=== PATIENT | male | born 1955 | race American Indian/Alaskan Native ===

== ENCOUNTER 2019-08-19 11:23 | Emergency (ER) | payer MEDICARE ==
--- NOTE | 2019-08-19 11:39 | Event Note ---
ED Screening Note ED Screening Note: Mr. Bass is a 64 yo male with hx of COPD, HTN with dizziness and frequent falls. Has chronic hip pain. FOllowed at pain clinic, takes oxycodone. This initial assessment/diagnostic orders/clinical plan/treatment(s) is/are subject to change based on patients health status, clinical progression and re-assessment by fellow clinical providers in the ED. Further treatment and workup at subsequent clinical providers discretion. Patient/guardian urged not to elope from the ED as their condition may be serious if not clinically assessed and managed. Initial orders include: labs
--- NOTE | 2019-08-19 12:19 | Cat Scan Report ---
CT head/brain wo con INDICATION: dizziness. TECHNIQUE: Routine CT head without contrast. All CT scans at this location are performed using CT dos e reduction for ALARA by means of automated exposure control. COMPARISON: None. FINDINGS: BRAIN / INTRACRANIAL CONTENTS: No acute hemorrhage, mass effect, midline shift, or hydrocephalus. No appreciable acute large territorial or lacunar infarct. There is extensive confluent cerebral white m atter hypoattenuation suggesting chronic small vessel ischemic change and multifocal chronic lacunar infarcts in the bilateral basal ganglia. ORBITS: There is enlargement of the bilateral lacrimal glands and orbits. SINUSES / MASTOIDS: No significant abnormality of visualized sinuses and mastoid air cells. ADDITIONAL FINDINGS: None. IMPRESSION: 1. No acute intracranial abnormality. 2. Chronic small vessel ischemic change in the cerebral white matter and multifocal lacunar infarcts in the bilateral basal ganglia. 3. Enlargement of the lacrimal glands within both orbits. While not specific, bilateral lacrimal glan d enlargement can be seen in the setting of underlying lymphoma. Signer Name: Martin Lau MD Signed: 08/19/2019 12:15 PM Workstation Name: [id number]
[2019-08-19] MEDS ORDERED: ACETAMINOPHEN 325 MG TAB PO ONE (21:14)
--- NOTE | 2019-08-19 21:16 | Emergency Department Report ---
ED General Adult HPI - General Chief complaint: Dizziness Stated complaint: DIZZY/LIGHT HEADED Time Seen by Provider: 08/19/19 20:52 Source: patient, RN notes reviewed Mode of arrival: Ambulatory Limitations: No Limitations - History of Present Illness Initial comments: The patient is a pleasant 64-year-old gentleman. He is not known to myself previously. He recently moved here from [place]. He reports a history of chronic hip pain, COPD and possible hypertension. He presents to the ER with 2 complaints. His first complaint is acute on chronic bilateral hip pain. The pain is aching and throbbing. It increases with palpation, range of motion and decreases with rest. It also decreases with oxycodone, which is reportedly prescribed for him by a previous physician in the [facility]. His next complaint is cough. It has occasional sputum. He has no headache, neck pain, chest pain, abdominal pain, irritative and/or obstructive urinary symptoms. He also has chronic right sided red eye, and inferior right eyelid eversion, with some discharge. He was seen by an outpatient reception for this in the [facility]. It is not new, worsened or different. He makes no complaint of dizziness, loss of consciousness, ataxia. -: Gradual Severity scale (0 -10): 10 Quality: other Consistency: other Improves with: other Worsens with: other Associated Symptoms: other - Related Data Previous Rx's Medication Instructions Recorded Last Taken Type Acetaminophen [Non-Aspirin Extra 500 mg PO Q6HR PRN #30 tablet 08/19/19 Unknown Rx Strength] Albuterol Sulfate [Proair 90 mcg IH Q4HR PRN #2 aer.pow.ba 08/19/19 Unknown Rx Respiclick] Gentamicin 0.3% Ophth Soln 1 drops OD Q4H #1 bottle 08/19/19 Unknown Rx Ibuprofen [Motrin] 600 mg PO Q8H PRN #30 tablet 08/19/19 Unknown Rx Polyvinyl Alcohol [Artificial 15 ml OP Q2HR #1 bottle 08/19/19 Unknown Rx Tears] cloNIDine [Catapres] 0.2 mg PO BID #60 tablet 08/19/19 Unknown Rx Allergies Allergy/AdvReac Type Severity Reaction Status Date / Time No Known Allergies Allergy Unverified 08/19/19 11:32 ED Review of Systems ROS: Stated complaint: DIZZY/LIGHT HEADED Other details as noted in HPI Constitutional: denies: fever Eyes: eye discharge. denies: eye pain, vision change ENT: denies: congestion Respiratory: cough. denies: wheezing Cardiovascular: denies: syncope Gastrointestinal: denies: abdominal pain Genitourinary: denies: dysuria Musculoskeletal: arthralgia, myalgia Skin: denies: lesions Neurological: denies: headache, numbness, paresthesias ED Past Medical Hx - Social History Smoking Status: Never Smoker Substance Use Type: None - Medications Home Medications: Home Medications Medication Instructions Recorded Confirmed Last Taken Type Acetaminophen [Non-Aspirin Extra 500 mg PO Q6HR PRN #30 tablet 08/19/19 Unknown Rx Strength] Albuterol Sulfate [Proair 90 mcg IH Q4HR PRN #2 aer.pow.ba 08/19/19 Unknown Rx Respiclick] Gentamicin 0.3% Ophth Soln 1 drops OD Q4H #1 bottle 08/19/19 Unknown Rx Ibuprofen [Motrin] 600 mg PO Q8H PRN #30 tablet 08/19/19 Unknown Rx Polyvinyl Alcohol [Artificial 15 ml OP Q2HR #1 bottle 08/19/19 Unknown Rx Tears] cloNIDine [Catapres] 0.2 mg PO BID #60 tablet 08/19/19 Unknown Rx ED Physical Exam - General Limitations: No Limitations General appearance: alert, in no apparent distress - Head Head exam: Present: atraumatic, normocephalic - Eye Eye exam: Present: PERRL, EOMI, conjunctival injection (There is right-sided inferior conjunctival injection. The right inferior eyelid appears to be minimally swollen, and is extruded. It is easily reduced. The extraocular movements are intact bilaterally. There is minimal discharge noted from the right medial canthus. Pupils are equally reactive to light bilaterally. Visual acuity is intact to finger counting and color perception at a close distance). Absent: nystagmus, periorbital swelling, periorbital tenderness - ENT ENT exam: Present: normal exam, normal orophraynx, mucous membranes moist, normal external ear exam - Neck Neck exam: Present: normal inspection, full ROM. Absent: tenderness, meningismus - Respiratory Respiratory exam: Present: decreased breath sounds. Absent: respiratory distress, wheezes, rales, rhonchi, stridor - Cardiovascular Cardiovascular Exam: Present: regular rate, normal rhythm, normal heart sounds. Absent: bradycardia, tachycardia, irregular rhythm, systolic murmur, diastolic murmur, rubs, gallop - GI/Abdominal GI/Abdominal exam: Present: soft, hernia (There is a reducible right-sided inguinal hernia.). Absent: distended, tenderness, guarding, rebound, rigid, pulsatile mass - Rectal Rectal exam: Present: deferred - Extremities Exam Extremities exam: Present: normal inspection, full ROM, other (2+ pulses noted in the bilateral upper and lower extremities. There is no palpable cord. negative Homans sign. Muscular compartments are soft. The pelvis is stable.) - Back Exam Back exam: Present: normal inspection, full ROM. Absent: tenderness, CVA tenderness (R), CVA tenderness (L), paraspinal tenderness, vertebral tenderness - Neurological Exam Neurological exam: Present: alert, oriented X3, other (There is no facial droop. The tongue is midline. Extraocular movements are intact bilaterally. There is 5 out of 5 strength in bilateral upper and lower extremities. Sensation is intact to light touch bilateral upper and lower extremities. There is no past- pointing. There is no pronator drift. There is normal [id number]-ly-cevd. ). Absent: motor sensory deficit - Psychiatric Psychiatric exam: Present: flat affect - Skin Skin exam: Present: warm, dry, intact, normal color. Absent: rash ED Course Vital Signs 08/19/19 08/19/19 08/19/19 11:34 19:35 20:16 Temperature 98.4 F 97.7 F Pulse Rate 73 63 Respiratory 16 18 Rate Blood Pressure 185/94 173/102 O2 Sat by Pulse 95 96 95 Oximetry 08/19/19 08/19/19 08/19/19 20:30 20:46 21:00 Temperature Pulse Rate 58 L 60 63 Respiratory 17 18 14 Rate Blood Pressure 183/104 183/104 183/104 O2 Sat by Pulse 94 95 97 Oximetry 08/19/19 08/19/19 08/19/19 21:16 21:21 21:30 Temperature 98.6 F Pulse Rate 70 59 L Respiratory 14 16 Rate Blood Pressure 150/121 150/121 O2 Sat by Pulse 94 95 Oximetry 08/19/19 08/19/19 21:45 22:00 Temperature Pulse Rate 61 Respiratory 12 Rate Blood Pressure 150/121 150/121 O2 Sat by Pulse 95 97 Oximetry - Reevaluation(s) Reevaluation #1: 08/19/19 22:25 requests refill of clonidine 0.2 BID ED Medical Decision Making - Lab Data Vital Signs 08/19/19 08/19/19 08/19/19 11:34 19:35 20:16 Temperature 98.4 F 97.7 F Pulse Rate 73 63 Respiratory 16 18 Rate Blood Pressure 185/94 173/102 O2 Sat by Pulse 95 96 95 Oximetry 08/19/19 08/19/19 08/19/19 20:30 20:46 21:00 Temperature Pulse Rate 58 L 60 63 Respiratory 17 18 14 Rate Blood Pressure 183/104 183/104 183/104 O2 Sat by Pulse 94 95 97 Oximetry 08/19/19 08/19/19 08/19/19 21:16 21:21 21:30 Temperature 98.6 F Pulse Rate 70 59 L Respiratory 14 16 Rate Blood Pressure 150/121 150/121 O2 Sat by Pulse 94 95 Oximetry - Radiology Data Radiology results: report reviewed, image reviewed Noncontrast CT scan of the brain is negative for acute findings. Chronic findings noted. X-ray of the chest, interpreted by myself, hyperinflated lungs, suggestive of COPD, otherwise, no acute findings. - Medical Decision Making Differential diagnosis, including not limited to: Chronic arthritis, chronic COPD, chronic elevated blood pressure Assessment and plan: 64-year-old gentleman presenting with chronic hip pain, and chronic cough. He is afebrile with reassuring vital signs. He makes no complaint of dizziness, loss of consciousness, ataxia or unsteady gait to myself. His physical examination is fairly unremarkable. Elevated blood pressure is reviewed and appreciated, please reference the [employer] clinical policy on hypertension which is not acutely symptomatic. A CT scan of the brain was ordered prior to my personal evaluation. It is negative for significant findings. The patient does not appear to have an emergent medical condition at this time. He will be discharged at this time. He can follow-up with a local outpatient primary care doctor. Return precautions are reviewed. he can also follow up with an reception for his chronic ocular issues Critical care attestation.: If time is entered above; I have spent that time in minutes in the direct care of this critically ill patient, excluding procedure time. ED Disposition Clinical Impression: COPD (chronic obstructive pulmonary disease), Chronic hip pain, Elevated blood pressure reading Disposition: - TO HOME OR SELFCARE Is pt being admited?: No Does the pt Need Aspirin: No Condition: Stable Additional Instructions: Take the medications as needed and directed. Recommend patient follow-up with an outpatient primary care doctor within the next 2 to 3 weeks. Recommend patient follow-up with an outpatient reception within the next 7 to 10 days. Participate in physical activities as tolerated, rest and avoid heavy lifting. Return to the emergency room right away with new, worsened or different symptoms, or symptoms not present on the initial emergency room evaluation. Prescriptions: Polyvinyl Alcohol [Artificial Tears] 15 ml OP Q2HR #1 bottle cloNIDine [Catapres] 0.2 mg PO BID #60 tablet Gentamicin 0.3% Ophth Soln 1 drops OD Q4H #1 bottle Ibuprofen [Motrin] 600 mg PO Q8H PRN #30 tablet PRN Reason: Pain Acetaminophen [Non-Aspirin Extra Strength] 500 mg PO Q6HR PRN #30 tablet PRN Reason: Pain , Severe (7-10) Albuterol Sulfate [Proair Respiclick] 90 mcg IH Q4HR PRN #2 aer.pow.ba PRN Reason: Wheezing Referrals: CARMELITA COREAS MD [Staff Physician] - 3-5 Days ISIDRA MEJÍA MD [Staff Physician] - 3-5 Days
[2019-08-19 21:38] VITALS: BP 150/121
--- NOTE | 2019-08-19 22:00 | XRay Report ---
CHEST 2 VIEWS INDICATION / CLINICAL INFORMATION: cough. Dizziness and hypertension. COMPARISON: None available. FINDINGS: SUPPORT DEVICES: None. HEART / MEDIASTINUM: No significant abnormality. LUNGS / PLEURA: Lungs are slightly hyperinflated. No acute airspace or interstitial disease. No pneum othorax. ADDITIONAL FINDINGS: No significant additional findings. IMPRESSION: 1. Hyperinflated lungs but no acute pulmonary or pleural findings. Signer Name: Minh Monahan MD Signed: 08/19/2019 9:56 PM Workstation Name: [id number]
== END 2019-08-19 22:15 | disposition home or self-care (01) ==
LOC: ED 11:23
DX: J44.9 Chronic obstructive pulmonary disease, unspecified (principal); M25.552 Pain in left hip; M25.551 Pain in right hip; R03.0 Elevated blood-pressure reading, without diagnosis of hypertension; R51 Headache; Z79.1 Long term (current) use of non-steroidal anti-inflammatories (NSAID); Z79.899 Other long term (current) drug therapy
CPT/HCPCS: 70450; 71046

== ENCOUNTER 2019-10-13 13:41 | Inpatient (IN) | payer MEDICARE ==
--- NOTE | 2019-10-13 14:31 | Emergency Department Report ---
HPI - General Chief Complaint: Neuro Symptoms/Deficit Time Seen by Provider: 10/13/19 14:16 - HPI HPI: Room 24 The patient is a 64-year-old male present with a chief complaint of weakness. Per EMS the patient was found on his floor by his granddaughter. The patient reports he felt weak and fell to the ground 2 days ago. The patient reportedly has been on the floor for 2 days. Family noted the patient's speech has been slower and less clear than in the past. 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 The patient speech is very difficult to understand during the interview ED Past Medical Hx - Past Medical History Previous Medical History?: Yes Hx Hypertension: Yes Hx CVA: Yes (Right-sided weakness) Hx COPD: Yes Additional medical history: hips injured during previous fall - Surgical History Additional Surgical History: pollops removed from buttocks. - Family History Family history: no significant - Social History Smoking Status: Never Smoker Substance Use Type: None - Medications Home Medications: Home Medications Medication Instructions Recorded Confirmed Last Taken Type Acetaminophen [Non-Aspirin Extra 500 mg PO Q6HR PRN #30 tablet 08/19/19 Unknown Rx Strength] Albuterol Sulfate [Proair 90 mcg IH Q4HR PRN #2 aer.pow.ba 08/19/19 Unknown Rx Respiclick] Gentamicin 0.3% Ophth Soln 1 drops OD Q4H #1 bottle 08/19/19 Unknown Rx Ibuprofen [Motrin] 600 mg PO Q8H PRN #30 tablet 08/19/19 Unknown Rx Polyvinyl Alcohol [Artificial 15 ml OP Q2HR #1 bottle 08/19/19 Unknown Rx Tears] cloNIDine [Catapres] 0.2 mg PO BID #60 tablet 08/19/19 Unknown Rx ED Review of Systems ROS: Stated complaint: POSS STROKE Other details as noted in HPI Constitutional: weakness Physical Exam - Physical Exam Vital Signs: Vital Signs 10/13/19 14:06 Pulse Rate 84 Respiratory 16 Rate Blood Pressure 170/100 O2 Sat by Pulse 98 Oximetry Physical Exam: GENERAL: The patient is well-developed well-nourished male sitting on stretcher not appearing to be in acute distress. [] HEENT: Normocephalic. Atraumatic. Extraocular motions are intact. Patient has moist mucous membranes. Right conjunctiva injected and swollen NECK: Supple. Trachea midline CHEST/LUNGS: Clear to auscultation. There is no respiratory distress noted. HEART/CARDIOVASCULAR: Regular. There is no tachycardia. There is no gallop rub or murmur. ABDOMEN: Abdomen is soft, nontender. Patient has normal bowel sounds. There is no abdominal distention. SKIN: There is no rash. There is no edema. There is no diaphoresis. NEURO: The patient is awake and alert. The patient is cooperative. Cranial nerves II through XII grossly intact. The patient speaks mostly unintelligibly. Patient unable to lift right lower extremity off of bed. Patient exhibits difficulty raising right upper extremity above his head when compared to the left MUSCULOSKELETAL: There is no evidence of acute injury. ED Course Vital Signs 10/13/19 14:06 Pulse Rate 84 Respiratory 16 Rate Blood Pressure 170/100 O2 Sat by Pulse 98 Oximetry - Consultations Consultation #1: 10/13/19 15:35 Case discussed with telemetry neurologist- recommends CTA brain and neck ED Medical Decision Making - Lab Data Result diagrams: 10/13/19 14:46 10/13/19 14:46 Laboratory Tests 10/13/19 10/13/19 10/13/19 14:46 14:46 14:46 WBC 6.6 RBC 7.16 H Hgb 17.3 H Hct 53.9 H MCV 75 L MCH 24 L MCHC 32 RDW 15.4 H Plt Count 157 Lymph % (Auto) Delinquent [employer]or Story % (Auto) Delinquent Tax [employer]or Eos % (Auto) Delinquent Tax [employer]or Baso % (Auto) Delinquent Tax [employer]or Lymph # Delinquent [employer]or Story # Delinquent [employer]or Eos # Delinquent [employer]or Baso # Delinquent [employer]or Seg Neutrophils % Delinquent [employer]or Seg Neutrophils # Delinquent [employer]or PT 12.7 INR 0.94 APTT 45.8 H Thrombin Time Sodium 139 Potassium 5.3 H Chloride 97.3 L Carbon Dioxide 20 L Anion Gap 27 BUN 27 H Creatinine 1.1 Estimated GFR > 60 BUN/Creatinine Ratio 25 Glucose 99 Calcium 10.3 H Ammonia Total Creatine Kinase CK-MB (CK-2) CK-MB (CK-2) Rel Index Troponin T < 0.010 10/13/19 10/13/19 10/13/19 14:46 14:46 14:46 WBC RBC Hgb Hct MCV MCH MCHC RDW Plt Count Lymph % (Auto) Story % (Auto) Eos % (Auto) Baso % (Auto) Lymph # Story # Eos # Baso # Seg Neutrophils % Seg Neutrophils # PT INR APTT Thrombin Time 15.8 Sodium Potassium Chloride Carbon Dioxide Anion Gap BUN Creatinine Estimated GFR BUN/Creatinine Ratio Glucose Calcium Ammonia > 10.0 L Total Creatine Kinase 520 H CK-MB (CK-2) 4.0 CK-MB (CK-2) Rel Index 0.7 Troponin T - EKG Data -: EKG Interpreted by Me EKG shows normal: sinus rhythm Rate: normal - EKG Data When compared to previous EKG there are: previous EKG unavailable Interpretation: nonspecific ST-T wave joseline (T wave inversion in lead aVL) - Radiology Data Radiology results: report reviewed (Pelvis x-ray), image reviewed (Pelvis x-ray) interpreted by me: Pelvis x-ray-no acute fracture [facility] [address] [place] [address] XRay Report Signed Patient: KAMI AGUILAR MR#: [id number] : 1955 Acct:[id number] Age/Sex: 64 / M ADM Date: 10/13/19 Loc: ED Attending Dr: Ramez bennett Physician: KALLIE RACHEL MD Date of Service: 10/13/19 Procedure(s): XR pelvis 1-2V Accession Number(s): [id number] cc: KALLIE RACHEL MD Fluoro Time In Minutes: AP PELVIS INDICATION: Found on ground/ pelvic pain. COMPARISON: No relevant prior imaging study available. FINDINGS: No acute, displaced fracture is seen on this single portable view. Mild degenerative changes are noted at the hips and pelvis. IMPRESSION: 1. No acute findings. If clinical suspicion for radiographically occult fracture is high, additional views or CT should be considered. Signer Name: Sterling Becerra MD Signed: 10/13/2019 2:58 PM Workstation Name: [id number] Transcribed By: Dictated By: Sterling Becerra MD Electronically Authenticated By: Sterling Becerra MD Signed Date/Time: 10/13/191457 DD/ 55 TD/TT: - Differential Diagnosis CVA, rhabdomyolysis, hepatic encephalopathy, pelvic fracture Critical care attestation.: If time is entered above; I have spent that time in minutes in the direct care of this critically ill patient, excluding procedure time. ED Disposition Clinical Impression: CVA (cerebral vascular accident) Disposition: DC-09 OP ADMIT IP TO THIS HOSP Is pt being admited?: Yes Does the pt Need Aspirin: Yes Condition: Fair
--- NOTE | 2019-10-13 15:02 | XRay Report ---
AP PELVIS INDICATION: Found on ground/ pelvic pain. COMPARISON: No relevant prior imaging study available. FINDINGS: No acute, displaced fracture is seen on this single portable view. Mild degenerative changes are note d at the hips and pelvis. IMPRESSION: 1. No acute findings. If clinical suspicion for radiographically occult fracture is high, additional views or CT should be considered. Signer Name: Sterling Becerra MD Signed: 10/13/2019 2:58 PM Workstation Name: [id number]
[2019-10-13 15:29] LABS: Hematocrit 53.9 % (35.5-45.6); Hemoglobin 17.3 gm/dl (11.8-15.2); INR 0.94 (0.87-1.13); Mean Corpuscular HGB Conc 32 % (32-34); Mean Corpuscular Volume 75 fl (84-94); Platelet Count 157 K/mm3 (140-440); Red Blood Count 7.16 M/mm3 (3.65-5.03); Red Cell Distribution Width 15.4 % (13.2-15.2)
[2019-10-13 15:30] LABS: Partial Thromboplastin Time 45.8 Sec. (24.2-36.6)
[2019-10-13 15:52] LABS: Blood Urea Nitrogen 27 mg/dL (9-20)
[2019-10-13 15:53] LABS: BUN/Creatinine Ratio 25; Calcium 10.3 mg/dL (8.4-10.2); Hemolysis Index 64
--- NOTE | 2019-10-13 16:19 | Cat Scan Report ---
CT head/brain wo con INDICATION / CLINICAL INFORMATION: 64 years Male; neuro deficits <6hrs or sx present upon awakening. TECHNIQUE: Routine CT head without contrast. All CT scans at this location are performed using CT dos e reduction for ALARA by means of automated exposure control. COMPARISON: The study is compared to the previous CT of 08/19/2019. FINDINGS: BRAIN / INTRACRANIAL CONTENTS: There is extensive cerebral and pontine white matter disease most cons istent with microvascular angiopathy. There are old lacunar infarcts involving basal ganglia and thal ami as well as the deep cerebral white matter. The above findings appear to correlate with the previo us CT. There is no clear CT evidence of acute intracranial hemorrhage or significant mass effect. There is mild cerebral atrophy. The ventricular system remains unchanged in size and configuration. ORBITS: There is continued notable enlargement of the lacrimal glands bilaterally which correlates wi th the prior exam. There is also now a 2.2 similar rounded lesion along the visualized anterior, supe rior margin of the left parotid gland. A smaller 1 cm nodule seen on the right. The combination of fi ndings are nonspecific though may again represent lymphoproliferative disorder. SINUSES / MASTOIDS: The visualized mastoid air cells are pneumatized. There is mild scattered opacifi cation within the left mastoid air cells. CRANIOCERVICAL JUNCTION: No significant abnormality. ADDITIONAL FINDINGS: The included reconstructed images are of nondiagnostic quality. IMPRESSION: 1. There is continued extensive microvascular angiopathy as detailed above without CT evidence of acu te intracranial hemorrhage. 2. There is continued at notable enlargement of the lacrimal glands bilaterally. Additionally, a 2.2 similar rounded lesion is now seen along the anterior, superior margin of the left parotid gland, als o described above. Signer Name: Hank Dickey MD Signed: 10/13/2019 4:15 PM Workstation Name: [id number]
[2019-10-13] MEDS ORDERED: ASPIRIN 325 MG TAB PO ONE (19:31)
--- NOTE | 2019-10-13 20:12 | Cat Scan Report ---
CTA NECK WITH CONTRAST HISTORY: Ataxia COMPARISON: None. TECHNIQUE: Routine CTA of the neck was performed. 3-D/MIP reformats were postprocessed. Percentage s tenosis is determined by direct quantitative measurements of diseased internal carotid artery diamete r compared with normal distal internal carotid artery reference segments or by criteria similar to NA SCET where applicable.All CT scans at this location are performed using CT dose reduction for ALARA b y means of automated exposure control CONTRAST: 100 ml of Omnipaque 350 FINDINGS: Aortic arch: Origins of the major arteries from the aorta and aortic arch not included. Proximal inno minate, left common and left subclavian arteries are normal. Cervical vertebral arteries: No significant abnormality. Common carotid arteries: No significant abnormality. Carotid bifurcations: Normal Cervical internal carotid arteries: Cervical segment of right internal carotid artery is normal; nons tenotic calcified plaque in the proximal left internal carotid artery 2 cm from the origin Additional findings: 3 cm sized left parotid lesion; 2 smaller lesions in the left parotid measuring approximately a centimeter. 1 cm sized nodular lesion in the right parotid gland; statistically, clyde gn mixed tumors and the commonest parotid lesions. They could be multiple also. IMPRESSION: 1. No significant abnormality. Multiple parotid lesions Signer Name: Michelle Moreno MD Signed: 10/13/2019 8:07 PM Workstation Name: [id number]
--- NOTE | 2019-10-13 20:24 | Cat Scan Report ---
CTA HEAD WITH CONTRAST HISTORY: Aphasia COMPARISON: None. TECHNIQUE: Routine non-contrast CT Head, CTA of the head and post-contrast CT Head are performed. 3-D /MIP reformats postprocessed. All CT scans at this location are performed using CT dose reduction for ALARA by means of automated exposure control CONTRAST: 100 ml of Omnipaque 350 FINDINGS: CTA Head: Intracranial vertebral arteries: No significant abnormality. Basilar artery: No significant abnormality. Posterior cerebral arteries: No significant abnormality. Intracranial internal carotid arteries: No significant abnormality. Nonstenotic vascular calcificatio n Anterior cerebral arteries: No significant abnormality. Middle cerebral arteries: No significant abnormality. Dural venous sinuses:Not optimally opacified. No significant abnormality. Additional findings: 1. Enlarged lacrimal glands bilaterally symmetrically; approximately 15 mm sized lesion in the left p osterior lacrimal gland with decreased enhancement 2. Bilateral parotid lesions 3 cm sized lesion on the left side; Parotid and lacrimal gland lesions could be benign mixed tumors. However, in a focal nonenhancing are a is worrisome for lymphoma. 3. 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 Right superior ophthalmic vein is markedly dilated. IMPRESSION: [place] and middle cerebral arteries are normal. Signer Name: Michelle Moreno MD Signed: 10/13/2019 8:19 PM Workstation Name: [id number]
--- NOTE | 2019-10-14 00:33 | History and Physical Report ---
History of Present Illness Date of examination: 10/13/19 History of present illness: 64-year-old man with a history of hypertension, CVA with right hemiparesis, COPD was sent to the emergency room for evaluation. Apparently he was found on the floor and was noted to have slurred speech. The patient is unable to give a history, review of system is unobtainable. The patient will be admitted for acute CVA PAST MEDICAL HISTORY: hypertension, CVA with right hemiparesis, COPD PAST SURGICAL HISTORY: SOCIAL HISTORY: Denies alcohol, tobacco, drugs FAMILY HISTORY: Hypertension PUI?: No Medications and Allergies Allergies Allergy/AdvReac Type Severity Reaction Status Date / Time No Known Allergies Allergy Verified 10/13/19 23:12 Home Medications Medication Instructions Recorded Confirmed Last Taken Type Acetaminophen [Non-Aspirin Extra 500 mg PO Q6HR PRN #30 tablet 08/19/19 Unknown Rx Strength] Albuterol Sulfate [Proair 90 mcg IH Q4HR PRN #2 aer.pow.ba 08/19/19 Unknown Rx Respiclick] Gentamicin 0.3% Ophth Soln 1 drops OD Q4H #1 bottle 08/19/19 Unknown Rx Ibuprofen [Motrin] 600 mg PO Q8H PRN #30 tablet 08/19/19 Unknown Rx Polyvinyl Alcohol [Artificial 15 ml OP Q2HR #1 bottle 08/19/19 Unknown Rx Tears] cloNIDine [Catapres] 0.2 mg PO BID #60 tablet 08/19/19 Unknown Rx Active Meds: Active Medications Enoxaparin Sodium (Enoxaparin) 40 mg SUB-Q QDAY [place] Exam - Physical Exam Narrative exam: Gen. appearance: Patient lying in bed, no apparent distress HEENT: Normocephalic, atraumatic, pupils equally round and reactive to light, extraocular movement intact, and no sclericterus,. No JVD or thyromegaly or nodule,neck supple, no carotid bruit ,mucous membranes moist, no exudate or erythema Heart: S1, S2, regular rate and rhythm Lungs: Clear bilaterally, breathing comfortable Abdomen: Positive bowel sounds, nontender, nondistended, no organomegaly Extremity: no edema, cyanosis, clubbing Skin: No rash, nodules, warm, dry Neuro: Dysarthria, difficult to assess cranial nerves, right hemiparesis - Constitutional Vitals: Temp Pulse Resp BP Pulse Ox 97.2 F L 66 16 151/98 97 10/13/19 16:45 10/13/19 17:55 10/13/19 17:55 10/13/19 17:55 10/13/19 17:55 Results - Labs CBC & Chem 7: 10/13/19 14:46 10/13/19 14:46 Labs: Abnormal lab results 10/13/19 10/13/19 10/13/19 Range/Units 14:46 14:46 14:46 RBC 7.16 H (3.65-5.03) M/mm3 Hgb 17.3 H (11.8-15.2) gm/dl Hct 53.9 H (35.5-45.6) % MCV 75 L (84-94) fl MCH 24 L (28-32) pg RDW 15.4 H (13.2-15.2) % APTT 45.8 H (24.2-36.6) Sec. Potassium 5.3 H (3.6-5.0) mmol/L Chloride 97.3 L (98-107) mmol/L Carbon Dioxide 20 L (22-30) mmol/L BUN 27 H (9-20) mg/dL Calcium 10.3 H (8.4-10.2) mg/dL Ammonia (25-60) umol/L Total Creatine Kinase (55-170) units/L 10/13/19 10/13/19 Range/Units 14:46 14:46 RBC (3.65-5.03) M/mm3 Hgb (11.8-15.2) gm/dl Hct (35.5-45.6) % MCV (84-94) fl MCH (28-32) pg RDW (13.2-15.2) % APTT (24.2-36.6) Sec. Potassium (3.6-5.0) mmol/L Chloride (98-107) mmol/L Carbon Dioxide (22-30) mmol/L BUN (9-20) mg/dL Calcium (8.4-10.2) mg/dL Ammonia > 10.0 L (25-60) umol/L Total Creatine Kinase 520 H (55-170) units/L - Imaging and Cardiology CT Scan - head: report reviewed Assessment and Plan CTA head and neck reviewed Assessment Acute CVA Obtain MRI of the head, echo Do neuro checks, swallow screen Start aspirin, statin Consult neurology, physical and Occupational Therapy Parotid lesions Suspicious for lymphoma, consult oncology Hyperkalemia, give Kayexalate Monitor potassium Hypertension Start IV hydralazine as needed for blood pressure control COPD, stable Rhabdomyolysis Start IV fluids, monitor CK DVT prophylaxis
[2019-10-14] MEDS ORDERED: METOCLOPRAMIDE 10 MG TAB PO PRN (00:34)
[2019-10-14] MEDS ORDERED: ACETAMINOPHEN 325 MG TAB PO PRN (00:34)
[2019-10-14] MEDS ORDERED: ONDANSETRON 4 MG/2 ML INJ IV PRN (00:34)
[2019-10-14] MEDS ORDERED: MAGNESIUM HYDROXIDE (MOM) ORAL LIQD UDC PO PRN (00:34)
[2019-10-14] MEDS ORDERED: ACETAMINOPHEN 650 MG RECT SUPP PR PRN (00:34)
[2019-10-14] MEDS ORDERED: hydrALAZINE 20 MG/1 ML INJ IV PRN (00:37)
[2019-10-14] MEDS ORDERED: SODIUM POLYSTYRENE 15 GM/60 ML ORAL LIQD PO ONE (01:56)
[2019-10-14] MEDS ORDERED: FUROSEMIDE 40 MG/4 ML INJ ONE (02:10)
[2019-10-14 02:46] LABS: Creatine Kinase MB 3.2 ng/mL (0.0-4.0)
--- NOTE | 2019-10-14 08:34 | Progress Note ---
Assessment and Plan Assessment and plan: Patient is a 64 yo man with a history of hypertension, OA with chronic hip pains, COPD, chronic right eye redness with inferior right eyelid eversion under care of outpatient [facility] in [place] and prior CVA with right hemiparesis but walks with a cane who presented to [facility] ED with slurred speech and being found on the floor for 2 days. * CTA neck IMPRESSION: 1. No significant abnormality. Multiple parotid lesions * CTA head IMPRESSION: [place] and middle cerebral arteries are norm al. Additional findings: 1. Enlarged lacrimal glands bilaterally symmetrically; approximately 15 mm sized lesion in the left posterior lacrimal gland with decreased enhancement 2. Bilateral parotid lesions 3 cm sized lesion on the left side; Parotid and lacrimal gland lesions could be benign mixed tumors. However, in a focal nonenhancing area is worrisome for lymphoma. 3. 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 Right superior ophthalmic vein is markedly dilated * XRAY pelvis IMPRESSION: 1. No acute findings. If clinical suspicion for radiographically occult fracture is high, additional views or CT should be considered * 2v CXR IMPRESSION: 1. Hyperinflated lungs but no acute pulmonary or pleural findings. * CT head Impression: IMPRESSION: 1. There is continued extensive microvascular angiopathy as detailed above without CT evidence of acute intracranial hemorrhage 2. There is continued at notable enlargement of the lacrimal glands bilaterally. Additionally, a 2.2 similar rounded lesion is now seen along the anterior, superior margin of the left parotid gland, also described above. Acute CVA: Obtain MRI of the head, echo, Do neuro checks, swallow screen, Start aspirin, statin, Consult neurology, physical and Occupational Therapy, ECHO pending Parotid lesions: Suspicious for lymphoma, consult Oncology Hyperkalemia, give Kayexalate: Monitor potassium Hypertension: Start IV hydralazine as needed for blood pressure control COPD, stable Rhabdomyolysis: Start IV fluids, monitor CK Right superior ophthalmic vein is markedly dilated, ?cerebral malformation: Neurology consulted DVT prophylaxis: sq lovenox Polycythemia with Hgb 17.3, HCT 53.9: treat with IVF History Interval history: Patient was seen and examined. Follow-up on current diagnosis of CVA. Overnight uneventful as no events directly reported to me. Patient is dysarthric. Imaging, nursing note, chart, labs and old chart reviewed. PUI?: No Hospitalist Physical - Physical exam Narrative exam: Gen: thin frial NAD, Awake, Alert, dysarthric HEENT: NCAT, EOMI, right lower eye lid everted with red eyes, OP Clear Neck: supple, no adenopathy, no thyromegaly, no JVD CVS/Heart: RRR, normal S1S2, pulses present bilaterally Chest/Lungs: CTA B, Symmetrical chest expansion, good air entry bilaterally GI/Abdomen: soft, NTND, good bowel sounds, no guarding or rebound /Bladder: no suprapubic tenderness, no CVA or paraspinal tenderness Extermity/Skin: no c/c/e, no obvious rash MSK: FROM x 3, RHP Neuro: CN 2-12 grossly intact except speech, old RHP, no new focal deficits, expressive aphrasia Psych: calm - Constitutional Vitals: Temp Pulse Resp BP Pulse Ox 98.8 F 63 18 146/89 100 10/14/19 01:00 10/14/19 01:00 10/14/19 01:00 10/14/19 01:00 10/14/19 01:00 Results - Labs CBC & Chem 7: 10/13/19 14:46 10/13/19 14:46 Labs: Laboratory Last Values WBC 6.6 K/mm3 (4.5-11.0) 10/13/19 14:46 RBC 7.16 M/mm3 (3.65-5.03) H 10/13/19 14:46 Hgb 17.3 gm/dl (11.8-15.2) H 10/13/19 14:46 Hct 53.9 % (35.5-45.6) H 10/13/19 14:46 MCV 75 fl (84-94) L 10/13/19 14:46 MCH 24 pg (28-32) L 10/13/19 14:46 MCHC 32 % (32-34) 10/13/19 14:46 RDW 15.4 % (13.2-15.2) H 10/13/19 14:46 Plt Count 157 K/mm3 (140-440) 10/13/19 14:46 Lymph % (Auto) Family Services Specialist 10/13/19 14:46 [place] % (Auto) Family Services Specialist 10/13/19 14:46 Eos % (Auto) Family Services Specialist 10/13/19 14:46 Baso % (Auto) Family Services Specialist 10/13/19 14:46 Lymph # Family Services Specialist 10/13/19 14:46 Davis # Family Services Specialist 10/13/19 14:46 Eos # Family Services Specialist 10/13/19 14:46 Baso # Family Services Specialist 10/13/19 14:46 Seg Neutrophils % Family Services Specialist 10/13/19 14:46 Seg Neutrophils # Family Services Specialist 10/13/19 14:46 PT 12.7 Sec. (12.2-14.9) 10/13/19 14:46 INR 0.94 (0.87-1.13) 10/13/19 14:46 APTT 45.8 Sec. (24.2-36.6) H 10/13/19 14:46 Thrombin Time 15.8 Sec. (15.1-19.6) 10/13/19 14:46 Sodium 139 mmol/L (137-145) 10/13/19 14:46 Potassium 5.3 mmol/L (3.6-5.0) H 10/13/19 14:46 Chloride 97.3 mmol/L (98-107) L 10/13/19 14:46 Carbon Dioxide 20 mmol/L (22-30) L 10/13/19 14:46 Anion Gap 27 mmol/L 10/13/19 14:46 BUN 27 mg/dL (9-20) H 10/13/19 14:46 Creatinine 1.1 mg/dL (0.8-1.5) 10/13/19 14:46 Estimated GFR > 60 ml/min 10/13/19 14:46 BUN/Creatinine Ratio 25 % 10/13/19 14:46 Glucose 99 mg/dL (75-100) 10/13/19 14:46 Calcium 10.3 mg/dL (8.4-10.2) H 10/13/19 14:46 Ammonia > 10.0 umol/L (25-60) L 10/13/19 14:46 Total Creatine Kinase 291 units/L (55-170) H 10/14/19 07:07 CK-MB (CK-2) 3.0 ng/mL (0.0-4.0) 10/14/19 07:07 CK-MB (CK-2) Rel Index 1.0 (0-4) 10/14/19 07:07 Troponin T < 0.010 ng/mL (0.00-0.029) 10/14/19 07:07 Adams/IV: Voiding Method Urinal IV Catheter Type [Right Peripheral IV Antecubital] Active Medications - Current Medications Current Medications: Generic Name Dose Route Start Last Admin Trade Name Freq PRN Reason Stop Dose Admin Acetaminophen 650 mg 10/14/19 00:34 Tylenol PO Q4H PRN Pain, Mild (1-3) Acetaminophen 650 mg 10/14/19 00:34 Tylenol [place] Q4H PRN Pain, Mild (1-3) Aspirin 325 mg 10/14/19 10:00 Aspirin PO QDAY [place] Atorvastatin Calcium 40 mg 10/14/19 22:00 Lipitor PO QHS FEDERICA Bisacodyl 10 mg 10/14/19 00:34 Dulcolax IL QDAY PRN Constipation Enoxaparin Sodium 40 mg 10/14/19 10:00 Enoxaparin SUB-Q QDAY [facility] Hydralazine HCl 5 mg 10/14/19 00:37 Apresoline IV Q6H PRN Hypertension Sodium Chloride 1,000 mls @ 100 mls/hr 10/14/19 00:45 Nacl 0.9% 1000 Ml IV DIRECT [place] Magnesium Hydroxide 30 ml 10/14/19 00:34 Milk Of Magnesia PO Q4H PRN Constipation Metoclopramide HCl 10 mg 10/14/19 00:34 Reglan PO Q6H PRN Nausea And Vomiting Ondansetron HCl 4 mg 10/14/19 00:34 Zofran IV Q8H PRN Nausea And Vomiting Sodium Chloride 10 ml 10/14/19 00:34 Sodium Chloride Flush Syringe 10 Ml IV PRN PRN LINE FLUSH
--- NOTE | 2019-10-14 08:39 | Hem/Onc Consultation ---
History of Present Illness - Reason for Consult Consult date: 10/14/19 parotid lesion Requesting physician: ADRIENNE DALLAS?: No - History of Present Illness 64-year-old man with a history of hypertension, CVA with right hemiparesis, COPD was sent to the emergency room for evaluation. Apparently he was found on the floor and was noted to have slurred speech. The patient is unable to give a history, review of system is unobtainable. The patient was admitted for acute CVA CT showed parotid lesions - consulted for same also has high RBC count low MCV and high HB PAST MEDICAL HISTORY: hypertension, CVA with right hemiparesis, COPD SOCIAL HISTORY: Denies alcohol, tobacco, drugs FAMILY HISTORY: Hypertension Medications and Allergies Allergies Allergy/AdvReac Type Severity Reaction Status Date / Time No Known Allergies Allergy Verified 10/13/19 23:12 Home Medications Medication Instructions Recorded Confirmed Last Taken Type Acetaminophen [Non-Aspirin Extra 500 mg PO Q6HR PRN #30 tablet 08/19/19 Unknown Rx Strength] Albuterol Sulfate [Proair 90 mcg IH Q4HR PRN #2 aer.pow.ba 08/19/19 Unknown Rx Respiclick] Gentamicin 0.3% Ophth Soln 1 drops OD Q4H #1 bottle 08/19/19 Unknown Rx Ibuprofen [Motrin] 600 mg PO Q8H PRN #30 tablet 08/19/19 Unknown Rx Polyvinyl Alcohol [Artificial 15 ml OP Q2HR #1 bottle 08/19/19 Unknown Rx Tears] cloNIDine [Catapres] 0.2 mg PO BID #60 tablet 08/19/19 Unknown Rx Active Meds: Active Medications Acetaminophen (Tylenol) 650 mg PO Q4H PRN PRN Reason: Pain, Mild (1-3) Acetaminophen (Tylenol) 650 mg CO Q4H PRN PRN Reason: Pain, Mild (1-3) Aspirin (Aspirin) 325 mg PO QDAY [place] Atorvastatin Calcium (Lipitor) 40 mg PO QHS [place] Bisacodyl (Dulcolax) 10 mg CO QDAY PRN PRN Reason: Constipation Enoxaparin Sodium (Enoxaparin) 40 mg SUB-Q QDAY [place] Hydralazine HCl (Apresoline) 5 mg IV Q6H PRN PRN Reason: Hypertension Sodium Chloride (Nacl 0.9% 1000 Ml) 1,000 mls @ 100 mls/hr IV DIRECT [place] Magnesium Hydroxide (Milk Of Magnesia) 30 ml PO Q4H PRN PRN Reason: Constipation Metoclopramide HCl (Reglan) 10 mg PO Q6H PRN PRN Reason: Nausea And Vomiting Ondansetron HCl (Zofran) 4 mg IV Q8H PRN PRN Reason: Nausea And Vomiting Sodium Chloride (Sodium Chloride Flush Syringe 10 Ml) 10 ml IV PRN PRN PRN Reason: LINE FLUSH Exam - Constitutional Vitals: Last Vital Signs Temp 98.8 F 10/14/19 01:00 Pulse 63 10/14/19 01:00 Resp 18 10/14/19 01:00 BP 146/89 10/14/19 01:00 Pulse Ox 100 10/14/19 01:00 Results - Labs lab Results: Laboratory Results - last 24 hr 10/13/19 10/13/19 10/13/19 14:46 14:46 14:46 WBC 6.6 RBC 7.16 H Hgb 17.3 H Hct 53.9 H MCV 75 L MCH 24 L MCHC 32 RDW 15.4 H Plt Count 157 Lymph % (Auto) Clinical Nurse [place] % (Auto) Clinical Nurse Eos % (Auto) Clinical Nurse Baso % (Auto) Clinical Nurse Lymph # Clinical Nurse [place] # Clinical Nurse Eos # Clinical Nurse Baso # Clinical Nurse Seg Neutrophils % Clinical Nurse Seg Neutrophils # Clinical Nurse PT 12.7 INR 0.94 APTT 45.8 H Thrombin Time Sodium 139 Potassium 5.3 H Chloride 97.3 L Carbon Dioxide 20 L Anion Gap 27 BUN 27 H Creatinine 1.1 Estimated GFR > 60 BUN/Creatinine Ratio 25 Glucose 99 Calcium 10.3 H Ammonia Total Creatine Kinase CK-MB (CK-2) CK-MB (CK-2) Rel Index Troponin T < 0.010 10/13/19 10/13/19 10/13/19 14:46 14:46 14:46 WBC RBC Hgb Hct MCV MCH MCHC RDW Plt Count Lymph % (Auto) [place] % (Auto) Eos % (Auto) Baso % (Auto) Lymph # [place] # Eos # Baso # Seg Neutrophils % Seg Neutrophils # PT INR APTT Thrombin Time 15.8 Sodium Potassium Chloride Carbon Dioxide Anion Gap BUN Creatinine Estimated GFR BUN/Creatinine Ratio Glucose Calcium Ammonia > 10.0 L Total Creatine Kinase 520 H CK-MB (CK-2) 4.0 CK-MB (CK-2) Rel Index 0.7 Troponin T 10/14/19 10/14/19 01:38 07:07 WBC RBC Hgb Hct MCV MCH MCHC RDW Plt Count Lymph % (Auto) [place] % (Auto) Eos % (Auto) Baso % (Auto) Lymph # [place] # Eos # Baso # Seg Neutrophils % Seg Neutrophils # PT INR APTT Thrombin Time Sodium Potassium Chloride Carbon Dioxide Anion Gap BUN Creatinine Estimated GFR BUN/Creatinine Ratio Glucose Calcium Ammonia Total Creatine Kinase 351 H 291 H CK-MB (CK-2) 3.2 3.0 CK-MB (CK-2) Rel Index 0.9 1.0 Troponin T < 0.010 < 0.010 Assessment and Plan # parotid lesions - CT mentions - b/l - ? mixed parotid tumor one CT report mention lymphoma pt would need ENT eval for path - lacrimal and parotid lesions will also be seen in rheumatology issues. option of OP follow up # Lacrimal gland enlargement # high hb - RBC count - low MCV ? justin - thalassemia vs polycythemia pt on ASA will do iron and def IX as MCV is low would need OP follow up for high HB/HCT follow up at this time HCT is high enough to warrant # Acute CVA seen by neurology # h/o Hyperkalemia, Monitor potassium # h/o Hypertension- monitor # h/o COPD, stable # being treated for Rhabdomyolysis - Patient Problems (1) Lesion of parotid gland Current Visit: Yes Status: Acute
--- NOTE | 2019-10-14 11:39 | Magnetic Resonance Report ---
NONENHANCED MR SCAN OF THE BRAIN: INDICATION / CLINICAL INFORMATION: MAIN: stroke slurred speech--right sided weakness. TECHNIQUE: Multiplanar, multisequence MR images of the brain obtained. COMPARISON: CT scan of the head from 10/13/2019 FINDINGS: BRAIN / INTRACRANIAL CONTENTS: Abnormal MRI scan Focal area of subacute infarction is seen along the ventral maryjo on the left side of midline extendin g slightly towards the right side. This infarction is more than 12 hours old (increased T2 signal int ensity) but less than 3 days old (low ADC values). In addition, chronic ischemic changes are also seen in the maryjo due to small vessel disease. In the gradient echo images, multiple punctate areas of susceptibility changes are seen in both cereb ral hemispheres, right cerebral hemisphere and in the maryjo. More than likely, these are due to chroni c microbleeds. Subtle chronic ischemic changes are seen in the cerebral hemispheres In the cerebral hemispheres, confluent patchy white matter hyperintensities seen in both cerebral hem ispheres almost symmetric ([place] 3). High convexity cortical sulci are relatively well preserved. T hese findings suggest subcortical arteriosclerosis. Chronic lacunae are seen in the basal ganglia more on the right side. CRANIOCERVICAL JUNCTION: No significant abnormality. VASCULAR FLOW-VOIDS: No significant abnormality. ORBITS: As seen in the CT images, both lacrimal glands are markedly dilated. In addition, right super ior rectus muscle is also markedly enlarged. SINUSES / MASTOIDS: Mucosal thickening is seen in the mastoid air cells bilaterally. ADDITIONAL FINDINGS: Bilateral parotid gland lesions are seen. IMPRESSION: Subacute infarction in the ventral maryjo on the left side of midline Signer Name: Michelle Moreno MD Signed: 10/14/2019 11:35 AM Workstation Name: [id number]
[2019-10-14] MEDS: ASPIRIN 325 MG TAB PO SCH (11:45)
[2019-10-14] MEDS: ENOXAPARIN 40 MG/0.4 ML INJ SUB-Q SCH (11:49)
[2019-10-14] MEDS: SODIUM CHLORIDE 0.9% 1000 ML 1,000 ML IV SCH (11:56)
--- NOTE | 2019-10-14 12:35 | Progress Note ---
Subjective Date of service: 10/14/19 Interval history: suspect micro infarct of the left hemisphere could bwe related to polycythymia- HMCt suspect there is temporal lobe atrophy- susct due to Deg disease full note dictated PUI?: No Objective - Vital Sign Vital Signs - 12hr 10/14/19 10/14/19 10/14/19 00:40 01:00 04:00 Temperature 98.8 F Pulse Rate 63 74 Respiratory 17 18 Rate Blood Pressure Blood Pressure 146/89 [Right] O2 Sat by Pulse 100 Oximetry 10/14/19 10/14/19 10/14/19 04:19 07:58 08:48 Temperature 98.4 F 97.4 F L Pulse Rate 74 72 Respiratory 16 18 Rate Blood Pressure 156/102 127/88 Blood Pressure [Right] O2 Sat by Pulse 94 96 100 Oximetry - Laboratory Findings CBC and BMP: 10/13/19 14:46 10/13/19 14:46 Abnormal Lab Findings: Abnormal Labs 10/13/19 10/13/19 10/13/19 14:46 14:46 14:46 RBC 7.16 H Hgb 17.3 H Hct 53.9 H MCV 75 L MCH 24 L RDW 15.4 H APTT 45.8 H Potassium 5.3 H Chloride 97.3 L Carbon Dioxide 20 L BUN 27 H Calcium 10.3 H Ammonia Total Creatine Kinase 10/13/19 10/13/19 10/14/19 14:46 14:46 01:38 RBC Hgb Hct MCV MCH RDW APTT Potassium Chloride Carbon Dioxide BUN Calcium Ammonia > 10.0 L Total Creatine Kinase 520 H 351 H 10/14/19 07:07 RBC Hgb Hct MCV MCH RDW APTT Potassium Chloride Carbon Dioxide BUN Calcium Ammonia Total Creatine Kinase 291 H
--- NOTE | 2019-10-14 13:47 | Consultation ---
HISTORY OF PRESENT ILLNESS: This is a 64-year-old black male that presents to [facility] with an alteration in area of strength. His granddaughter found him on the floor, he was weak, confused, had difficulty with speech for 2-3 days. He presented with a history of CVA with right-sided weakness. He was initially assessed in the Emergency Room, blood pressure was 170/100. His glucose is 157. His potassium was 5.3. He was noted to have a very high hematocrit of 53.9 and rbc's were elevated at 7.16, which is also elevated. The patient was previously assessed initially subsequently and was felt to have had a stroke. I had reviewed his MRI scan of the brain and he has rather marked atrophy noted bilaterally and enlargement of the ventricular system as well as temporal atrophy noted bilaterally. There is a single punctate stroke in the left hemisphere, which is very ovoid in appearance noted on the superior images in the left parietal lobe. This was compared to the CT scan, and in reviewing the CT scan, I do not see any image on the CT, which represents the same finding to check whether this may in fact be some artifact. I did note again the bitemporal atrophy, which is slightly more than one would expect for his stated age and I would consider this to be abnormal for his stated age. I would comment on that issue. CTA shows no significant abnormalities. No area of any occlusive disease is present. PHYSICAL EXAMINATION: GENERAL: Elderly black male. VITAL SIGNS: Blood pressure 143/80, pulse rate 86. NEUROLOGIC: Cranial nerves II through XII are intact. Motor and sensory examination is unremarkable. The patient is very poorly responsive, has difficulty with slurred speech, does not react to the nurse very well. She is in the room and actually speaking to him as I did my examination. Has limited movement throughout. He is fully alert, follows only simple commands, disoriented to person, place, and time. IMPRESSION: There is a small punctate stroke in the left hemisphere. I am in agreement with the radiologist's interpretation of the MRI. I noticed the same finding. He does not have any abnormality on the CTA that has congruence with this however. Of interest is the fact he does have an elevated hematocrit. He may have polycythemia. He has been seen by the utility division project manager at present time. Obviously, this may represent infarct seen with polycythemia. This should be considered as a risk factor. I would also suspect he has underlying dementia given the degree of bitemporal atrophy. This certainly given his age is an abnormality, which I would comment on in describing the nature of his cortical logan matter in the temporal lobe. JOB# [id number] LINDY/CHARLENE
[2019-10-15] MEDS: SODIUM CHLORIDE 0.9% 1000 ML 1,000 ML IV SCH ×3 (01:17→20:15)
[2019-10-15 05:52] LABS: Hematocrit 46.6 % (35.5-45.6); Hemoglobin 14.9 gm/dl (11.8-15.2); Mean Corpuscular HGB Conc 32 % (32-34); Mean Corpuscular Volume 75 fl (84-94); Platelet Count 148 K/mm3 (140-440); Red Blood Count 6.18 M/mm3 (3.65-5.03); Red Cell Distribution Width 15.4 % (13.2-15.2)
[2019-10-15 06:13] LABS: BUN/Creatinine Ratio 36; Blood Urea Nitrogen 36 mg/dL (9-20); Calcium 9.1 mg/dL (8.4-10.2); Hemolysis Index 5; Iron 104 ug/dL (49-181); LDL Cholesterol,Direct 142 mg/dL (50-130); Total Iron Binding Capacity 214 mcg/dL (250-450)
[2019-10-15 06:26] LABS: Chol/HDL Ratio 4.56 %; HDL Cholesterol 46 mg/dL (40-59)
[2019-10-15] MEDS: ASPIRIN 325 MG TAB PO SCH (10:09)
[2019-10-15] MEDS: ENOXAPARIN 40 MG/0.4 ML INJ SUB-Q SCH (10:09)
--- NOTE | 2019-10-15 11:39 | Progress Note ---
Assessment and Plan Assessment and plan: Patient is a 64 yo man with a history of hypertension, OA with chronic hip pains, COPD, chronic right eye redness with inferior right eyelid eversion under care of outpatient Operations Chief in [place] and prior CVA with right hemiparesis but walks with a cane who presented to [facility] ED with slurred speech and being found on the floor for 2 days. * CTA neck IMPRESSION: 1. No significant abnormality. Multiple parotid lesions * CTA head IMPRESSION: [place] and middle cerebral arteries are norm al. Additional findings: 1. Enlarged lacrimal glands bilaterally symmetrically; approximately 15 mm sized lesion in the left posterior lacrimal gland with decreased enhancement 2. Bilateral parotid lesions 3 cm sized lesion on the left side; Parotid and lacrimal gland lesions could be benign mixed tumors. However, in a focal nonenhancing area is worrisome for lymphoma. 3. 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 Right superior ophthalmic vein is markedly dilated * XRAY pelvis IMPRESSION: 1. No acute findings. If clinical suspicion for radiographically occult fracture is high, additional views or CT should be considered * 2v CXR IMPRESSION: 1. Hyperinflated lungs but no acute pulmonary or pleural findings. * CT head Impression: IMPRESSION: 1. There is continued extensive microvascular angiopathy as detailed above without CT evidence of acute intracranial hemorrhage 2. There is continued at notable enlargement of the lacrimal glands bilaterally. Additionally, a 2.2 similar rounded lesion is now seen along the anterior, superior margin of the left parotid gland, also described above. * TTE estimated EF 55%, grade 1 Diastolic dysfunction, negative bubble study Acute CVA confirmed by MRI Left maryjo: treat with ASA/statin Parotid lesions: Suspicious for lymphoma, consulted Oncology, input noted, need ENT (none take consult here) outpatient Hyperkalemia, give Kayexalate: Monitor potassium Hypertension: Start IV hydralazine as needed for blood pressure control COPD, stable Rhabdomyolysis: Start IV fluids, monitor CK Right superior ophthalmic vein is markedly dilated, ?cerebral malformation: Neurology consulted DVT prophylaxis: sq lovenox Polycythemia with Hgb 17.3, HCT 53.9: treat with IVF 10/15/19: d/w daughter yesterday, she is hopeful for rehab, PT recommends acute rehab. History Interval history: Patient was seen and examined. Follow-up on current diagnosis of CVA. Overnight uneventful as no events directly reported to me. Patient is dysarthric. Imaging, nursing note, chart, labs and old chart reviewed. PUI?: No Hospitalist Physical - Physical exam Narrative exam: Gen: thin frial NAD, Awake, Alert, dysarthric HEENT: NCAT, EOMI, right lower eye lid everted with red eyes, OP Clear Neck: supple, no adenopathy, no thyromegaly, no JVD CVS/Heart: RRR, normal S1S2, pulses present bilaterally Chest/Lungs: CTA B, Symmetrical chest expansion, good air entry bilaterally GI/Abdomen: soft, NTND, good bowel sounds, no guarding or rebound /Bladder: no suprapubic tenderness, no CVA or paraspinal tenderness Extermity/Skin: no c/c/e, no obvious rash MSK: FROM x 3, RHP Neuro: CN 2-12 grossly intact except speech, old RHP, no new focal deficits, expressive aphrasia Psych: calm - Constitutional Vitals: Temp Pulse Resp BP Pulse Ox 97.2 F L 61 18 129/86 96 10/15/19 07:33 10/15/19 07:33 10/15/19 07:33 10/15/19 07:33 10/15/19 07:33 Results - Labs CBC & Chem 7: 10/15/19 05:20 10/15/19 05:20 Labs: Laboratory Last Values WBC 4.6 K/mm3 (4.5-11.0) 10/15/19 05:20 RBC 6.18 M/mm3 (3.65-5.03) H 10/15/19 05:20 Hgb 14.9 gm/dl (11.8-15.2) 10/15/19 05:20 Hct 46.6 % (35.5-45.6) H D 10/15/19 05:20 MCV 75 fl (84-94) L 10/15/19 05:20 MCH 24 pg (28-32) L 10/15/19 05:20 MCHC 32 % (32-34) 10/15/19 05:20 RDW 15.4 % (13.2-15.2) H 10/15/19 05:20 Plt Count 148 K/mm3 (140-440) 10/15/19 05:20 Lymph % (Auto) Machine Umbrella Tipper 10/13/19 14:46 [place] % (Auto) Machine Umbrella Tipper 10/13/19 14:46 Eos % (Auto) Machine Umbrella Tipper 10/13/19 14:46 Baso % (Auto) Machine Umbrella Tipper 10/13/19 14:46 Lymph # Machine Umbrella Tipper 10/13/19 14:46 [place] # Machine Umbrella Tipper 10/13/19 14:46 Eos # Machine Umbrella Tipper 10/13/19 14:46 Baso # Machine Umbrella Tipper 10/13/19 14:46 Seg Neutrophils % Machine Umbrella Tipper 10/13/19 14:46 Seg Neutrophils # Machine Umbrella Tipper 10/13/19 14:46 PT 12.7 Sec. (12.2-14.9) 10/13/19 14:46 INR 0.94 (0.87-1.13) 10/13/19 14:46 APTT 45.8 Sec. (24.2-36.6) H 10/13/19 14:46 Thrombin Time 15.8 Sec. (15.1-19.6) 10/13/19 14:46 Sodium 142 mmol/L (137-145) 10/15/19 05:20 Potassium 4.2 mmol/L (3.6-5.0) D 10/15/19 05:20 Chloride 104.3 mmol/L (98-107) 10/15/19 05:20 Carbon Dioxide 20 mmol/L (22-30) L 10/15/19 05:20 Anion Gap 22 mmol/L 10/15/19 05:20 BUN 36 mg/dL (9-20) H 10/15/19 05:20 Creatinine 1.0 mg/dL (0.8-1.5) 10/15/19 05:20 Estimated GFR > 60 ml/min 10/15/19 05:20 BUN/Creatinine Ratio 36 % 10/15/19 05:20 Glucose 78 mg/dL (75-100) 10/15/19 05:20 Calcium 9.1 mg/dL (8.4-10.2) 10/15/19 05:20 Iron 104 ug/dL (49-181) 10/15/19 05:20 TIBC 214 mcg/dL (250-450) L 10/15/19 05:20 Ferritin 347.6 ng/mL (13.0-400.0) 10/15/19 05:20 Ammonia > 10.0 umol/L (25-60) L 10/13/19 14:46 Total Creatine Kinase 291 units/L (55-170) H 10/14/19 07:07 CK-MB (CK-2) 3.0 ng/mL (0.0-4.0) 10/14/19 07:07 CK-MB (CK-2) Rel Index 1.0 (0-4) 10/14/19 07:07 Troponin T < 0.010 ng/mL (0.00-0.029) 10/14/19 07:07 Triglycerides 159 mg/dL (2-149) H 10/15/19 05:20 Cholesterol 210 mg/dL (50-199) H 10/15/19 05:20 LDL Cholesterol Direct 142 mg/dL (50-130) H 10/15/19 05:20 HDL Cholesterol 46 mg/dL (40-59) 10/15/19 05:20 Cholesterol/HDL Ratio 4.56 % 10/15/19 05:20 Vitamin B12 895.8 pg/mL (211-911) 10/15/19 05:20 Folate 15.22 ng/mL (7.3-26.0) 10/15/19 05:20 Adams/IV: Voiding Method Urinal IV Catheter Type [Right Peripheral IV Antecubital] Active Medications - Current Medications Current Medications: Generic Name Dose Route Start Last Admin Trade Name Freq PRN Reason Stop Dose Admin Acetaminophen 650 mg 10/14/19 00:34 Tylenol PO Q4H PRN Pain, Mild (1-3) Acetaminophen 650 mg 10/14/19 00:34 Tylenol IA Q4H PRN Pain, Mild (1-3) Aspirin 325 mg 10/14/19 10:00 10/15/19 10:09 Aspirin PO 325 mg QDAY FEDERICA Administration Atorvastatin Calcium 40 mg 10/14/19 22:00 10/14/19 21:05 Lipitor PO Not Given QHS FEDERICA Bisacodyl 10 mg 10/14/19 00:34 Dulcolax IA QDAY PRN Constipation Enoxaparin Sodium 40 mg 10/14/19 10:00 10/15/19 10:09 Enoxaparin SUB-Q 40 mg QDAY FEDERICA Administration Hydralazine HCl 5 mg 10/14/19 00:37 Apresoline IV Q6H PRN Hypertension Sodium Chloride 1,000 mls @ 100 mls/hr 10/14/19 00:45 10/15/19 10:10 Nacl 0.9% 1000 Ml IV 100 mls/hr DIRECT FEDERICA Administration Magnesium Hydroxide 30 ml 10/14/19 00:34 Milk Of Magnesia PO Q4H PRN Constipation Metoclopramide HCl 10 mg 10/14/19 00:34 Reglan PO Q6H PRN Nausea And Vomiting Ondansetron HCl 4 mg 10/14/19 00:34 Zofran IV Q8H PRN Nausea And Vomiting Sodium Chloride 10 ml 10/14/19 00:34 Sodium Chloride Flush Syringe 10 Ml IV PRN PRN LINE FLUSH Nutrition/Malnutrition Assess - Dietary Evaluation Nutrition/Malnutrition Findings: Nutrition Notes Start: 10/14/19 08:49 Freq: Status: Active Protocol: Document 10/14/19 08:49 LP (Rec: 10/14/19 08:54 LP [email or web address]) Nutrition Notes 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 Pt NPO and INDUSTRIAL ORGANIZATION MANAGER consulted. Burn Absent Trauma Absent Difficulty In Swallowing,Chewing Current % PO Negligible Minimum of two criteria No physical signs of malnutrition #1 Nutrition Diagnosis Inadequate oral intake Etiology CVA As Evidenced by Signs and Symptoms Pt NPO and waint for INDUSTRIAL ORGANIZATION MANAGER Is patient on ventilator? No Is Patient Ambulatory and/or Out of Bed Yes REE-([facility]-ambulatory/OOB) [ 1844.609 NUTR.MSJOOB] Calculation Used for Recommendations [facility] Additional Notes Protein needs are 68-82g (1-1. 2g/kg) Fluid needs are 1ml/kcal Nutrition Intervention Change Diet Order: Advance diet to cardiac as feasible or per INDUSTRIAL ORGANIZATION MANAGER Goal #1 Advance diet as feasible Anticipated Discharge Needs: Unable to determine at this time Follow-Up By: 10/17/19 Additional Comments Follow for intakes
[2019-10-16 05:29] LABS: Hematocrit 43.4 % (35.5-45.6); Hemoglobin 13.7 gm/dl (11.8-15.2); Mean Corpuscular HGB Conc 32 % (32-34); Mean Corpuscular Volume 76 fl (84-94); Platelet Count 139 K/mm3 (140-440); Red Blood Count 5.75 M/mm3 (3.65-5.03); Red Cell Distribution Width 15.7 % (13.2-15.2)
[2019-10-16 06:23] LABS: BUN/Creatinine Ratio 27; Blood Urea Nitrogen 24 mg/dL (9-20); Calcium 8.6 mg/dL (8.4-10.2); Hemolysis Index 6
[2019-10-16] MEDS: SODIUM CHLORIDE 0.9% 1000 ML 1,000 ML IV SCH (06:43)
[2019-10-16] MEDS: ASPIRIN 325 MG TAB PO SCH (09:37)
[2019-10-16] MEDS: ENOXAPARIN 40 MG/0.4 ML INJ SUB-Q SCH (09:38)
--- NOTE | 2019-10-16 10:01 | Progress Note ---
Assessment and Plan Assessment and plan: Patient is a 64 yo man with a history of hypertension, OA with chronic hip pains, COPD, chronic right eye redness with inferior right eyelid eversion under care of outpatient Preflight Inspector in [place] and prior CVA with right hemiparesis but walks with a cane who presented to [facility] ED with slurred speech and being found on the floor for 2 days. * CTA neck IMPRESSION: 1. No significant abnormality. Multiple parotid lesions * CTA head IMPRESSION: [place] and middle cerebral arteries are norm al. Additional findings: 1. Enlarged lacrimal glands bilaterally symmetrically; approximately 15 mm sized lesion in the left posterior lacrimal gland with decreased enhancement 2. Bilateral parotid lesions 3 cm sized lesion on the left side; Parotid and lacrimal gland lesions could be benign mixed tumors. However, in a focal nonenhancing area is worrisome for lymphoma. 3. 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 Right superior ophthalmic vein is markedly dilated * XRAY pelvis IMPRESSION: 1. No acute findings. If clinical suspicion for radiographically occult fracture is high, additional views or CT should be considered * 2v CXR IMPRESSION: 1. Hyperinflated lungs but no acute pulmonary or pleural findings. * CT head Impression: IMPRESSION: 1. There is continued extensive microvascular angiopathy as detailed above without CT evidence of acute intracranial hemorrhage 2. There is continued at notable enlargement of the lacrimal glands bilaterally. Additionally, a 2.2 similar rounded lesion is now seen along the anterior, superior margin of the left parotid gland, also described above. * TTE estimated EF 55%, grade 1 Diastolic dysfunction, negative bubble study Acute CVA confirmed by MRI Left maryjo: treat with ASA/statin Parotid lesions: Suspicious for lymphoma, consulted Oncology, input noted, need ENT (none take consult here) outpatient Hyperkalemia, give Kayexalate: Monitor potassium Hypertension: Start IV hydralazine as needed for blood pressure control COPD, stable Rhabdomyolysis: Start IV fluids, monitor CK Right superior ophthalmic vein is markedly dilated, ?cerebral malformation: Neurology consulted DVT prophylaxis: stopped sq lovenox due to drop in plt Polycythemia with Hgb 17.3, HCT 53.9: treat with IVF 10/15/19: d/w daughter yesterday, she is hopeful for rehab, PT recommends acute rehab. 10/16/19: stopped lovenox due to drop in plt, repeat cbc in AM, trouble with thin liquids, await speech evaluation, await placement History Interval history: Patient was seen and examined. Follow-up on current diagnosis of CVA. Overnight uneventful as no events directly reported to me. Patient is dysarthric. Imaging, nursing note, chart, labs and old chart reviewed. PUI?: No Hospitalist Physical - Physical exam Narrative exam: Gen: thin frial NAD, Awake, Alert, dysarthric HEENT: NCAT, EOMI, right lower eye lid everted with red eyes, OP Clear Neck: supple, no adenopathy, no thyromegaly, no JVD CVS/Heart: RRR, normal S1S2, pulses present bilaterally Chest/Lungs: CTA B, Symmetrical chest expansion, good air entry bilaterally GI/Abdomen: soft, NTND, good bowel sounds, no guarding or rebound /Bladder: no suprapubic tenderness, no CVA or paraspinal tenderness Extermity/Skin: no c/c/e, no obvious rash MSK: FROM x 3, RHP Neuro: CN 2-12 grossly intact except speech, old RHP, no new focal deficits, expressive aphrasia Psych: calm - Constitutional Vitals: Temp Pulse Resp BP Pulse Ox 98.2 F 62 16 156/87 95 10/16/19 05:00 10/16/19 05:00 10/16/19 05:00 10/16/19 05:00 10/16/19 05:00 Results - Labs CBC & Chem 7: 10/16/19 03:32 10/16/19 03:32 Labs: Laboratory Last Values WBC 4.6 K/mm3 (4.5-11.0) 10/16/19 03:32 RBC 5.75 M/mm3 (3.65-5.03) H 10/16/19 03:32 Hgb 13.7 gm/dl (11.8-15.2) 10/16/19 03:32 Hct 43.4 % (35.5-45.6) 10/16/19 03:32 MCV 76 fl (84-94) L 10/16/19 03:32 MCH 24 pg (28-32) L 10/16/19 03:32 MCHC 32 % (32-34) 10/16/19 03:32 RDW 15.7 % (13.2-15.2) H 10/16/19 03:32 Plt Count 139 K/mm3 (140-440) L 10/16/19 03:32 Lymph % (Auto) Grain Spouter 10/13/19 14:46 Carbon % (Auto) Grain Spouter 10/13/19 14:46 Eos % (Auto) Grain Spouter 10/13/19 14:46 Baso % (Auto) Grain Spouter 10/13/19 14:46 Lymph # Grain Spouter 10/13/19 14:46 Carbon # Grain Spouter 10/13/19 14:46 Eos # Grain Spouter 10/13/19 14:46 Baso # Grain Spouter 10/13/19 14:46 Seg Neutrophils % Grain Spouter 10/13/19 14:46 Seg Neutrophils # Grain Spouter 10/13/19 14:46 PT 12.7 Sec. (12.2-14.9) 10/13/19 14:46 INR 0.94 (0.87-1.13) 10/13/19 14:46 APTT 45.8 Sec. (24.2-36.6) H 10/13/19 14:46 Thrombin Time 15.8 Sec. (15.1-19.6) 10/13/19 14:46 Sodium 142 mmol/L (137-145) 10/16/19 03:32 Potassium 4.0 mmol/L (3.6-5.0) 10/16/19 03:32 Chloride 108.3 mmol/L (98-107) H 10/16/19 03:32 Carbon Dioxide 25 mmol/L (22-30) 10/16/19 03:32 Anion Gap 13 mmol/L 10/16/19 03:32 BUN 24 mg/dL (9-20) H 10/16/19 03:32 Creatinine 0.9 mg/dL (0.8-1.5) 10/16/19 03:32 Estimated GFR > 60 ml/min 10/16/19 03:32 BUN/Creatinine Ratio 27 % 10/16/19 03:32 Glucose 91 mg/dL (75-100) 10/16/19 03:32 Calcium 8.6 mg/dL (8.4-10.2) 10/16/19 03:32 Iron 104 ug/dL (49-181) 10/15/19 05:20 TIBC 214 mcg/dL (250-450) L 10/15/19 05:20 Ferritin 347.6 ng/mL (13.0-400.0) 10/15/19 05:20 Ammonia > 10.0 umol/L (25-60) L 10/13/19 14:46 Total Creatine Kinase 291 units/L (55-170) H 10/14/19 07:07 CK-MB (CK-2) 3.0 ng/mL (0.0-4.0) 10/14/19 07:07 CK-MB (CK-2) Rel Index 1.0 (0-4) 10/14/19 07:07 Troponin T < 0.010 ng/mL (0.00-0.029) 10/14/19 07:07 Triglycerides 159 mg/dL (2-149) H 10/15/19 05:20 Cholesterol 210 mg/dL (50-199) H 10/15/19 05:20 LDL Cholesterol Direct 142 mg/dL (50-130) H 10/15/19 05:20 HDL Cholesterol 46 mg/dL (40-59) 10/15/19 05:20 Cholesterol/HDL Ratio 4.56 % 10/15/19 05:20 Vitamin B12 895.8 pg/mL (211-911) 10/15/19 05:20 Folate 15.22 ng/mL (7.3-26.0) 10/15/19 05:20 Adams/IV: Voiding Method Condom Catheter IV Catheter Type [Right Peripheral IV Antecubital] Active Medications - Current Medications Current Medications: Generic Name Dose Route Start Last Admin Trade Name Freq PRN Reason Stop Dose Admin Acetaminophen 650 mg 10/14/19 00:34 Tylenol PO Q4H PRN Pain, Mild (1-3) Acetaminophen 650 mg 10/14/19 00:34 Tylenol WI Q4H PRN Pain, Mild (1-3) Aspirin 325 mg 10/14/19 10:00 10/16/19 09:37 Aspirin PO 325 mg QDAY FEDERICA Administration Atorvastatin Calcium 40 mg 10/14/19 22:00 10/15/19 22:11 Lipitor PO 40 mg QHS FEDERICA Administration Bisacodyl 10 mg 10/14/19 00:34 Dulcolax WI QDAY PRN Constipation Hydralazine HCl 5 mg 10/14/19 00:37 Apresoline IV Q6H PRN Hypertension Sodium Chloride 1,000 mls @ 100 mls/hr 10/14/19 00:45 10/16/19 06:43 Nacl 0.9% 1000 Ml IV 100 mls/hr DIRECT FEDERICA Administration Magnesium Hydroxide 30 ml 10/14/19 00:34 Milk Of Magnesia PO Q4H PRN Constipation Metoclopramide HCl 10 mg 10/14/19 00:34 Reglan PO Q6H PRN Nausea And Vomiting Ondansetron HCl 4 mg 10/14/19 00:34 Zofran IV Q8H PRN Nausea And Vomiting Sodium Chloride 10 ml 10/14/19 00:34 Sodium Chloride Flush Syringe 10 Ml IV PRN PRN LINE FLUSH Nutrition/Malnutrition Assess - Dietary Evaluation Nutrition/Malnutrition Findings: Nutrition Notes Start: 10/14/19 08:49 Freq: Status: Active Protocol: Document 10/14/19 08:49 LP (Rec: 10/14/19 08:54 LP [id number]) Nutrition Notes 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 Pt NPO and ENTERPRISE DATA ARCHITECT consulted. Burn Absent Trauma Absent Difficulty In Swallowing,Chewing Current % PO Negligible Minimum of two criteria No physical signs of malnutrition #1 Nutrition Diagnosis Inadequate oral intake Etiology CVA As Evidenced by Signs and Symptoms Pt NPO and waint for ENTERPRISE DATA ARCHITECT Is patient on ventilator? No Is Patient Ambulatory and/or Out of Bed Yes REE-([facility]-ambulatory/OOB) [ 1844.609 NUTR.MSJOOB] Calculation Used for Recommendations [facility] Additional Notes Protein needs are 68-82g (1-1. 2g/kg) Fluid needs are 1ml/kcal Nutrition Intervention Change Diet Order: Advance diet to cardiac as feasible or per ENTERPRISE DATA ARCHITECT Goal #1 Advance diet as feasible Anticipated Discharge Needs: Unable to determine at this time Follow-Up By: 10/17/19 Additional Comments Follow for intakes
--- NOTE | 2019-10-16 12:01 | Discharge Summary ---
Providers - Providers Date of Admission: 10/13/19 23:10 Date of discharge: 10/16/19 Attending physician: ADRIENNE ROBLES 10/13/19 17:33 Speech Therapy Evaluation and Treat [CONS] Stat Reason For Exam: Failed swallow study 10/14/19 Consult to Physician [CONS] Routine Comment: Consulting Provider: DEVAN LEE Physician Instructions: Reason For Exam: cva 10/14/19 00:34 Occupational Therapy Evaluate and Treat [CONS] Routine Comment: Reason For Exam: Neuro deficits Physical Therapy Evaluation and Treat [CONS] Routine Comment: Reason For Exam: Neuro deficits 10/14/19 01:54 Consult to Physician [CONS] Routine Comment: Consulting Provider: SHANDRA SMITH Physician Instructions: Reason For Exam: parotid lesions 10/14/19 13:13 Consult to Case Management [CONS] Routine Services Needed at Discharge: Internal Salesperson Notified:: NUCLEAR WASTE MANAGEMENT ENGINEER Additional Physician Instructions: SNF Placement as per family request: Please send out Darek. [facility] Condition: Stable Hospital course: Patient is a 64 yo man with a history of hypertension, OA with chronic hip pains, COPD, chronic right eye redness with inferior right eyelid eversion under care of outpatient Skein Spooler in [place] and prior CVA with right hemiparesis but walks with a cane who presented to [facility] ED with slurred speech and being found on the floor for 2 days. * CTA neck IMPRESSION: 1. No significant abnormality. Multiple parotid lesions * CTA head IMPRESSION: [place] and middle cerebral arteries are normal. Additional findings: 1. Enlarged lacrimal glands bilaterally symmetrically; approximately 15 mm sized lesion in the left posterior lacrimal gland with decreased enhancement 2. Bilateral parotid lesions 3 cm sized lesion on the left side; Parotid and lacrimal gland lesions could be benign mixed tumors. However, in a focal nonenhancing area is worrisome for lymphoma. 3. 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 Right superior ophthalmic vein is markedly dilated * XRAY pelvis IMPRESSION: 1. No acute findings. If clinical suspicion for radiographically occult fracture is high, additional views or CT should be considered * 2v CXR IMPRESSION: 1. Hyperinflated lungs but no acute pulmonary or pleural findings. * CT head Impression: IMPRESSION: 1. There is continued extensive microvascular angiopathy as detailed above without CT evidence of acute intracranial hemorrhage 2. There is continued at notable enlargement of the lacrimal glands bilaterally. Additionally, a 2.2 similar rounded lesion is now seen along the anterior, superior margin of the left parotid gland, also described above. * TTE estimated EF 55%, grade 1 Diastolic dysfunction, negative bubble study Acute CVA confirmed by MRI Left maryjo: treat with ASA/statin Parotid lesions: Suspicious for lymphoma, consulted Oncology, input noted, need ENT (none take consult here) outpatient Hyperkalemia, give Kayexalate: Monitor potassium Hypertension: Start IV hydralazine as needed for blood pressure control COPD, stable Rhabdomyolysis: Start IV fluids, monitor CK Right superior ophthalmic vein is markedly dilated, ?cerebral malformation: Neurology consulted DVT prophylaxis: stopped sq lovenox due to drop in plt Polycythemia with Hgb 17.3, HCT 53.9: treat with IVF 10/15/19: d/w daughter yesterday, she is hopeful for rehab, PT recommends acute rehab. 10/16/19: stopped lovenox due to drop in plt, repeat cbc in AM, trouble with thin liquids, await speech evaluation, await placement Disposition: [id number] IN REHAB FACILITY Time spent for discharge: 32 min Core Measure Documentation - Palliative Care Palliative Care/ Comfort Measures: Not Applicable - Core Measures Any of the following diagnoses?: stroke - VTE Discharge Requirements Deep Vein Thrombosis/Pulmonary Embolism Present on Admission: No Has pt received <5 days of overlap therapy or INR<2.0: No Anticoagulant overlap therapy prescribed at discharge: No Contraindication No Overlap Therapy order at DC: Not Indicated - Stroke Discharge Requirements Statin for LDL = or >70 mg/dl on DC: Yes Anticoag for atrial fib/atrial flutter: No Reason for no anticoag for AF/F on DC: Not Indicated Antithrombotic for ischemic stroke: Yes Exam - Physical Exam Narrative exam: Gen: thin frial NAD, Awake, Alert, dysarthric HEENT: NCAT, EOMI, right lower eye lid everted with red eyes, OP Clear Neck: supple, no adenopathy, no thyromegaly, no JVD CVS/Heart: RRR, normal S1S2, pulses present bilaterally Chest/Lungs: CTA B, Symmetrical chest expansion, good air entry bilaterally GI/Abdomen: soft, NTND, good bowel sounds, no guarding or rebound /Bladder: no suprapubic tenderness, no CVA or paraspinal tenderness Extermity/Skin: no c/c/e, no obvious rash MSK: FROM x 3, RHP Neuro: CN 2-12 grossly intact except speech, old RHP, no new focal deficits, expressive aphrasia Psych: calm - Constitutional Vitals: Temp Pulse Resp BP Pulse Ox 98.4 F 60 18 145/88 95 10/16/19 08:18 10/16/19 08:18 10/16/19 08:18 10/16/19 08:18 10/16/19 08:18 Plan Activity: up only with assistance, fall precautions Diet: low salt Follow up with: FREDDY LOCKHART MD [Primary Care Provider] - 3-5 Days Prescriptions: AtorvaSTATin [Lipitor] 40 mg PO QHS #30 tablet Aspirin 325 mg PO QDAY #30 tablet
[2019-10-17] MEDS: SODIUM CHLORIDE 0.9% 1000 ML 1,000 ML IV SCH (03:33)
[2019-10-17 08:36] VITALS: BP 162/88
[2019-10-17] MEDS: ASPIRIN 325 MG TAB PO SCH (10:05)
--- NOTE | 2019-10-17 12:53 | Event Note ---
Date: 10/17/19 Patient was discharged to acute rehab yesterday Plan of care will be managed by Dr. Witt
--- NOTE | 2019-10-17 17:48 | Discharge Summary ---
Providers - Providers Date of Admission: 10/13/19 23:10 Date of discharge: 10/16/19 Attending physician: CLARITZA CORREIA 10/13/19 17:33 Speech Therapy Evaluation and Treat [CONS] Stat Reason For Exam: Failed swallow study 10/14/19 Consult to Physician [CONS] Routine Comment: Consulting Provider: DEVAN LEE Physician Instructions: Reason For Exam: cva 10/14/19 00:34 Occupational Therapy Evaluate and Treat [CONS] Routine Comment: Reason For Exam: Neuro deficits Physical Therapy Evaluation and Treat [CONS] Routine Comment: Reason For Exam: Neuro deficits 10/14/19 01:54 Consult to Physician [CONS] Routine Comment: Consulting Provider: SHANDRA SMITH Physician Instructions: Reason For Exam: parotid lesions 10/14/19 13:13 Consult to Case Management [CONS] Routine Services Needed at Discharge: Vat House Laborer Notified:: HYDROLOGY TEACHER Additional Physician Instructions: SNF Placement as per family request: Please send out Darek. [facility] Condition: Stable Hospital course: Patient is a 64 yo man with a history of hypertension, OA with chronic hip pains, COPD, chronic right eye redness with inferior right eyelid eversion under care of outpatient Online Affiliate Marketing Manager in [place] and prior CVA with right hemiparesis but walks with a cane who presented to [facility] ED with slurred speech and being found on the floor for 2 days. * CTA neck IMPRESSION: 1. No significant abnormality. Multiple parotid lesions * CTA head IMPRESSION: [place] of Gaming and middle cerebral arteries are normal. Additional findings: 1. Enlarged lacrimal glands bilaterally symmetrically; approximately 15 mm sized lesion in the left posterior lacrimal gland with decreased enhancement 2. Bilateral parotid lesions 3 cm sized lesion on the left side; Parotid and lacrimal gland lesions could be benign mixed tumors. However, in a focal nonenhancing area is worrisome for lymphoma. 3. 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 Right superior ophthalmic vein is markedly dilated * XRAY pelvis IMPRESSION: 1. No acute findings. If clinical suspicion for radiographically occult fracture is high, additional views or CT should be considered * 2v CXR IMPRESSION: 1. Hyperinflated lungs but no acute pulmonary or pleural findings. * CT head Impression: IMPRESSION: 1. There is continued extensive microvascular angiopathy as detailed above without CT evidence of acute intracranial hemorrhage 2. There is continued at notable enlargement of the lacrimal glands bilaterally. Additionally, a 2.2 similar rounded lesion is now seen along the anterior, superior margin of the left parotid gland, also described above. * TTE estimated EF 55%, grade 1 Diastolic dysfunction, negative bubble study Acute CVA confirmed by MRI Left maryjo: treat with ASA/statin Parotid lesions: Suspicious for lymphoma, consulted Oncology, input noted, need ENT (none take consult here) outpatient Hyperkalemia, give Kayexalate: Monitor potassium Hypertension: Start IV hydralazine as needed for blood pressure control COPD, stable Rhabdomyolysis: Start IV fluids, monitor CK Right superior ophthalmic vein is markedly dilated, ?cerebral malformation: Neurology consulted DVT prophylaxis: stopped sq lovenox due to drop in plt Polycythemia with Hgb 17.3, HCT 53.9: treat with IVF Disposition: [id number] IN REHAB FACILITY Time spent for discharge: 31 min Core Measure Documentation - Palliative Care Palliative Care/ Comfort Measures: Not Applicable - Core Measures Any of the following diagnoses?: stroke - VTE Discharge Requirements Deep Vein Thrombosis/Pulmonary Embolism Present on Admission: No Has pt received <5 days of overlap therapy or INR<2.0: No Anticoagulant overlap therapy prescribed at discharge: No Contraindication No Overlap Therapy order at DC: Not Indicated - Stroke Discharge Requirements Statin for LDL = or >70 mg/dl on DC: Yes Anticoag for atrial fib/atrial flutter: Not Applicable Reason for no anticoag for AF/F on DC: Not Indicated Antithrombotic for ischemic stroke: Yes Exam - Physical Exam Narrative exam: see same day of discharge progress note - Constitutional Vitals: Temp Pulse Resp BP Pulse Ox 98.2 F 60 18 162/88 98 10/17/19 08:04 10/17/19 08:04 10/17/19 08:04 10/17/19 08:04 10/17/19 08:04 Plan Follow up with: FREDDY LOCKHART MD [Primary Care Provider] - 3-5 Days Prescriptions: AtorvaSTATin [Lipitor] 40 mg PO QHS #30 tablet Aspirin 325 mg PO QDAY #30 tablet
== END 2019-10-17 12:00 | DRG 65 ==
LOC: ED 13:41 → 4A 23:10
PROVIDERS: ADMIT Internal Medicine; ATTEND Internal Medicine
DX: I63.9 Cerebral infarction, unspecified (principal); M62.82 Rhabdomyolysis; I69.351 Hemiplegia and hemiparesis following cerebral infarction affecting right dominant side; E87.5 Hyperkalemia; J44.9 Chronic obstructive pulmonary disease, unspecified; D75.1 Secondary polycythemia; I10 Essential (primary) hypertension; M19.90 Unspecified osteoarthritis, unspecified site; G89.29 Other chronic pain; E21.0 Primary hyperparathyroidism; M25.552 Pain in left hip; M25.551 Pain in right hip; Z82.49 Family history of ischemic heart disease and other diseases of the circulatory system; Z91.81 History of falling
CPT/HCPCS: 36415; 70450; 70496; 70498; 70551; 72170; 80048; 80061; 82140; 82550; 82553; 82607; 82728; 82747; 83550; 84484; 85025; 85027; 85610; 85670; 85730; 93005; 93010; 93306; G0378; A9270-GY; J0360; J1650; J1940; J7030; Q9967

== ENCOUNTER 2019-10-17 11:33 | Inpatient (IN) | payer MEDICARE ==
[2019-10-17] MEDS ORDERED: ACETAMINOPHEN 325 MG TAB PO PRN (13:11)
[2019-10-17] MEDS ORDERED: ONDANSETRON 4 MG ODT TAB PO PRN (13:11)
[2019-10-17] MEDS ORDERED: POLYETHYLENE GLYCOL 3350 17 GM POWDER PO PRN (13:11)
[2019-10-17] MEDS ORDERED: ALBUTEROL 2.5 MG/3 ML NEBU IH PRN (13:11)
[2019-10-17] MEDS ORDERED: LISINOPRIL 5 MG TAB PO SCH (14:00)
--- NOTE | 2019-10-17 14:33 | History and Physical Report ---
History of Present Illness Date: 10/17/19 Date of admission: 10/17/19 13:13 Chief Complaint: CVA with right hemiparesis History of present illness: Patient was found down on the floor for approximately 2 days and was brought to the ER. He had slurred speech along with right-sided weakness. CT head showed no acute changes but did show chronic infarcts as well as notable enlargements of the lacrimal glands and parotid gland. MRI brain showed subacute infarct in the maryjo. Echocardiogram showed mild left ventricular diastolic dysfunction and an EF of 55%. CTA neck showed no acute abnormalities but did notate the parotid gland abnormalities. CTA head also noted the enlarged lacrimal glands, bilateral parotid lesions with the largest on the left, incidental development of venous anomaly on the left inferior frontal lobe, and a right superior ophthalmic vein dilation. Otherwise [place] of [place] and MCA were normal. Radiologist opined the lesions in the parotid and lacrimal glands could be benign however could also be worrisome for lymphoma. Pelvic x-ray showed mild degenerative changes but no acute fracture. Heme-onc consult was obtained and he opined that the enlarged lacrimal gland and parotid glands could also be due to a rheumatologic issue. At any rate and ENT follow-up as an outpatient would be needed for further diagnostic biopsies. He also evaluated the patient for elevated hemoglobin hematocrit. Iron was given and the patient was also referred for outpatient follow-up. Neurology was also consulted and agreed with the findings above however also mentioned that the bitemporal atrophy could point to a level of dementia in the patient. Patient was start on secondary stroke prevention. Hyperkalemia was treated with Kayexalate and did resolve. Patient was given IV fluids for rhabdomyolysis and total CK was still elevated at 291 at last check. Platelets consistently decreased during his admission and Lovenox was held due to platelets of 139. At this point the patient continues to be high risk for further complications including bleeding risk, recurrent stroke, unknown lacrimal and parotid gland disease, venous malformation and elevated CK. Will need to monitor the patient closely along with labs and make adjustments accordingly. Patient also high risk due to not being on any blood pressure medication at the time of discharge with ongoing blood pressure issues and a total of 3 blood pressure medications prior to admission. Patient did have a previous CVA with residual right-sided weakness but was modified independent for ADLs and ambulation utilizing a cane. Patient has a past history of smoking and alcohol use however has not done either in quite some time. He does have osteoarthritis of the hip which does cause him pain from time to time. Was able to look through the patient's medications and to discuss his previous medical issues which include stroke, hypertension, COPD and glaucoma. Apparently his hypertension was fairly advanced as he was on losartan 25 mg daily Norvasc 5 mg daily and clonidine 0.2 mg daily. He was also taking Symbicort 160/45 daily (which we will substitute for available medications per our formulary) and montelukast. For his glaucoma he was taking latanoprost which we have restarted. Based on his current blood pressure we will start him off on a lower dose of losartan and adjust from there. In total 48 minutes was invested in reviewing the patient's medical records from his past 2 admissions and those issues that are relevant are notated above. This was done on the day prior to admission to acute rehab. After the patient was medically stabilized they were transferred for further rehabilitation. All available medical records have been reviewed. Plan of care was discussed with patient and family. Past History Past Medical History: arthritis, COPD, hypertension, stroke, other (Glaucoma) Past Surgical History: cataract removal, Other (Polypectomy) Social history: Lives alone, full code. denies: smoking, alcohol abuse, prescription drug abuse, IV drug use Family history: cancer, diabetes, hypertension, stroke Medications and Allergies Allergies Allergy/AdvReac Type Severity Reaction Status Date / Time No Known Allergies Allergy Verified 10/13/19 23:12 Home Medications Medication Instructions Recorded Confirmed Last Taken Type Albuterol Sulfate [Proair 90 mcg IH Q4HR PRN #2 aer.pow.ba 08/19/19 10/17/19 Unknown Rx Respiclick] Polyvinyl Alcohol [Artificial 15 ml OP Q2HR #1 bottle 08/19/19 10/17/19 Unknown Rx Tears] Acetaminophen [Acetaminophen 325 mg NJ Q6H PRN #15 supp.rect 10/16/19 10/17/19 Unknown Rx SUPPOS] Acetaminophen [Acetaminophen TAB] 325 mg PO Q4H PRN #15 tablet 10/16/19 10/17/19 Unknown Rx Aspirin 325 mg PO QDAY #30 tablet 10/16/19 10/17/19 Unknown Rx AtorvaSTATin [Lipitor] 40 mg PO QHS #30 tablet 10/16/19 10/17/19 Unknown Rx Metoclopramide [Reglan TAB] 10 mg PO Q6H PRN #15 tablet 10/16/19 10/17/19 Unknown Rx Active Meds: Active Medications Acetaminophen (Tylenol) 650 mg PO Q6H PRN PRN Reason: Non Cardiac Pain or Temp>100.5 Albuterol (Proventil) 2.5 mg IH Q4HRT PRN PRN Reason: Shortness Of Breath Aspirin (Ecotrin) 325 mg PO QDAY [place] Atorvastatin Calcium (Lipitor) 40 mg PO QHS FEDERICA Bisacodyl (Dulcolax) 10 mg NJ QDAY PRN PRN Reason: Constipation Enoxaparin Sodium (Enoxaparin) 40 mg SUB-Q QDAY FEDERICA Hydralazine HCl (Apresoline) 10 mg IV Q4HR PRN PRN Reason: HTN SBP>160 Ondansetron HCl (Zofran Odt) 4 mg PO Q8H PRN PRN Reason: Nausea And Vomiting Polyethylene Glycol (Miralax 3350) 17 gm PO QDAY PRN PRN Reason: Constipation Review of Systems All systems: negative (ROS negative for 12 systems except as noted below with pertinent positives and negatives.) Eyes: bilateral: other (lacrimal gland enlarged) Ears, nose, mouth and throat: dysphagia, other (Poor dentition) Cardiovascular: no palpitations, no rapid/irregular heart beat, no edema Respiratory: no cough, no shortness of breath, no wheezing Gastrointestinal: no nausea, no vomiting, no diarrhea, no constipation Genitourinary Male: no dysuria Musculoskeletal: arthritis, no shooting arm pain, no arm numbness/tingling, no low back pain, no shooting leg pain, no leg numbness/tingling Integumentary: no rash, no pruritis, no redness, no sores Neurological: paralysis, weakness, change in speech, balance difficulties, gait dysfunction, no double vision Psychiatric: no anxiety, no insomnia Exam - Exam Narrative exam: MUSCULOSKELETAL SPECIALTY EXAM CONSTITUTIONAL: Well developed, well nourished, appropriately groomed. RIGHT hand dominant. Eyes: Right eyelid eversion on the inferior aspect. Red and irritated looking. Left eye less red and irritated appearance LYMPHATIC: No appreciable abnormalities palpable in neck Quarter sized structure just anterior to the left ear above the mastoid area, nontender to palpation, freely mobile RESPIRATORY: Clear to auscultation bilaterally, no increased work of breathing CARDIOVASCULAR: Regular Rate/ Rhythm, no swelling, edema or tenderness in BUE or BLE. Pulses pa lpable in all extremities. All extremities warm. GI: + bowel sounds, soft, NTTP, nondistended. INTEGUMENTARY: Normal, no lesion, rash, masses or bruising noted in extremities. MUSCULOSKELETAL: BUE and BLE normal without defect, crepitus, subluxation, effusion, arthritic changes or TTP. R 3 /5 L 4+ /5 ROM reduced on right Tone reduced on right NEURO: CN II : Visual alvarez full to confrontation CN II, III : PERRL CN III, IV, : EOMI CN V : Facial sensation impaired on right CN VII : Right facial droop CN VIII : Hearing intact to finger rustle CN IX, X : Palate/uvula elevate midline, phonation normal CN XI : Intact shoulder shrug and head rotation CN XII : Tongue protrudes slightly right Sensation intact in all extremities without extinction. Reflexes 2+ bilaterally at biceps, brachioradialis and patella. No clonus at ankles. Coordination intact in LUE . No tremor noted in 4 extremities. Naming and repetition intact. Follows 2 step commands. Aphasia not appreciated Dysarthria present Dysphagia present Neglect not appreciated POSTURE and GAIT: Sitting posture good. Balance and gait deferred until seen with therapy. PSYCH: Alert, oriented x3, affect appears euthymic. Insight appears intact. - Constitutional Vitals: Vital Signs - 12hr 10/17/19 14:16 Temperature 99.6 F Pulse Rate 70 Respiratory 18 Rate Blood Pressure 166/101 [Left] O2 Sat by Pulse 97 Oximetry Assessment and Plan Assessment and plan: Patient was assessed and evaluated for Acute Inpatient Rehab Unit. Due to the patients above-mentioned medical complexity, along with decreased functional mobility and self care, this patient continues to require and be appropriate for a comprehensive, multidisciplinary [id number] rehabilitation program. These needs cannot be met in an outpatient or other less intensive setting. The patient would continue to benefit from skilled therapy intervention for at least 3 hours per day, five days a week, with techniques specific to the needs of the patient to improve function, activities of daily living, and reintegration into the community. The patient continues to require: -- OT to improve ROM, self-care, and learn use of adaptive equipment -- PT to improve strength and balance, functional transfers, and ambulation with energy conservation techniques to improve functional mobility -- MAPPING PILOT to address cognitive deficits and swallowing ability -- 24 hour RN to ensure and prevent skin breakdown, promote progressive independence while ensuring safety, ensure education regarding medications, and incorporation of the rehabilitation at the bedside -- 24 hour First Aid Officer to coordinate this interdisciplinary program, and to manage/prevent complications as a result of the patients medical comorbidities. -Plan of care by day 4 -Weekly team conferences With such a program, there is a reasonable certainty that the goals individualized for this patient can be achieved within the specified length of stay. CVA with right hemiparesis: Continue Secondary Stroke Prevention (Antithrombotic, Statin (Goal LDL-C <70), BP control (Goal <140/90), GLU control (Goal A1c <7), and lifestyle modification). Monitor for recurrent stroke or post-stroke recrudescence. Continue neuromotor therapy as above. Family training when available. Monitor for post stroke depression, cognitive deficits, seizure, dysphagia, aphasia, shoulder hand syndrome, sensory deficits, spasticity, bowel/bladder deficits, sleep disturbance, vision deficits and DVT. Prognosis for recovery and Secondary Stroke Prevention discussed. Follow up with Neurology. No driving until cleared by Neurologist. Dysarthria: Continue MAPPING PILOT to improve ability to speak clearly by strengthening and improving control of muscles, improving breath support and slowing rate of speech. Dysphagia: Continue current diet. MAPPING PILOT to monitor and advance diet as able, and perform FEES, MBSS or EStim as needed. Hypertension: Continue medication. Monitor blood pressure. Adjust medications as needed for normotension. Hold for hypotension. Restart home losartan at lower dose. Patient was previously on losartan, amlodipine, clonidine. Glaucoma: Restart latanoprost. COPD: Restart montelukast and inhalers. Patient previously on Symbicort 160/45 at home will substitute per our formulary here. Monitor along with respiratory therapy. Osteoarthritis: Tylenol for pain relief. X-rays reviewed and show mild degenerative changes in the right hip which is where the patient predominately has pain. Rhabdomyolysis: Monitor as CK continues to decrease, mild at this point. IV fluids as needed for clearance. Thrombocytopenia hold Lovenox. Monitor for platelet return. May need to hold aspirin if platelets continue to drop. Consider heme-onc consult if needed. Parotid and lacrimal gland abnormalities: Continue to monitor. Patient will need outpatient follow-up with ENT. ADL dysfunction: OT will work on improving ability to perform ADLs (including assistive devices) to increase independence and decrease caregiver burden and improve functional transfers and mobility training. Difficulty walking: PT will work on gait training and proper use of assistive devices and advance as appropriate to use of stairs and outside ambulation on uneven surfaces. Unsteadiness on feet: PT will work on improving static and dynamic sitting and standing balance as well as proper use of assistive devices to decrease risk of falls. Abnormality of gait: PT will work to improve safety and efficiency of gait through neuromotor training and gait training along with instruction on proper use of assistive devices. Muscle weakness: PT & OT will work on strengthening exercises to improve functional strength including mixture of closed and open kinetic chain exercises. Debility: PT & OT will work on improving overall functional status to improve participation with ADLs, mobility and social involvement. Fatigue: PT & OT will work on improving endurance through aerobic exercises and therapeutic activity while monitoring patients tolerance for activity and vital signs as needed. DVT ppx: Lovenox - On hold due to thrombocytopenia Pain: Continue physical modalities in therapy and pain medications as needed to achieve functional pain control. Sleep: Monitor and address as needed. Bowel: Monitor and address as needed. Appetite: Monitor and address as needed. Discharge planning: Pending therapy progress and care plan meeting. Will kaykay nue discussion with therapy team, SW, patient and family. Restrictions/ Precautions: Falls WB status: FWB Functional Hx: ADLs: Independent Cognition: Independent Mobility: Cane Barriers to Discharge: Decreased mobility and ability to perform self care, balance deficits, weakness Estimated Length of Stay: 1421 days Discharge Destination: Home with family Versus home alone POST ADMISSION PHYSICIAN EVALUATION I have examined the patient and find that functional status, medical condition and appropriateness for IRF admission are essentially unchanged from those described in the preadmission screening. Will monitor for worsening Neurologic symptoms, recurrent stroke, shoulder-hand syndrome, skin breakdown, increased tone or spasticity, worsening dysphagia, DVT/PE, bowel and bladder com plications and complications due to Hypertension, COPD, thrombocytopenia, rhabdomyolysis, and electrolyte abnormalities. Will attempt to avoid occurrence of these issues or treat them if they present themselves.
[2019-10-17] MEDS: LATANOPROST 0.005% OPHTH SOLN 2.5 ML OU SCH (18:10)
[2019-10-17] MEDS: MONTELUKAST 10 MG TAB PO SCH (18:10)
[2019-10-17] MEDS: ARFORMOTEROL 15 MCG/2 ML NEBU IH SCH (21:22)
[2019-10-17] MEDS: BUDESONIDE 0.5 MG/2 ML NEBU IH SCH (21:22)
[2019-10-18] MEDS: hydrALAZINE 20 MG/1 ML INJ IV PRN (04:23)
[2019-10-18 07:25] LABS: Basophils # (Auto) 0.1 K/mm3 (0.0-0.1); Basophils % (Auto) 1.1 % (0.0-1.8); Eosinophils # (Auto) 0.3 K/mm3 (0.0-0.4); Eosinophils % (Auto) 5.7 % (0.0-4.3); Hematocrit 46.6 % (35.5-45.6); Hemoglobin 14.9 gm/dl (11.8-15.2); Lymphocytes # (Auto) 2.1 K/mm3 (1.2-5.4); Lymphocytes % (Auto) 41.4 % (13.4-35.0); Mean Corpuscular HGB Conc 32 % (32-34); Mean Corpuscular Volume 75 fl (84-94); Monocytes # (Auto) 0.3 K/mm3 (0.0-0.8); Monocytes % (Auto) 6.4 % (0.0-7.3); Red Blood Count 6.23 M/mm3 (3.65-5.03)
[2019-10-18 07:38] LABS: Alanine Aminotransferase 30 units/L (7-56); Albumin 3.7 g/dL (3.9-5); BUN/Creatinine Ratio 14; Blood Urea Nitrogen 13 mg/dL (9-20); Calcium 9.3 mg/dL (8.4-10.2); Hemolysis Index 23
[2019-10-18] MEDS: BUDESONIDE 0.5 MG/2 ML NEBU IH SCH ×2 (07:56→20:38)
[2019-10-18] MEDS: ARFORMOTEROL 15 MCG/2 ML NEBU IH SCH ×2 (07:56→20:38)
[2019-10-18 08:52] LABS: Platelet Count 143 K/mm3 (140-440)
[2019-10-18] MEDS ORDERED: ENOXAPARIN 40 MG/0.4 ML INJ SUB-Q SCH (10:00)
[2019-10-18] MEDS: LOSARTAN 25 MG TAB PO SCH (11:49)
[2019-10-18] MEDS: ASPIRIN EC 325 MG TAB PO SCH (11:49)
--- NOTE | 2019-10-18 14:47 | Progress Note ---
Subjective Date of service: 10/18/19 Principal diagnosis: CVA with right hemiparesis Interval history: Patient was found down on the floor for approximately 2 days and was brought to the ER. He had slurred speech along with right-sided weakness. CT head showed no acute changes but did show chronic infarcts as well as notable enlargements of the lacrimal glands and parotid gland. MRI brain showed subacute infarct in the maryjo. Echocardiogram showed mild left ventricular diastolic dysfunction and an EF of 55%. CTA neck showed no acute abnormalities but did notate the parotid gland abnormalities. CTA head also noted the enlarged lacrimal glands, bilateral parotid lesions with the largest on the left, incidental development of venous anomaly on the left inferior frontal lobe, and a right superior ophthalmic vein dilation. Otherwise [place] and MCA were normal. Radiologist opined the lesions in the parotid and lacrimal glands could be benign however could also be worrisome for lymphoma. Pelvic x-ray showed mild degenerative changes but no acute fracture. Heme-onc consult was obtained and he opined that the enlarged lacrimal gland and parotid glands could also be due to a rheumatologic issue. At any rate and ENT follow-up as an outpatient would be needed for further diagnostic biopsies. He also evaluated the patient for elevated hemoglobin hematocrit. Iron was given and the patient was also referred for outpatient follow-up. Neurology was also consulted and agreed with the findings above however also mentioned that the bitemporal atrophy could point to a level of dementia in the patient. Patient was start on secondary stroke prevention. Hyperkalemia was treated with Kayexalate and did resolve. Patient was given IV fluids for rhabdomyolysis and total CK was still elevated at 291 at last check. Platelets consistently decreased during his admission and Lovenox was held due to platelets of 139. At this point the patient continues to be high risk for further complications including bleeding risk, recurrent stroke, unknown lacrimal and parotid gland disease, venous malformation and elevated CK. Will need to monitor the patient closely along with labs and make adjustments accordingly. Patient also high risk due to not being on any blood pressure medication at the time of discharge with ongoing blood pressure issues and a total of 3 blood pressure medications prior to admission. Interval History: Patient is participating in therapy and making reasonable progress. Taking rest breaks as needed. +BM. Afebrile. Denies palpitations, dyspnea, cough, N/V. CVA with right hemiparesis: Monitor for neuro decline, post stroke depression, cognitive deficits, seizure, worsening dysphagia, shoulder hand syndrome, sensory deficits, spasticity, bowel/bladder deficits, sleep disturbance, vision deficits and DVT. Dysarthria: Continue EMBEDDED SYSTEMS DESIGNER to improve ability to speak clearly by strengthening and improving control of muscles, improving breath support and slowing rate of speech. Dysphagia: Continue current diet. EMBEDDED SYSTEMS DESIGNER to monitor and advance diet as able, and perform FEES, MBSS or EStim as needed. Hypertension: Restarted home ARB at low dose. Plan to increase tomorrow based on results of vitals. SBP 140-170 today Glaucoma: continue medications. Will need follow up with [employer] COPD: Continue formulary substituted inhalers. No shortness of breath currently. Monitor for need to increase medications are supplemental oxygen. Chest x-ray as needed Osteoarthritis: Does complain of pain primarily in the right hip. Has Tylenol for symptomatic relief. Mild to moderate degenerative changes on x-ray previously seen. Modalities as needed Rhabdomyolysis: Total CK has normalized at 138. Renal function doing well. Con tinue to monitor but this is likely resolved. Thrombocytopenia: hold Lovenox. Monitor for platelet return. May need to hold aspirin if platelets continue to drop. Consider heme-onc consult if needed. Will look to restart Lovenox in next day or 2 pending platelet progression. Parotid and lacrimal gland abnormalities: Continue to monitor. Patient will need outpatient follow-up with ENT and heme-onc. All records, vitals, labs and medications were reviewed. No other issues per patient, nursing or therapy. PUI?: No Objective - Exam Narrative Exam: MUSCULOSKELETAL SPECIALTY EXAM CONSTITUTIONAL: Well developed, well nourished, appropriately groomed. RIGHT hand dominant. HEENT: Right eyelid eversion on the inferior aspect. Red and irritated looking. Left eye less red and irritated appearance Quarter sized structure just anterior to the left ear above the mastoid area, nontender to palpation, freely mobile RESPIRATORY: Clear to auscultation bilaterally, distant lung sounds, no increased work of breathing CARDIOVASCULAR: Regular Rate/ Rhythm, no swelling, edema or tenderness in BUE or BLE. All extremities warm. GI: + bowel sounds, soft, NTTP, nondistended. INTEGUMENTARY: Normal, no lesion, rash, masses or bruising noted in extremities. MUSCULOSKELETAL: BUE and BLE normal without defect, crepitus, subluxation, effusion, arthritic changes or TTP. R 3 /5 L 4+ /5 ROM reduced on right Tone reduced on right NEURO: CN V : Facial sensation impaired on right CN VII : Right facial droop CN XII : Tongue protrudes slightly right Sensation intact in all extremities without extinction. No tremor noted in 4 extremities. Naming and repetition intact. Follows 2 step commands. Aphasia not appreciated Dysarthria present Dysphagia present Neglect not appreciated POSTURE and GAIT: Sitting posture good. Balance and gait deferred until seen with therapy. PSYCH: Alert, oriented x3, affect appears euthymic. Insight appears intact. - Constitutional Vitals: Vital Signs - 12hr 10/18/19 10/18/19 10/18/19 04:20 07:47 08:00 Temperature 98.4 F 98.5 F Pulse Rate 56 L 63 Pulse Rate [ 62 Anterior Bilateral Throughout] Respiratory 16 18 Rate Respiratory 18 Rate [Anterior Bilateral Throughout] Blood Pressure 172/103 159/95 O2 Sat by Pulse 97 96 Oximetry 10/18/19 11:19 Temperature 98.5 F Pulse Rate 69 Pulse Rate [ Anterior Bilateral Throughout] Respiratory 18 Rate Respiratory Rate [Anterior Bilateral Throughout] Blood Pressure 144/83 O2 Sat by Pulse 96 Oximetry - Allied health notes Allied health notes reviewed: nursing, PT, ST, OT - Labs CBC & Chem 7: 10/18/19 07:09 10/18/19 07:09 Labs: Laboratory Results - last 72 hr 10/18/19 10/18/19 07:09 07:09 WBC 5.0 RBC 6.23 H Hgb 14.9 Hct 46.6 H MCV 75 L MCH 24 L MCHC 32 RDW 15.0 Plt Count 143 Lymph % (Auto) 41.4 H [place] % (Auto) 6.4 Eos % (Auto) 5.7 H Baso % (Auto) 1.1 Lymph # 2.1 [place] # 0.3 Eos # 0.3 Baso # 0.1 Seg Neutrophils % 45.4 Seg Neutrophils # 2.3 Sodium 139 Potassium 3.6 Chloride 101.0 Carbon Dioxide 24 Anion Gap 18 BUN 13 Creatinine 0.9 Estimated GFR > 60 BUN/Creatinine Ratio 14 Glucose 104 H Calcium 9.3 Total Bilirubin 0.60 AST 29 ALT 30 Alkaline Phosphatase 73 Total Creatine Kinase 138 Total Protein 7.5 Albumin 3.7 L Albumin/Globulin Ratio 1.0 Assessment and Plan CVA with right hemiparesis: Continue Secondary Stroke Prevention (Antithrombotic, Statin (Goal LDL-C <70), BP control (Goal <140/90), GLU control (Goal A1c <7), and lifestyle modification). Monitor for recurrent stroke or post-stroke recrudescence. Continue neuromotor therapy as above. Family training when available. Monitor for post stroke depression, cognitive deficits, seizure, dysphagia, aphasia, shoulder hand syndrome, sensory deficits, spasticity, bowel/bladder deficits, sleep disturbance, vision deficits and DVT. Prognosis for recovery and Secondary Stroke Prevention discussed. Follow up with Neurology. No driving until cleared by Neurologist. Dysarthria: Continue EMBEDDED SYSTEMS DESIGNER to improve ability to speak clearly by strengthening and improving control of muscles, improving breath support and slowing rate of speech. Dysphagia: Continue current diet. EMBEDDED SYSTEMS DESIGNER to monitor and advance diet as able, and perform FEES, MBSS or EStim as needed. Hypertension: Continue medication. Monitor blood pressure. Adjust medications as needed for normotension. Hold for hypotension. Restart home losartan at lower dose. Patient was previously on losartan, amlodipine, clonidine. Glaucoma: Restart latanoprost. COPD: Restart montelukast and inhalers. Patient previously on Symbicort 160/45 at home will substitute per our formulary here. Monitor along with respiratory therapy. Osteoarthritis: Tylenol for pain relief. X-rays reviewed and show mild deg enerative changes in the right hip which is where the patient predominately has pain. Rhabdomyolysis: Monitor as CK continues to decrease, mild at this point. IV fluids as needed for clearance. Thrombocytopenia hold Lovenox. Monitor for platelet return. May need to hold aspirin if platelets continue to drop. Consider heme-onc consult if needed. Parotid and lacrimal gland abnormalities: Continue to monitor. Patient will need outpatient follow-up with ENT. ADL dysfunction: OT will work on improving ability to perform ADLs (including assistive devices) to increase independence and decrease caregiver burden and improve functional transfers and mobility training. Difficulty walking: PT will work on gait training and proper use of assistive devices and advance as appropriate to use of stairs and outside ambulation on uneven surfaces. Unsteadiness on feet: PT will work on improving static and dynamic sitting and standing balance as well as proper use of assistive devices to decrease risk of falls. Abnormality of gait: PT will work to improve safety and efficiency [facility] training and gait training along with instruction on proper use of assistive devices. Muscle weakness: PT & OT will work on strengthening exercises to improve functional strength including mixture of closed and open kinetic chain exercises. Debility: PT & OT will work on improving overall functional status to improve participation with ADLs, mobility and social involvement. Fatigue: PT & OT will work on improving endurance through aerobic exercises and therapeutic activity while monitoring patients tolerance for activity and vital signs as needed. DVT ppx: Lovenox - On hold due to thrombocytopenia, look to restart in next few days if platelets improve. Pain: Continue physical modalities in therapy and pain medications as needed to achieve functional pain control. Sleep: Monitor and address as needed. Bowel: Monitor and address as needed. Appetite: Monitor and address as needed. Discharge planning: Pending therapy progress and care plan meeting. Will continue discussion with therapy team, SW, patient and family. Restrictions/ Precautions: Falls WB status: FWB Functional Hx: ADLs: Independent Cognition: Independent Mobility: Cane Barriers to Discharge: Decreased mobility and ability to perform self care, balance deficits, weakness Estimated Length of Stay: 1421 days Discharge Destination: Home with family Versus home alone
[2019-10-18] MEDS: MONTELUKAST 10 MG TAB PO SCH (18:44)
[2019-10-18] MEDS: LATANOPROST 0.005% OPHTH SOLN 2.5 ML OU SCH (18:49)
[2019-10-19] MEDS: ARFORMOTEROL 15 MCG/2 ML NEBU IH SCH ×3 (09:20→21:44)
[2019-10-19] MEDS: BUDESONIDE 0.5 MG/2 ML NEBU IH SCH ×3 (09:21→21:44)
[2019-10-19] MEDS: ASPIRIN EC 325 MG TAB PO SCH (11:43)
[2019-10-19] MEDS: LOSARTAN 25 MG TAB PO SCH ×2 (11:43→12:08)
--- NOTE | 2019-10-19 13:25 | Progress Note ---
Subjective Date of service: 10/19/19 Principal diagnosis: CVA with right hemiparesis Interval history: Patient was found down on the floor for approximately 2 days and was brought to the ER. He had slurred speech along with right-sided weakness. CT head showed no acute changes but did show chronic infarcts as well as notable enlargements of the lacrimal glands and parotid gland. MRI brain showed subacute infarct in the maryjo. Echocardiogram showed mild left ventricular diastolic dysfunction and an EF of 55%. CTA neck showed no acute abnormalities but did notate the parotid gland abnormalities. CTA head also noted the enlarged lacrimal glands, bilateral parotid lesions with the largest on the left, incidental development of venous anomaly on the left inferior frontal lobe, and a right superior ophthalmic vein dilation. Otherwise [place] and MCA were normal. Radiologist opined the lesions in the parotid and lacrimal glands could be benign however could also be worrisome for lymphoma. Pelvic x-ray showed mild degenerative changes but no acute fracture. Heme-onc consult was obtained and he opined that the enlarged lacrimal gland and parotid glands could also be due to a rheumatologic issue. At any rate and ENT follow-up as an outpatient would be needed for further diagnostic biopsies. He also evaluated the patient for elevated hemoglobin hematocrit. Iron was given and the patient was also referred for outpatient follow-up. Neurology was also consulted and agreed with the findings above however also mentioned that the bitemporal atrophy could point to a level of dementia in the patient. Patient was start on secondary stroke prevention. Hyperkalemia was treated with Kayexalate and did resolve. Patient was given IV fluids for rhabdomyolysis and total CK was still elevated at 291 at last check. Platelets consistently decreased during his admission and Lovenox was held due to platelets of 139. At this point the patient continues to be high risk for further complications including bleeding risk, recurrent stroke, unknown lacrimal and parotid gland disease, venous malformation and elevated CK. Will need to monitor the patient closely along with labs and make adjustments accordingly. Patient also high risk due to not being on any blood pressure medication at the time of discharge with ongoing blood pressure issues and a total of 3 blood pressure medications prior to admission. Interval History: Patient is participating in therapy and making reasonable progress. Taking rest breaks as needed. +BM. Afebrile. Denies palpitations, dyspnea, cough, N/V. CVA with right hemiparesis: Monitor for neuro decline, post stroke depression, cognitive deficits, seizure, worsening dysphagia, shoulder hand syndrome, sensory deficits, spasticity, bowel/bladder deficits, sleep disturbance, vision deficits and DVT. Dysarthria: Continue TARGETING ACQUISITION OFFICER to improve ability to speak clearly by strengthening and improving control of muscles, improving breath support and slowing rate of speech. Dysphagia: Continue current diet. TARGETING ACQUISITION OFFICER to monitor and advance diet as able, and perform FEES, MBSS or EStim as needed. Hypertension: Increased dose of ARB. Monitor for improvement Glaucoma: continue medications. Will need follow up with [employer] COPD: Continue formulary substituted inhalers. No shortness of breath currently. Monitor for need to increase medications are supplemental oxygen. Chest x-ray as needed Osteoarthritis: Pain improved with Tylenol currently. Continue to monitor. Has Tylenol for symptomatic relief. Mild to moderate degenerative changes on x-ray previously seen. Modalities as needed Rhabdomyolysis: Total CK has normalized at 138. Renal function doing well. Continue to monitor but this is likely resolved. Thrombocytopenia: hold Lovenox. Monitor for platelet return. May need to hold aspirin if platelets continue to drop. Consider heme-onc consult if needed. Will look to restart Lovenox in next day or 2 pending platelet progression. Parotid and lacrimal gland abnormalities: Continue to monitor. Patient will need outpatient follow-up with ENT and heme-onc. With new information obtained from the brother will obtain records from [facility]. All records, vitals, labs and medications were reviewed. No other issues per patient, nursing or therapy. Patient discussed in team conference. Making fairly decent goals with all therapies. Will likely need all 21 days based on his deficits and in order to get him home as close to independent as possible. Having difficulty utilizing the cane that he had before which is nonserviceable at this point but he still needs assistance with using it on the opposite side now. Improved with speech and is able to tolerate his diet except for having very poor dentition. Dysarthria slightly improving and he still has issues with this when he attempts to talk too fast or does not enunciate well. ADLs are improving. He did asked that I contact his brother who lives in [place]. His brother states that the patient used to live near him in [place] and prior to the stroke they had talked about getting a house for him to live and so that he could return to [place]. That has already been put in process and is about 2 weeks out which will work w moises with the timing of his discharge. He also states that he was previously seen at [facility] which is part of the [facility] for the parotid mass. I will attempt to see if we can obtain records from them concerning this so that we are not putting him through extra test if they have a good diagnosis already. The brother's name is Silvestre Dunn and his phone number is [phone]. In all, 36 minutes was invested in providing care for the patient today, approximately 20 minutes of that was counseling and coordinating care as well as discussing discharge options and prior medical issues with the brother who was able to provide the history noted above and able to be understood. Additional records will be requested from [facility]. PUI?: No Objective - Exam Narrative Exam: MUSCULOSKELETAL SPECIALTY EXAM CONSTITUTIONAL: Well developed, well nourished, appropriately groomed. RIGHT hand dominant. HEENT: Right eyelid eversion on the inferior aspect. Red and irritated looking. Left eye less red and irritated appearance Quarter sized structure just anterior to the left ear, nontender to palpation, freely mobile RESPIRATORY: Clear to auscultation bilaterally, distant lung sounds, no increased work of breathing CARDIOVASCULAR: Regular Rate/ Rhythm, no swelling, edema or tenderness in BUE or BLE. All extremities warm. GI: + bowel sounds, soft, NTTP, nondistended. INTEGUMENTARY: Normal, no lesion, rash, masses or bruising noted in extremities. MUSCULOSKELETAL: BUE and BLE normal without defect, crepitus, subluxation, effusion, arthritic changes or TTP. R 3 /5 L 4+ /5 ROM reduced on right Tone reduced on right NEURO: CN V : Facial sensation impaired on right CN VII : Right facial droop CN XII : Tongue protrudes slightly right Sensation intact in all extremities without extinction. No tremor noted in 4 extremities. Naming and repetition intact. Follows 2 step commands. Aphasia not appreciated Dysarthria present Dysphagia present Neglect not appreciated POSTURE and GAIT: Sitting posture good. Loss of balance when walking. Able to ambulate with a rolling walker fairly well at this point, but still has noticeable issues with guidance of walker and progression of right foot without dragging. Able to do this when he is concentrating. PSYCH: Alert, oriented x3, affect appears euthymic. Insight appears intact. - Constitutional Vitals: Vital Signs - 12hr 10/19/19 10/19/19 10/19/19 03:32 11:29 11:43 Temperature 98.5 F Pulse Rate 60 76 76 Respiratory 20 Rate Blood Pressure 138/80 136/90 136/90 O2 Sat by Pulse 92 98 Oximetry - Allied health notes Allied health notes reviewed: nursing, PT, ST, OT - Labs CBC & Chem 7: 10/18/19 07:09 10/18/19 07:09 Labs: Laboratory Results - last 72 hr 10/18/19 10/18/19 07:09 07:09 WBC 5.0 RBC 6.23 H Hgb 14.9 Hct 46.6 H MCV 75 L MCH 24 L MCHC 32 RDW 15.0 Plt Count 143 Lymph % (Auto) 41.4 H [place] % (Auto) 6.4 Eos % (Auto) 5.7 H Baso % (Auto) 1.1 Lymph # 2.1 [place] # 0.3 Eos # 0.3 Baso # 0.1 Seg Neutrophils % 45.4 Seg Neutrophils # 2.3 Sodium 139 Potassium 3.6 Chloride 101.0 Carbon Dioxide 24 Anion Gap 18 BUN 13 Creatinine 0.9 Estimated GFR > 60 BUN/Creatinine Ratio 14 Glucose 104 H Calcium 9.3 Total Bilirubin 0.60 AST 29 ALT 30 Alkaline Phosphatase 73 Total Creatine Kinase 138 Total Protein 7.5 Albumin 3.7 L Albumin/Globulin Ratio 1.0 Assessment and Plan CVA with right hemiparesis: Continue Secondary Stroke Prevention (Antithrombotic, Statin (Goal LDL-C <70), BP control (Goal <140/90), GLU control (Goal A1c <7), and lifestyle modification). Monitor for recurrent stroke or post-stroke recrudescence. Continue neuromotor therapy as above. Family training when available. Monitor for post stroke depression, cognitive deficits, seizure, dysphagia, aphasia, shoulder hand syndrome, sensory deficits, spasticity, bowel/bladder deficits, sleep disturbance, vision deficits and DVT. Prognosis for recovery and Secondary Stroke Prevention discussed. Follow up with Neurology. No driving until cleared by Neurologist. Dysarthria: Continue TARGETING ACQUISITION OFFICER to improve ability to speak clearly by strengthening and improving control of muscles, improving breath support and slowing rate of speech. Dysphagia: Continue current diet. TARGETING ACQUISITION OFFICER to monitor and advance diet as able, and perform FEES, MBSS or EStim as needed. Hypertension: Continue medication. Monitor blood pressure. Adjust medications as needed for normotension. Hold for hypotension. Restart home losartan at lower dose. Patient was previously on losartan, amlodipine, clonidine. Glaucoma: Restart latanoprost. COPD: Restart montelukast and inhalers. Patient previously on Symbicort 160/45 at home will substitute per our formulary here. Monitor along with respiratory therapy. Osteoarthritis: Tylenol for pain relief. X-rays reviewed and show mild degenerative changes in the right hip which is where the patient predominately has pain. Rhabdomyolysis: Appears resolved Thrombocytopenia hold Lovenox. Monitor for platelet return. May need to hold aspirin if platelets continue to drop. Consider heme-onc consult if needed. Parotid and lacrimal gland abnormalities: Continue to monitor. Patient will need outpatient follow-up with ENT. Apparently this is a known issue and was treated previously at [facility]. Will attempt to request records ADL dysfunction: OT will work on improving ability to perform ADLs (including assistive devices) to increase independence and decrease caregiver burden and improve functional transfers and mobility training. Difficulty walking: PT will work on gait training and proper use of assistive devices and advance as appropriate to use of stairs and outside ambulation on uneven surfaces. Unsteadiness on feet: PT will work on improving static and dynamic sitting and standing balance as well as proper use of assistive devices to decrease risk of falls. Abnormality of gait: PT will work to improve safety and efficiency of gait through neuromotor training and gait training along with instruction on proper use of assistive devices. Muscle weakness: PT & OT will work on strengthening exercises to improve functional strength including mixture of closed and open kinetic chain exercises. Debility: PT & OT will work on improving overall functional status to improve participation with ADLs, mobility and social involvement. Fatigue: PT & OT will work on improving endurance through aerobic exercises and therapeutic activity while monitoring patients tolerance for activity and vital signs as needed. DVT ppx: Lovenox - On hold due to thrombocytopenia, look to restart in next few days if platelets improve. Pain: Continue physical modalities in therapy and pain medications as needed to achieve functional pain control. Sleep: Monitor and address as needed. Bowel: Monitor and address as needed. Appetite: Monitor and address as needed. Discharge planning: Pending therapy progress and care plan meeting. Will continue discussion with therapy team, SW, patient and family. Restrictions/ Precautions: Falls WB status: FWB Functional Hx: ADLs: Independent Cognition: Independent Mobility: Cane Barriers to Discharge: Decreased mobility and ability to perform self care, balance deficits, weakness Estimated Length of Stay: 1421 days Discharge Destination: Home with family Versus home alone, may be able to go back to [place] [facility]
[2019-10-19] MEDS: MONTELUKAST 10 MG TAB PO SCH (17:10)
[2019-10-19] MEDS: LATANOPROST 0.005% OPHTH SOLN 2.5 ML OU SCH (17:11)
[2019-10-20 06:42] LABS: Hematocrit 45.3 % (35.5-45.6); Hemoglobin 14.7 gm/dl (11.8-15.2); Mean Corpuscular HGB Conc 32 % (32-34); Mean Corpuscular Volume 75 fl (84-94); Red Blood Count 6.06 M/mm3 (3.65-5.03); Red Cell Distribution Width 15.1 % (13.2-15.2)
[2019-10-20 07:25] LABS: BUN/Creatinine Ratio 17; Blood Urea Nitrogen 20 mg/dL (9-20); Calcium 9.4 mg/dL (8.4-10.2); Hemolysis Index 4
[2019-10-20 07:41] LABS: Platelet Count 159 K/mm3 (140-440)
[2019-10-20] MEDS: ARFORMOTEROL 15 MCG/2 ML NEBU IH SCH ×2 (08:41→20:17)
[2019-10-20] MEDS: BUDESONIDE 0.5 MG/2 ML NEBU IH SCH ×2 (08:41→20:17)
[2019-10-20] MEDS ORDERED: LOSARTAN 25 MG TAB PO SCH (10:00)
--- NOTE | 2019-10-20 11:23 | Progress Note ---
Subjective Date of service: 10/20/19 Principal diagnosis: CVA with right hemiparesis Interval history: Patient was found down on the floor for approximately 2 days and was brought to the ER. He had slurred speech along with right-sided weakness. CT head showed no acute changes but did show chronic infarcts as well as notable enlargements of the lacrimal glands and parotid gland. MRI brain showed subacute infarct in the maryjo. Echocardiogram showed mild left ventricular diastolic dysfunction and an EF of 55%. CTA neck showed no acute abnormalities but did notate the parotid gland abnormalities. CTA head also noted the enlarged lacrimal glands, bilateral parotid lesions with the largest on the left, incidental development of venous anomaly on the left inferior frontal lobe, and a right superior ophthalmic vein dilation. Otherwise cher-ae heights of [place] and MCA were normal. Radiologist opined the lesions in the parotid and lacrimal glands could be benign however could also be worrisome for lymphoma. Pelvic x-ray showed mild degenerative changes but no acute fracture. Heme-onc consult was obtained and he opined that the enlarged lacrimal gland and parotid glands could also be due to a rheumatologic issue. At any rate and ENT follow-up as an outpatient would be needed for further diagnostic biopsies. He also evaluated the patient for elevated hemoglobin hematocrit. Iron was given and the patient was also referred for outpatient follow-up. Neurology was also consulted and agreed with the findings above however also mentioned that the bitemporal atrophy could point to a level of dementia in the patient. Patient was start on secondary stroke prevention. Hyperkalemia was treated with Kayexalate and did resolve. Patient was given IV fluids for rhabdomyolysis and total CK was still elevated at 291 at last check. Platelets consistently decreased during his admission and Lovenox was held due to platelets of 139. At this point the patient continues to be high risk for further complications including bleeding risk, recurrent stroke, unknown lacrimal and parotid gland disease, venous malformation and elevated CK. Will need to monitor the patient closely along with labs and make adjustments accordingly. Patient also high risk due to not being on any blood pressure medication at the time of discharge with ongoing blood pressure issues and a total of 3 blood pressure medications prior to admission. Interval History: Patient is participating in therapy and making reasonable progress. Taking rest breaks as needed. +BM. Afebrile. Denies palpitations, dyspnea, cough, N/V. CVA with right hemiparesis: Monitor for neuro decline, post stroke depression, cognitive deficits, seizure, worsening dysphagia, shoulder hand syndrome, sensory deficits, spasticity, bowel/bladder deficits, sleep disturbance, vision deficits and DVT. Dysarthria: Continue NURSERYPERSON to improve ability to speak clearly by strengthening and improving control of muscles, improving breath support and slowing rate of speech. Dysphagia: Continue current diet. NURSERYPERSON to monitor and advance diet as able, and perform FEES, MBSS or EStim as needed. Hypertension: Continue on increased dose of ARB. Monitor for improvement. BP not being taken Q4h. Discussed with nursing. Glaucoma: continue medications. Will need follow up with computer systems consultant COPD: Continue formulary substituted inhalers. No shortness of breath currently. Monitor for need to increase medications are supplemental oxygen. Chest x-ray as needed Osteoarthritis: Pain improved with Tylenol currently. Continue to monitor. Has Tylenol for symptomatic relief. Mild to moderate degenerative changes on x-ray previously seen. Modalities as needed Rhabdomyolysis: Total CK has normalized at 138. Renal function doing well. Continue to monitor but this is likely resolved. Thrombocytopenia: improved, restart Lovenox. Monitor Parotid and lacrimal gland abnormalities: Continue to monitor. Patient will need outpatient follow-up with ENT and heme-onc. With new information obtained from the brother will obtain records from [facility]. Awaiting contact All records, vitals, labs and medications were reviewed. No other issues per patient, nursing or therapy. PUI?: No Objective - Exam Narrative Exam: MUSCULOSKELETAL SPECIALTY EXAM CONSTITUTIONAL: Well developed, well nourished, appropriately groomed. RIGHT hand dominant. HEENT: Right eyelid eversion on the inferior aspect. Red and irritated looking. Left eye less red and irritated appearance Quarter sized structure just anterior to the left ear, nontender to palpation, freely mobile RESPIRATORY: Clear to auscultation bilaterally, distant lung sounds, no increased work of breathing CARDIOVASCULAR: Regular Rate/ Rhythm, no swelling, edema or tenderness in BUE or BLE. All extremities warm. GI: + bowel sounds, soft, NTTP, nondistended. INTEGUMENTARY: Normal, no lesion, rash, masses or bruising noted in extremities. MUSCULOSKELETAL: BUE and BLE normal without defect, crepitus, subluxation, effusion, arthritic changes or TTP. R 3 /5 L 4+ /5 ROM reduced on right Tone reduced on right NEURO: CN V : Facial sensation impaired on right CN VII : Right facial droop CN XII : Tongue protrudes slightly right Sensation intact in all extremities without extinction. No tremor noted in 4 extremities. Naming and repetition intact. Follows 2 step commands. Aphasia not appreciated Dysarthria present Dysphagia present Neglect not appreciated POSTURE and GAIT: Sitting posture good. Loss of balance when walking. Able to ambulate with a rolling walker fairly well at this point, but still has noticeable issues with guidance of walker and progression of right foot without dragging. PSYCH: Alert, oriented x3, affect appears euthymic. Insight appears intact. - Constitutional Vitals: Vital Signs - 12hr 10/20/19 10/20/19 10/20/19 00:42 04:08 09:14 Temperature 98.3 F 99.3 F 98.3 F Pulse Rate 61 61 70 Pulse Rate [ Anterior Bilateral Throughout] Respiratory 16 16 18 Rate Respiratory Rate [Anterior Bilateral Throughout] Blood Pressure 175/89 160/85 138/80 O2 Sat by Pulse 97 96 97 Oximetry 10/20/19 10:00 Temperature Pulse Rate Pulse Rate [ 74 Anterior Bilateral Throughout] Respiratory Rate Respiratory 20 Rate [Anterior Bilateral Throughout] Blood Pressure O2 Sat by Pulse Oximetry - Allied health notes Allied health notes reviewed: nursing, PT, ST, OT - Labs CBC & Chem 7: 10/20/19 06:29 10/20/19 06:29 Labs: Laboratory Results - last 72 hr 10/18/19 10/18/19 10/20/19 07:09 07:09 06:29 WBC 5.0 5.7 RBC 6.23 H 6.06 H Hgb 14.9 14.7 Hct 46.6 H 45.3 MCV 75 L 75 L MCH 24 L 24 L MCHC 32 32 RDW 15.0 15.1 Plt Count 143 159 Lymph % (Auto) 41.4 H Baxter % (Auto) 6.4 Eos % (Auto) 5.7 H Baso % (Auto) 1.1 Lymph # 2.1 Baxter # 0.3 Eos # 0.3 Baso # 0.1 Seg Neutrophils % 45.4 Seg Neutrophils # 2.3 Sodium 139 Potassium 3.6 Chloride 101.0 Carbon Dioxide 24 Anion Gap 18 BUN 13 Creatinine 0.9 Estimated GFR > 60 BUN/Creatinine Ratio 14 Glucose 104 H Calcium 9.3 Total Bilirubin 0.60 AST 29 ALT 30 Alkaline Phosphatase 73 Total Creatine Kinase 138 Total Protein 7.5 Albumin 3.7 L Albumin/Globulin Ratio 1.0 10/20/19 06:29 WBC RBC Hgb Hct MCV MCH MCHC RDW Plt Count Lymph % (Auto) Baxter % (Auto) Eos % (Auto) Baso % (Auto) Lymph # Baxter # Eos # Baso # Seg Neutrophils % Seg Neutrophils # Sodium 139 Potassium 4.0 Chloride 100.8 Carbon Dioxide 24 Anion Gap 18 BUN 20 Creatinine 1.2 Estimated GFR > 60 BUN/Creatinine Ratio 17 Glucose 104 H Calcium 9.4 Total Bilirubin AST ALT Alkaline Phosphatase Total Creatine Kinase Total Protein Albumin Albumin/Globulin Ratio Assessment and Plan CVA with right hemiparesis: Continue Secondary Stroke Prevention (Antithrombotic, Statin (Goal LDL-C <70), BP control (Goal <140/90), GLU control (Goal A1c <7), and lifestyle modification). Monitor for recurrent stroke or post-stroke recrudescence. Continue neuromotor therapy as above. Family training when available. Monitor for post stroke depression, cognitive deficits, seizure, dysphagia, aphasia, shoulder hand syndrome, sensory deficits, spasticity, bowel/bladder deficits, sleep disturbance, vision deficits and DVT. Prognosis for recovery and Secondary Stroke Prevention discussed. Follow up with Neurology. No driving until cleared by Neurologist. Dysarthria: Continue NURSERYPERSON to improve ability to speak clearly by strengthening and improving control of muscles, improving breath support and slowing rate of speech. Dysphagia: Continue current diet. NURSERYPERSON to monitor and advance diet as able, and perform FEES, MBSS or EStim as needed. Hypertension: Continue medication. Monitor blood pressure. Adjust medications as needed for normotension. Hold for hypotension. Restart home losartan at lower dose. Patient was previously on losartan, amlodipine, clonidine. Glaucoma: Restart latanoprost. COPD: Restart montelukast and inhalers. Patient previously on Symbicort 160/45 at home will substitute per our formulary here. Monitor along with respiratory therapy. Osteoarthritis: Tylenol for pain relief. X-rays reviewed and show mild degenerative changes in the right hip which is where the patient predominately has pain. Rhabdomyolysis: Appears resolved Thrombocytopenia Improved, monitor. Consider heme-onc consult if needed. Parotid and lacrimal gland abnormalities: Continue to monitor. Patient will need outpatient follow-up with ENT. Apparently this is a known issue and was treated previously at [facility]. Will attempt to request records ADL dysfunction: OT will work on improving ability to perform ADLs (including assistive devices) to increase independence and decrease caregiver burden and improve functional transfers and mobility training. Difficulty walking: PT will work on gait training and proper use of assistive devices and advance as appropriate to use of stairs and outside ambulation on uneven surfaces. Unsteadiness on feet: PT will work on improving static and dynamic sitting and standing balance as well as proper use of assistive devices to decrease risk of falls. Abnormality of gait: PT will work to improve safety and efficiency of gait th rough neuromotor training and gait training along with instruction on proper use of assistive devices. Muscle weakness: PT & OT will work on strengthening exercises to improve functional strength including mixture of closed and open kinetic chain exercises. Debility: PT & OT will work on improving overall functional status to improve participation with ADLs, mobility and social involvement. Fatigue: PT & OT will work on improving endurance through aerobic exercises and therapeutic activity while monitoring patients tolerance for activity and vital signs as needed. DVT ppx: Lovenox - On hold due to thrombocytopenia, look to restart in next few days if platelets improve. Pain: Continue physical modalities in therapy and pain medications as needed to achieve functional pain control. Sleep: Monitor and address as needed. Bowel: Monitor and address as needed. Appetite: Monitor and address as needed. Discharge planning: Pending therapy progress and care plan meeting. Will continu e discussion with therapy team, SW, patient and family. Restrictions/ Precautions: Falls WB status: FWB Functional Hx: ADLs: Independent Cognition: Independent Mobility: Cane Barriers to Discharge: Decreased mobility and ability to perform self care, balance deficits, weakness Estimated Length of Stay: 1421 days Discharge Destination: Home with family Versus home alone, may be able to go [facility] to [place] near family
[2019-10-20] MEDS: LOSARTAN 25 MG TAB PO SCH (12:40)
[2019-10-20] MEDS: ASPIRIN EC 325 MG TAB PO SCH (12:45)
[2019-10-20] MEDS: LATANOPROST 0.005% OPHTH SOLN 2.5 ML OU SCH (18:45)
[2019-10-20] MEDS: MONTELUKAST 10 MG TAB PO SCH (18:45)
--- NOTE | 2019-10-20 20:15 | IRU Plan of Care ---
Interdisciplinary Plan of Care - IP IRU INTERDISCIPLINARY PLAN: [facility] Inpatient Rehab Unit Plan of Care IRU Interdisciplinary Care Plan Start: 10/20/19 19:52 Freq: Status: Active Protocol: Document 10/20/19 19:57 TH (Rec: 10/20/19 20:06 TH [id number]) Interdisciplinary Problem List Interdisciplinary Problem List Interdisciplinary Problem List Impaired Eating/Swallowing, Query Text:Answers will Trigger Problems Impaired Bathing/Grooming, and Outcomes on Worklist. Impaired Dressing,Impaired Mobility,Impaired Transfers, Impaired Toileting,Knowledge Deficits,Discharge Concerns, Impaired Cardiovascular System IRU Interdisciplinary Care Plan Therapy Services Therapy Services Will Include: Physical Therapy,Occupational Query Text:Patient will be seen for a Therapy,Speech Therapy minimum of 3 hours of daily therapy 5 out of 7 days a week. Therapy intensity may be adjusted within a 7 consecutive day period to effectively serve the individual needs of the patient. Treatment Frequency/Intensity/Duration Treatment Frequency 5 days per week Treatment Intensity 3 hours per day Treatment Duration 14-18 days Problem Area: Eating/Swallowing Eating/Swallowing Outcomes Consume Least Restrictive Diet ,Improve Lingual ROM/Strength Eating/Swallowing Interventions Compensatory Strategies, Neuromuscular Re-Education, Patient/Caregiver Education Problem Area: Bathing/Grooming Bathing/Grooming Outcomes Improve [place] w/ Grooming,Improve [place] w/ Bathing Bathing/Grooming Interventions ADL Training,Use of Assistive Devices,Therapeutic Exercise, Therapeutic Activity, Neuromuscular Re-Education, Balance Work,Activity Tolerance Work,Patient/ Caregiver Education Problem Area: Dressing Dressing Outcomes Improve [place] w/ UB Dressing,Improve [place] w/ LB Dressing Dressing Interventions ADL Training,Use of Assistive Devices,Neuromuscular Re- Education,Therapeutic Exercise ,Balance Work,Modalities, Patient/Caregiver Education Problem Area: Mobility Mobility Outcomes Improve [place] w/ Bed Mobility,Improve [place] w/ Ambulation,Improve [place] w/ Stairs/Curb, Improve [place] w/ Wheelchair Mobility Interventions Therapeutic Exercise, Neuromuscular Re-Ed.,Activity Tolerance Work,Modalities,Use of Assistive Devices,Patient/ Caregiver Education,Bed Mobility Work,Gait Training,W/ C Mobility Work Problem Area: Transfers Transfers Outcomes Improve [place] w/ Bed Transfers,Improve [place] w/ Toilet Transfers,Improve [place] w/ Tub/Shower Transfers,Improve [place] w/ Car Transfers Transfers Interventions Transfer Training,Therapeutic Exercise,Neuromuscular Re- Education,Activity Tolerance Work,Use of Assistive Devices, Patient/Caregiver Education Problem Area: Bowel/Bladder Managment Bowel/Bladder Outcomes Bowel/Bladder Interventions Problem Area: Toileting Toileting Outcomes Improve [place] w/ Toileting Toileting Interventions ADL Training,Balance Work,Use of Assistive Devices Problem Area: Nutrition Nutrition Outcomes Nutrition Interventions Problem Area: Comprehension Comprehension Outcomes Comprehension Interventions Problem Area: Expression Expression Outcomes Expression Interventions Problem Area: Problem Solving Problem Solving Outcomes Problem Solving Interventions Problem Area: Memory Memory Outcomes Memory Interventions Problem Area: Pain Management Pain Management Outcomes Pain Management Interventions Problem Area: Knowledge Deficits Knowledge Deficits Outcomes Knowledge Deficits Interventions Problem Area: Skin/Tissue Integrity Skin/Tissue Integrity Outcomes Skin/Tissue Integrity Interventions Problem Area: Social Interaction Social Interaction Outcomes Social Interaction Interventions Problem Area: Adjustment to Disability Adjustment to Disability Outcomes Adjustment to Disability Interventions Problem Area: Discharge Concerns Discharge Concerns Outcomes Discharge w/ Necessary Equipment,Have Home Health/ Outpatient Services Discharge Concerns Interventions Discharge Planning,Equipment Assessment, Acquisition and Placement,Family/Caregiver Conference,Family/Caregiver Training Problem Area: Community Reintegration Community Reintegration Outcomes Community Reintegration Interventions Problem Area: Home Management Home Management Outcomes Home Management Interventions Problem Area: Safety Safety Outcomes Safety Interventions Problem Area: Medication Education Medication Education Outcomes Medication Education Interventions Problem Area: Diabetes Education Diabetes Education Outcomes Diabetes Education Interventions Problem Area: Oxygenation Oxygenation Outcomes Oxygenation Interventions Problem Area: Cardiovascular Cardiovascular Outcomes Cardiovascular Interventions Physician Only Medical Prognosis and Rehabilitation Potential (Completed by Physician) Good medical prognosis. Good rehab potential. Will look to improve over elos and discharge home with assistance from brother. This plan of care has been developed based on the findings from the pre- admission assessment, post admission physician evaluation, information gathered from the assessments from all therapy disciplines and other pertinent clinicians. The plan of care has been reviewed and discussed in collaboration with the interdisciplinary team. The plan of care will be reviewed and updated at least weekly.
[2019-10-20] MEDS: ENOXAPARIN 40 MG/0.4 ML INJ SUB-Q SCH (21:32)
[2019-10-21] MEDS: LOSARTAN 25 MG TAB PO SCH ×2 (08:26→09:33)
[2019-10-21] MEDS: ASPIRIN EC 325 MG TAB PO SCH ×2 (08:26→09:35)
[2019-10-21] MEDS: ARFORMOTEROL 15 MCG/2 ML NEBU IH SCH ×2 (08:48→20:45)
[2019-10-21] MEDS: BUDESONIDE 0.5 MG/2 ML NEBU IH SCH ×2 (08:48→20:45)
[2019-10-21] MEDS: LATANOPROST 0.005% OPHTH SOLN 2.5 ML OU SCH (17:08)
[2019-10-21] MEDS: MONTELUKAST 10 MG TAB PO SCH (17:08)
[2019-10-21] MEDS: ENOXAPARIN 40 MG/0.4 ML INJ SUB-Q SCH (22:43)
[2019-10-22] MEDS: ARFORMOTEROL 15 MCG/2 ML NEBU IH SCH ×2 (08:20→21:22)
[2019-10-22] MEDS: BUDESONIDE 0.5 MG/2 ML NEBU IH SCH ×2 (08:20→21:22)
[2019-10-22] MEDS: ASPIRIN EC 325 MG TAB PO SCH (10:12)
[2019-10-22] MEDS: LOSARTAN 25 MG TAB PO SCH (10:12)
[2019-10-22] MEDS: MONTELUKAST 10 MG TAB PO SCH (17:05)
[2019-10-22] MEDS: LATANOPROST 0.005% OPHTH SOLN 2.5 ML OU SCH (17:07)
[2019-10-22] MEDS: ENOXAPARIN 40 MG/0.4 ML INJ SUB-Q SCH (22:13)
[2019-10-23 07:29] LABS: Hemoglobin 13.3 gm/dl (11.8-15.2); Mean Corpuscular HGB Conc 32 % (32-34); Mean Corpuscular Volume 76 fl (84-94); Red Blood Count 5.52 M/mm3 (3.65-5.03); Red Cell Distribution Width 15.3 % (13.2-15.2)
[2019-10-23] MEDS: ARFORMOTEROL 15 MCG/2 ML NEBU IH SCH ×2 (07:58→21:09)
[2019-10-23] MEDS: BUDESONIDE 0.5 MG/2 ML NEBU IH SCH ×2 (07:58→21:09)
[2019-10-23 08:35] LABS: Platelet Count 176 K/mm3 (140-440)
[2019-10-23] MEDS: LOSARTAN 25 MG TAB PO SCH (10:00)
[2019-10-23] MEDS: ASPIRIN EC 325 MG TAB PO SCH (10:00)
--- NOTE | 2019-10-23 12:04 | Progress Note ---
Subjective Date of service: 10/23/19 Principal diagnosis: CVA with right hemiparesis Interval history: Patient was found down on the floor for approximately 2 days and was brought to the ER. He had slurred speech along with right-sided weakness. CT head showed no acute changes but did show chronic infarcts as well as notable enlargements of the lacrimal glands and parotid gland. MRI brain showed subacute infarct in the maryjo. Echocardiogram showed mild left ventricular diastolic dysfunction and an EF of 55%. CTA neck showed no acute abnormalities but did notate the parotid gland abnormalities. CTA head also noted the enlarged lacrimal glands, bilateral parotid lesions with the largest on the left, incidental development of venous anomaly on the left inferior frontal lobe, and a right superior ophthalmic vein dilation. Otherwise [place] and MCA were normal. Radiologist opined the lesions in the parotid and lacrimal glands could be benign however could also be worrisome for lymphoma. Pelvic x-ray showed mild degenerative changes but no acute fracture. Heme-onc consult was obtained and he opined that the enlarged lacrimal gland and parotid glands could also be due to a rheumatologic issue. At any rate and ENT follow-up as an outpatient would be needed for further diagnostic biopsies. He also evaluated the patient for elevated hemoglobin hematocrit. Iron was given and the patient was also referred for outpatient follow-up. Neurology was also consulted and agreed with the findings above however also mentioned that the bitemporal atrophy could point to a level of dementia in the patient. Patient was start on secondary stroke prevention. Hyperkalemia was treated with Kayexalate and did resolve. Patient was given IV fluids for rhabdomyolysis and total CK was still elevated at 291 at last check. Platelets consistently decreased during his admission and Lovenox was held due to platelets of 139. At this point the patient continues to be high risk for further complications including bleeding risk, recurrent stroke, unknown lacrimal and parotid gland disease, venous malformation and elevated CK. Will need to monitor the patient closely along with labs and make adjustments accordingly. Patient also high risk due to not being on any blood pressure medication at the time of discharge with ongoing blood pressure issues and a total of 3 blood pressure medications prior to admission. Interval History: Patient is participating in therapy and making reasonable progress. Taking rest breaks as needed. +BM. Afebrile. Denies palpitations, dyspnea, cough, N/V. CVA with right hemiparesis: Monitor for neuro decline, post stroke depression, cognitive deficits, seizure, worsening dysphagia, shoulder hand syndrome, sensory deficits, spasticity, bowel/bladder deficits, sleep disturbance, vision deficits and DVT. Patient does have a complaint of double vision, did not complain of this before however does state that this is been present along with some dizziness since he fell initially. Dysarthria: Continue BARREL RAISER HELPER to improve ability to speak clearly by strengthening and improving control of muscles, improving breath support and slowing rate of speech. Dysphagia: Continue current diet. BARREL RAISER HELPER to monitor and advance diet as able, and perform FEES, MBSS or EStim as needed. Hypertension: Continue on increased dose of ARB. Monitor for improvement. BP not being taken Q4h. Discussed with nursing. Glaucoma: continue medications. Will need follow up with [facility] COPD: Continue formulary substituted inhalers. No shortness of breath currently. Monitor for need to increase medications are supplemental oxygen. Chest x-ray as needed Osteoarthritis: Pain improved with Tylenol currently. Continue to monitor. Has Tylenol for symptomatic relief. Mild to moderate degenerative changes on x-ray previously seen. Modalities as needed Rhabdomyolysis: Total CK has normalized at 138. Renal function doing well. Continue to monitor but this is likely resolved. Thrombocytopenia: improved, restart Lovenox. Monitor Parotid and lacrimal gland abnormalities: Continue to monitor. Patient will need outpatient follow-up with ENT and heme-onc. With new information obtained from the brother will obtain records from [facility]. Awaiting contact All records, vitals, labs and medications were reviewed. No other issues per patient, nursing or therapy. Objective - Exam Narrative Exam: MUSCULOSKELETAL SPECIALTY EXAM CONSTITUTIONAL: Well developed, well nourished, appropriately groomed. RIGHT hand dominant. HEENT: Right eyelid eversion on the inferior aspect. Red and irritated looking. Left eye less red and irritated appearance Quarter sized structure just anterior to the left ear, nontender to palpation, freely mobile. Right eye slight medial gaze preference, however extraocular eye movements full and intact RESPIRATORY: Clear to auscultation bilaterally, distant lung sounds, no increased work of breathing CARDIOVASCULAR: Regular Rate/ Rhythm, no swelling, edema or tenderness in BUE or BLE. All extremities warm. GI: + bowel sounds, soft, NTTP, nondistended. INTEGUMENTARY: Normal, no lesion, rash, masses or bruising noted in extremities. MUSCULOSKELETAL: BUE and BLE normal without defect, crepitus, subluxation, effusion, arthritic changes or TTP. R 3 /5 L 4+ /5 ROM reduced on right Tone reduced on right NEURO: CN V : Facial sensation impaired on right CN VII : Right facial droop CN XII : Tongue protrudes slightly right Sensation intact in all extremities without extinction. No tremor noted in 4 extremities. Naming and repetition intact. Follows 2 step commands. Aphasia not appreciated Dysarthria present Dysphagia present Neglect not appreciated POSTURE and GAIT: Sitting posture good. Loss of balance when walking. Able to ambulate with a rolling walker fairly well at this point, but still has noticeable issues with guidance of walker and progression of right foot without dragging. PSYCH: Alert, oriented x3, affect appears euthymic. Insight appears intact. - Constitutional Vitals: Vital Signs - 12hr 10/23/19 10/23/19 10/23/19 03:45 07:20 07:59 Temperature 98.4 F 98.6 F Pulse Rate 56 L 60 Pulse Rate [ 61 Anterior Bilateral Throughout] Respiratory 16 20 Rate Respiratory 18 Rate [Anterior Bilateral Throughout] Blood Pressure 133/71 139/80 O2 Sat by Pulse 93 96 Oximetry - Allied health notes Allied health notes reviewed: nursing, PT, ST, OT - Labs CBC & Chem 7: 10/23/19 07:02 10/20/19 06:29 Labs: Laboratory Results - last 72 hr 10/23/19 07:02 WBC 5.1 RBC 5.52 H Hgb 13.3 Hct 42.0 MCV 76 L MCH 24 L MCHC 32 RDW 15.3 H Plt Count 176 Assessment and Plan CVA with right hemiparesis: Continue Secondary Stroke Prevention (Antithrombotic, Statin (Goal LDL-C <70), BP control (Goal <140/90), GLU control (Goal A1c <7), and lifestyle modification). Monitor for recurrent stroke or post-stroke recrudescence. Continue neuromotor therapy as above. Family training when available. Monitor for post stroke depression, cognitive deficits, seizure, dysphagia, aphasia, shoulder hand syndrome, sensory deficits, spasticity, bowel/bladder deficits, sleep disturbance, vision deficits and DVT. Prognosis for recovery and Secondary Stroke Prevention discussed. Follow up with Neurology. No driving until cleared by Neurologist. Diplopia: Slight medial deviation of left eye resulting in diplopia as well as a sense of dizziness at times. Continue to work on scanning to improve adaptive strategies. Unfortunately we do not have ophthalmology or neuro optometry available at the hospital. Patient will need to follow-up with [facility] at discharge. Dysarthria: Continue BARREL RAISER HELPER to improve ability to speak clearly by strengthening and improving control of muscles, improving breath support and slowing rate of speech. Dysphagia: Continue current diet. BARREL RAISER HELPER to monitor and advance diet as able, and perform FEES, MBSS or EStim as needed. Hypertension: Continue medication. Monitor blood pressure. Adjust medications as needed for normotension. Hold for hypotension. Restart home losartan at lower dose. Patient was previously on losartan, amlodipine, clonidine. Glaucoma: Restart latanoprost. COPD: Restart montelukast and inhalers. Patient previously on Symbicort 160/45 at home will substitute per our formulary here. Monitor along with respiratory therapy. Osteoarthritis: Tylenol for pain relief. X-rays reviewed and show mild degenerative changes in the right hip which is where the patient predominately has pain. Rhabdomyolysis: Appears resolved Thrombocytopenia Improved, monitor. Consider heme-onc consult if needed. Parotid and lacrimal gland abnormalities: Continue to monitor. Patient will need outpatient follow-up with ENT. Apparently this is a known issue and was treated previously at [facility]. Will attempt to request records ADL dysfunction: OT will work on improving ability to perform ADLs (including assistive devices) to increase independence and decrease caregiver burden and improve functional transfers and mobility training. Difficulty walking: PT will work on gait training and proper use of assistive devices and advance as appropriate to use of stairs and outside ambulation on uneven surfaces. Unsteadiness on feet: PT will work on improving static and dynamic sitting and standing balance as well as proper use of assistive devices to decrease risk of falls. Abnormality of gait: PT will work to improve safety and efficiency of gait through neuromotor training and gait training along with instruction on proper use of assistive devices. Muscle weakness: PT & OT will work on strengthening exercises to improve functional strength including mixture of closed and open kinetic chain exercises. Debility: PT & OT will work on improving overall functional status to improve participation with ADLs, mobility and social involvement. Fatigue: PT & OT will work on improving endurance through aerobic exercises and therapeutic activity while monitoring patients tolerance for activity and vital signs as needed. DVT ppx: Lovenox - On hold due to thrombocytopenia, look to restart in next few days if platelets improve. Pain: Continue physical modalities in therapy and pain medications as needed to achieve functional pain control. Sleep: Monitor and address as needed. Bowel: Monitor and address as needed. Appetite: Monitor and address as needed. Discharge planning: Pending therapy progress and care plan meeting. Will continue discussion with therapy team, SW, patient and family. Restrictions/ Precautions: Falls WB status: FWB Functional Hx: ADLs: Independent Cognition: Independent Mobility: Cane Barriers to Discharge: Decreased mobility and ability to perform self care, balance deficits, weakness Estimated Length of Stay: 1421 days Discharge Destination: Home with family Versus home alone, may be able to go back to [place] near family
[2019-10-23] MEDS: MONTELUKAST 10 MG TAB PO SCH (17:21)
[2019-10-23] MEDS: LATANOPROST 0.005% OPHTH SOLN 2.5 ML OU SCH (17:21)
[2019-10-23] MEDS: ENOXAPARIN 40 MG/0.4 ML INJ SUB-Q SCH (21:59)
[2019-10-24] MEDS: BUDESONIDE 0.5 MG/2 ML NEBU IH SCH ×2 (09:48→19:59)
[2019-10-24] MEDS: ARFORMOTEROL 15 MCG/2 ML NEBU IH SCH ×2 (09:48→19:59)
[2019-10-24] MEDS: ASPIRIN EC 325 MG TAB PO SCH (11:46)
[2019-10-24] MEDS: LOSARTAN 25 MG TAB PO SCH (11:47)
--- NOTE | 2019-10-24 12:00 | Progress Note ---
Subjective Date of service: 10/24/19 Principal diagnosis: CVA with right hemiparesis Interval history: Patient was found down on the floor for approximately 2 days and was brought to the ER. He had slurred speech along with right-sided weakness. CT head showed no acute changes but did show chronic infarcts as well as notable enlargements of the lacrimal glands and parotid gland. MRI brain showed subacute infarct in the maryjo. Echocardiogram showed mild left ventricular diastolic dysfunction and an EF of 55%. CTA neck showed no acute abnormalities but did notate the parotid gland abnormalities. CTA head also noted the enlarged lacrimal glands, bilateral parotid lesions with the largest on the left, incidental development of venous anomaly on the left inferior frontal lobe, and a right superior ophthalmic vein dilation. Otherwise [place] and MCA were normal. Radiologist opined the lesions in the parotid and lacrimal glands could be benign however could also be worrisome for lymphoma. Pelvic x-ray showed mild degenerative changes but no acute fracture. Heme-onc consult was obtained and he opined that the enlarged lacrimal gland and parotid glands could also be due to a rheumatologic issue. At any rate and ENT follow-up as an outpatient would be needed for further diagnostic biopsies. He also evaluated the patient for elevated hemoglobin hematocrit. Iron was given and the patient was also referred for outpatient follow-up. Neurology was also consulted and agreed with the findings above however also mentioned that the bitemporal atrophy could point to a level of dementia in the patient. Patient was start on secondary stroke prevention. Hyperkalemia was treated with Kayexalate and did resolve. Patient was given IV fluids for rhabdomyolysis and total CK was still elevated at 291 at last check. Platelets consistently decreased during his admission and Lovenox was held due to platelets of 139. At this point the patient continues to be high risk for further complications including bleeding risk, recurrent stroke, unknown lacrimal and parotid gland disease, venous malformation and elevated CK. Will need to monitor the patient closely along with labs and make adjustments accordingly. Patient also high risk due to not being on any blood pressure medication at the time of discharge with ongoing blood pressure issues and a total of 3 blood pressure medications prior to admission. Interval History: Patient is participating in therapy and making reasonable progress. Taking rest breaks as needed. +BM. Afebrile. Denies palpitations, dyspnea, cough, N/V. Attempting to utilize toilet and urinal versus condom cath. CVA with right hemiparesis: Monitor for neuro decline, post stroke depression, cognitive deficits, seizure, worsening dysphagia, shoulder hand syndrome, sensory deficits, spasticity, bowel/bladder deficits, sleep disturbance, vision deficits and DVT. Dysarthria: Continue MAIL PROCESSING ASSOCIATE to improve ability to speak clearly by strengthening and improving control of muscles, improving breath support and slowing rate of speech. Diplopia: Continue to work with patient to improve scanning and ability to strengthen right eye. Follow-up with ophthalmology Dysphagia: Continue current diet. MAIL PROCESSING ASSOCIATE to monitor and advance diet as able, and perform FEES, MBSS or EStim as needed. Hypertension: Continue on increased dose of ARB. Monitor for improvement. BP not being taken Q4h. Discussed with nursing. Glaucoma: continue medications. Will need follow up with gizzard skin remover COPD: Continue formulary substituted inhalers. No shortness of breath currently. Monitor for need to increase medications are supplemental oxygen. Chest x-ray as needed Osteoarthritis: Pain improved with Tylenol currently. Continue to monitor. Has Tylenol for symptomatic relief. Mild to moderate degenerative changes on x-ray previously seen. Modalities as needed Rhabdomyolysis: Total CK has normalized at 138. Renal function doing well. Continue to monitor but this is likely resolved. Thrombocytopenia: improved, restart Lovenox. Monitor Parotid and lacrimal gland abnormalities: Continue to monitor. Patient will need outpatient follow-up with ENT and heme-onc. With new information obtained from the brother will obtain records from [facility]. Awaiting contact All records, vitals, labs and medications were reviewed. No other issues per patient, nursing or therapy. Objective - Exam Narrative Exam: MUSCULOSKELETAL SPECIALTY EXAM CONSTITUTIONAL: Well developed, well nourished, appropriately groomed. RIGHT hand dominant. HEENT: Right eyelid eversion on the inferior aspect. Red and irritated looking. Left eye less red and irritated appearance Quarter sized structure just anterior to the left ear, nontender to palpation, freely mobile. Right eye slight medial gaze preference, however extraocular eye movements full and intact RESPIRATORY: Clear to auscultation bilaterally, distant lung sounds, no increased work of breathing CARDIOVASCULAR: Regular Rate/ Rhythm, no swelling, edema or tenderness in BUE or BLE. All extremities warm. GI: + bowel sounds, soft, NTTP, nondistended. INTEGUMENTARY: Normal, no lesion, rash, masses or bruising noted in extremities. MUSCULOSKELETAL: BUE and BLE normal without defect, crepitus, subluxation, effusion, arthritic changes or TTP. R 3 /5 L 4+ /5 ROM reduced on right Tone reduced on right NEURO: CN V : Facial sensation impaired on right CN VII : Right facial droop CN XII : Tongue protrudes slightly right Sensation intact in all extremities without extinction. No tremor noted in 4 extremities. Naming and repetition intact. Follows 2 step commands. Aphasia not appreciated Dysarthria present Dysphagia present Neglect not appreciated POSTURE and GAIT: Sitting posture good. Loss of balance when walking. Able to ambulate with a rolling walker fairly well at this point, but still has noticeable issues with guidance of walker and progression of right foot without dragging. PSYCH: Alert, oriented x3, affect appears euthymic. Insight appears intact. - Constitutional Vitals: Vital Signs - 12hr 10/24/19 10/24/19 10/24/19 03:28 08:49 09:48 Temperature 98.5 F 99.3 F Pulse Rate 68 71 Pulse Rate [ 79 Anterior Bilateral Throughout] Respiratory 18 16 Rate Respiratory 18 Rate [Anterior Bilateral Throughout] Blood Pressure 148/81 162/82 O2 Sat by Pulse 96 96 Oximetry - Allied health notes Allied health notes reviewed: nursing, PT, ST, OT, RT - Labs CBC & Chem 7: 10/23/19 07:02 10/20/19 06:29 Labs: Laboratory Results - last 72 hr 10/23/19 07:02 WBC 5.1 RBC 5.52 H Hgb 13.3 Hct 42.0 MCV 76 L MCH 24 L MCHC 32 RDW 15.3 H Plt Count 176 Assessment and Plan CVA with right hemiparesis: Continue Secondary Stroke Prevention (Antithrombotic, Statin (Goal LDL-C <70), BP control (Goal <140/90), GLU control (Goal A1c <7), and lifestyle modification). Monitor for recurrent stroke or post-stroke recrudescence. Continue neuromotor therapy as above. Family training when available. Monitor for post stroke depression, cognitive deficits, seizure, dysphagia, aph francy, shoulder hand syndrome, sensory deficits, spasticity, bowel/bladder deficits, sleep disturbance, vision deficits and DVT. Prognosis for recovery and Secondary Stroke Prevention discussed. Follow up with Neurology. No driving until cleared by Neurologist. Diplopia: Slight medial deviation of right eye resulting in diplopia as well as a sense of dizziness at times. Continue to work on scanning to improve adaptive strategies. Unfortunately we do not have ophthalmology or neuro optometry available at the hospital. Patient will need to follow-up with gizzard skin remover at discharge. Dysarthria: Continue MAIL PROCESSING ASSOCIATE to improve ability to speak clearly by strengthening and improving control of muscles, improving breath support and slowing rate of speech. Dysphagia: Continue current diet. MAIL PROCESSING ASSOCIATE to monitor and advance diet as able, and perform FEES, MBSS or EStim as needed. Hypertension: Continue medication. Monitor blood pressure. Adjust medications as needed for normotension. Hold for hypotension. Restart home losartan at lower dose. Patient was previously on losartan, amlodipine, clonidine. Glaucoma: Restart latanoprost. COPD: Restart montelukast and inhalers. Patient previously on Symbicort 160/45 at home will substitute per our formulary here. Monitor along with respiratory therapy. Osteoarthritis: Tylenol for pain relief. X-rays reviewed and show mild degenerative changes in the right hip which is where the patient predominately has pain. Rhabdomyolysis: Appears resolved Thrombocytopenia Improved, monitor. Consider heme-onc consult if needed. Parotid and lacrimal gland abnormalities: Continue to monitor. Patient will need outpatient follow-up with ENT. Apparently this is a known issue and was treated previously at [facility]. Will attempt to request records ADL dysfunction: OT will work on improving ability to perform ADLs (including a ssistive devices) to increase independence and decrease caregiver burden and improve functional transfers and mobility training. Difficulty walking: PT will work on gait training and proper use of assistive devices and advance as appropriate to use of stairs and outside ambulation on uneven surfaces. Unsteadiness on feet: PT will work on improving static and dynamic sitting and standing balance as well as proper use of assistive devices to decrease risk of falls. Abnormality of gait: PT will work to improve safety and efficiency of gait through neuromotor training and gait training along with instruction on proper use of assistive devices. Muscle weakness: PT & OT will work on strengthening exercises to improve functional strength including mixture of closed and open kinetic chain exer cises. Debility: PT & OT will work on improving overall functional status to improve participation with ADLs, mobility and social involvement. Fatigue: PT & OT will work on improving endurance through aerobic exercises and therapeutic activity while monitoring patients tolerance for activity and vital signs as needed. DVT ppx: Lovenox - On hold due to thrombocytopenia, look to restart in next few days if platelets improve. Pain: Continue physical modalities in therapy and pain medications as needed to achieve functional pain control. Sleep: Monitor and address as needed. Bowel: Monitor and address as needed. Appetite: Monitor and address as needed. Discharge planning: Pending therapy progress and care plan meeting. Will continue discussion with therapy team, SW, patient and family. Restrictions/ Precautions: Falls WB status: FWB Functional Hx: ADLs: Independent Cognition: Independent Mobility: Cane Barriers to Discharge: Decreased mobility and ability to perform self care, balance deficits, weakness Estimated Length of Stay: 1421 days Discharge Destination: Home with family Versus home alone, may be able to go back to [place] near family
[2019-10-24] MEDS: MONTELUKAST 10 MG TAB PO SCH (18:46)
[2019-10-24] MEDS: LATANOPROST 0.005% OPHTH SOLN 2.5 ML OU SCH (18:47)
[2019-10-24] MEDS: ENOXAPARIN 40 MG/0.4 ML INJ SUB-Q SCH (21:13)
[2019-10-25] MEDS: hydrALAZINE 20 MG/1 ML INJ IV PRN (06:09)
[2019-10-25] MEDS: ASPIRIN EC 325 MG TAB PO SCH (09:10)
[2019-10-25] MEDS: LOSARTAN 25 MG TAB PO SCH (09:10)
[2019-10-25] MEDS: ARFORMOTEROL 15 MCG/2 ML NEBU IH SCH ×2 (09:25→22:05)
[2019-10-25] MEDS: BUDESONIDE 0.5 MG/2 ML NEBU IH SCH ×2 (09:25→22:04)
--- NOTE | 2019-10-25 15:17 | Progress Note ---
Subjective Date of service: 10/25/19 Principal diagnosis: CVA with right hemiparesis Interval history: Patient was found down on the floor for approximately 2 days and was brought to the ER. He had slurred speech along with right-sided weakness. CT head showed no acute changes but did show chronic infarcts as well as notable enlargements of the lacrimal glands and parotid gland. MRI brain showed subacute infarct in the maryjo. Echocardiogram showed mild left ventricular diastolic dysfunction and an EF of 55%. CTA neck showed no acute abnormalities but did notate the parotid gland abnormalities. CTA head also noted the enlarged lacrimal glands, bilateral parotid lesions with the largest on the left, incidental development of venous anomaly on the left inferior frontal lobe, and a right superior ophthalmic vein dilation. Otherwise [place] and MCA were normal. Radiologist opined the lesions in the parotid and lacrimal glands could be benign however could also be worrisome for lymphoma. Pelvic x-ray showed mild degenerative changes but no acute fracture. Heme-onc consult was obtained and he opined that the enlarged lacrimal gland and parotid glands could also be due to a rheumatologic issue. At any rate and ENT follow-up as an outpatient would be needed for further diagnostic biopsies. He also evaluated the patient for elevated hemoglobin hematocrit. Iron was given and the patient was also referred for outpatient follow-up. Neurology was also consulted and agreed with the findings above however also mentioned that the bitemporal atrophy could point to a level of dementia in the patient. Patient was start on secondary stroke prevention. Hyperkalemia was treated with Kayexalate and did resolve. Patient was given IV fluids for rhabdomyolysis and total CK was still elevated at 291 at last check. Platelets consistently decreased during his admission and Lovenox was held due to platelets of 139. At this point the patient continues to be high risk for further complications including bleeding risk, recurrent stroke, unknown lacrimal and parotid gland disease, venous malformation and elevated CK. Will need to monitor the patient closely along with labs and make adjustments accordingly. Patient also high risk due to not being on any blood pressure medication at the time of discharge with ongoing blood pressure issues and a total of 3 blood pressure medications prior to admission. Interval History: Patient is participating in therapy and making reasonable progress. Taking rest breaks as needed. +BM. Afebrile. Denies palpitations, dyspnea, cough, N/V. CVA with right hemiparesis: Monitor for neuro decline, post stroke depression, cognitive deficits, seizure, worsening dysphagia, shoulder hand syndrome, sensory deficits, spasticity, bowel/bladder deficits, sleep disturbance, vision deficits and DVT. Dysarthria: Continue SHIELD INSTALLER to improve ability to speak clearly by strengthening and improving control of muscles, improving breath support and slowing rate of speech. Diplopia: Continue to work with patient to improve scanning and ability to strengthen right eye. Follow-up with ophthalmology. Stable Dysphagia: Continue current diet. SHIELD INSTALLER to monitor and advance diet as able, and perform FEES, MBSS or EStim as needed. Hypertension: Blood pressure elevated, required as needed dose of hydralazine. Continue on increased dose of ARB and monitor for changes, if this does not improve will consider increasing dose. Monitor for improvement. Glaucoma: continue medications. Will need follow up with county agent COPD: Continue formulary substituted inhalers. No shortness of breath currently. Monitor for need to increase medications are supplemental oxygen. Chest x-ray as needed Osteoarthritis: Pain improved with Tylenol currently. Continue to monitor. Has Tylenol for symptomatic relief. Mild to moderate degenerative changes on x-ray previously seen. Modalities as needed Rhabdomyolysis: Total CK has normalized at 138. Renal function doing well. Continue to monitor but this is likely resolved. Thrombocytopenia: improved, restart Lovenox. Monitor Parotid and lacrimal gland abnormalities: Continue to monitor. Patient will need outpatient follow-up with ENT and heme-onc. With new information obtained from the brother will obtain records from [facility]. Still have not heard back from outside hospital. All records, vitals, labs and medications were reviewed. No other issues per p atient, nursing or therapy. Objective - Exam Narrative Exam: MUSCULOSKELETAL SPECIALTY EXAM CONSTITUTIONAL: Well developed, well nourished, appropriately groomed. RIGHT hand dominant. HEENT: Right eyelid eversion on the inferior aspect. Red and irritated looking. Left eye less red and irritated appearance Quarter sized structure just anterior to the left ear, nontender to palpation, mobile. Right eye slight medial gaze preference, however extraocular eye movements full and intact RESPIRATORY: Clear to auscultation bilaterally, distant lung sounds, no increased work of breathing CARDIOVASCULAR: Regular Rate/ Rhythm, no swelling, edema or tenderness in BUE or BLE. All extremities warm. GI: + bowel sounds, soft, NTTP, nondistended. INTEGUMENTARY: Normal, no lesion, rash, masses or bruising noted in extremities. MUSCULOSKELETAL: BUE and BLE normal without defect, crepitus, subluxation, effusion, arthritic changes or TTP. R 3 /5 L 4+ /5 ROM reduced on right Tone reduced on right NEURO: CN V : Facial sensation impaired on right CN VII : Right facial droop CN XII : Tongue protrudes slightly right Sensation intact in all extremities without extinction. No tremor noted in 4 extremities. Naming and repetition intact. Follows 2 step commands. Aphasia not appreciated Dysarthria present Dysphagia present Neglect not appreciated POSTURE and GAIT: Sitting posture good. Loss of balance when walking. Able to ambulate with a rolling walker fairly well at this point, but still has noticeable issues with guidance of walker and progression of right foot without dragging. PSYCH: Alert, oriented x3, affect appears euthymic. Insight appears intact. - Constitutional Vitals: Vital Signs - 12hr 10/25/19 10/25/19 10/25/19 05:04 06:09 08:20 Temperature 98.1 F 98.4 F Pulse Rate 56 L 56 L 73 Respiratory 20 18 Rate Blood Pressure 168/73 173/86 148/83 O2 Sat by Pulse 96 97 Oximetry 10/25/19 10/25/19 09:10 11:15 Temperature 98.5 F Pulse Rate 56 L 70 Respiratory 18 Rate Blood Pressure 173/86 154/95 O2 Sat by Pulse 97 Oximetry - Allied health notes Allied health notes reviewed: nursing, PT, ST, OT - Labs CBC & Chem 7: 10/23/19 07:02 10/20/19 06:29 Labs: Laboratory Results - last 72 hr 10/23/19 07:02 WBC 5.1 RBC 5.52 H Hgb 13.3 Hct 42.0 MCV 76 L MCH 24 L MCHC 32 RDW 15.3 H Plt Count 176 Assessment and Plan CVA with right hemiparesis: Continue Secondary Stroke Prevention (Antithrombot ic, Statin (Goal LDL-C <70), BP control (Goal <140/90), GLU control (Goal A1c <7), and lifestyle modification). Monitor for recurrent stroke or post-stroke recrudescence. Continue neuromotor therapy as above. Family training when available. Monitor for post stroke depression, cognitive deficits, seizure, dysphagia, aphasia, shoulder hand syndrome, sensory deficits, spasticity, bowel/bladder deficits, sleep disturbance, vision deficits and DVT. Prognosis for recovery and Secondary Stroke Prevention discussed. Follow up with Neurology. No driving until cleared by Neurologist. Diplopia: Slight medial deviation of right eye resulting in diplopia as well as a sense of dizziness at times. Continue to work on scanning to improve adaptive strategies. Unfortunately we do not have ophthalmology or neuro optometry available at the hospital. Patient will need to follow-up with county agent at discharge. Dysarthria: Continue SHIELD INSTALLER to improve ability to speak clearly by strengthening and improving control of muscles, improving breath support and slowing rate of speech. Dysphagia: Continue current diet. SHIELD INSTALLER to monitor and advance diet as able, and perform FEES, MBSS or EStim as needed. Hypertension: Continue medication. Monitor blood pressure. Adjust medications as needed for normotension. Hold for hypotension. Patient was previously on losartan, amlodipine, clonidine. Glaucoma: Restart latanoprost. COPD: Restart montelukast and inhalers. Patient previously on Symbicort 160/45 at home will substitute per our formulary here. Monitor along with respiratory therapy. Osteoarthritis: Tylenol for pain relief. X-rays reviewed and show mild degenerative changes in the right hip which is where the patient predominately has pain. Rhabdomyolysis: Appears resolved Thrombocytopenia Improved, monitor. Consider heme-onc consult if needed. Parotid and lacrimal gland abnormalities: Continue to monitor. Patient will need outpatient follow-up with ENT. Apparently this is a known issue and was treated previously at [facility]. Will attempt to request records ADL dysfunction: OT will work on improving ability to perform ADLs (including assistive devices) to increase independence and decrease caregiver burden and improve functional transfers and mobility training. Difficulty walking: PT will work on gait training and proper use of assistive devices and advance as appropriate to use of stairs and outside ambulation on uneven surfaces. Unsteadiness on feet: PT will work on improving static and dynamic sitting and standing balance as well as proper use of assistive devices to decrease risk of falls. Abnormality of gait: PT will work to improve safety and efficiency of gait through neuromotor training and gait training along with instruction on proper use of assistive devices. Muscle weakness: PT & OT will work on strengthening exercises to improve functional strength including mixture of closed and open kinetic chain exercises. Debility: PT & OT will work on improving overall functional status to improve participation with ADLs, mobility and social involvement. Fatigue: PT & OT will work on improving endurance through aerobic exercises and therapeutic activity while monitoring patients tolerance for activity and vital signs as needed. DVT ppx: Lovenox - On hold due to thrombocytopenia, look to restart in next few days if platelets improve. Pain: Continue physical modalities in therapy and pain medications as needed to achieve functional pain control. Sleep: Monitor and address as needed. Bowel: Monitor and address as needed. Appetite: Monitor and address as needed. Discharge planning: Pending therapy progress and care plan meeting. Will continue discussion with therapy team, SW, patient and family. Restrictions/ Precautions: Falls WB status: FWB Functional Hx: ADLs: Independent Cognition: Independent Mobility: Cane Barriers to Discharge: Decreased mobility and ability to perform self care, balance deficits, weakness Estimated Length of Stay: 1421 days Discharge Destination: Home with family Versus home alone, may be able to go back to [place] near family
[2019-10-25] MEDS: LATANOPROST 0.005% OPHTH SOLN 2.5 ML OU SCH (18:13)
[2019-10-25] MEDS: MONTELUKAST 10 MG TAB PO SCH (18:14)
[2019-10-25] MEDS: ENOXAPARIN 40 MG/0.4 ML INJ SUB-Q SCH (22:27)
[2019-10-26] MEDS: BUDESONIDE 0.5 MG/2 ML NEBU IH SCH ×2 (08:50→22:14)
[2019-10-26] MEDS: ARFORMOTEROL 15 MCG/2 ML NEBU IH SCH ×2 (08:50→22:14)
--- NOTE | 2019-10-26 11:30 | Progress Note ---
Subjective Date of service: 10/26/19 Principal diagnosis: CVA with right hemiparesis Interval history: Patient was found down on the floor for approximately 2 days and was brought to the ER. He had slurred speech along with right-sided weakness. CT head showed no acute changes but did show chronic infarcts as well as notable enlargements of the lacrimal glands and parotid gland. MRI brain showed subacute infarct in the maryjo. Echocardiogram showed mild left ventricular diastolic dysfunction and an EF of 55%. CTA neck showed no acute abnormalities but did notate the parotid gland abnormalities. CTA head also noted the enlarged lacrimal glands, bilateral parotid lesions with the largest on the left, incidental development of venous anomaly on the left inferior frontal lobe, and a right superior ophthalmic vein dilation. Otherwise [place] and MCA were normal. Radiologist opined the lesions in the parotid and lacrimal glands could be benign however could also be worrisome for lymphoma. Pelvic x-ray showed mild degenerative changes but no acute fracture. Heme-onc consult was obtained and he opined that the enlarged lacrimal gland and parotid glands could also be due to a rheumatologic issue. At any rate and ENT follow-up as an outpatient would be needed for further diagnostic biopsies. He also evaluated the patient for elevated hemoglobin hematocrit. Iron was given and the patient was also referred for outpatient follow-up. Neurology was also consulted and agreed with the findings above however also mentioned that the bitemporal atrophy could point to a level of dementia in the patient. Patient was start on secondary stroke prevention. Hyperkalemia was treated with Kayexalate and did resolve. Patient was given IV fluids for rhabdomyolysis and total CK was still elevated at 291 at last check. Platelets consistently decreased during his admission and Lovenox was held due to platelets of 139. At this point the patient continues to be high risk for further complications including bleeding risk, recurrent stroke, unknown lacrimal and parotid gland disease, venous malformation and elevated CK. Will need to monitor the patient closely along with labs and make adjustments accordingly. Patient also high risk due to not being on any blood pressure medication at the time of discharge with ongoing blood pressure issues and a total of 3 blood pressure medications prior to admission. Interval History: Patient is participating in therapy and making reasonable progress. Taking rest breaks as needed. +BM. Afebrile. Denies palpitations, dyspnea, cough, N/V. CVA with right hemiparesis: Monitor for neuro decline, post stroke depression, cognitive deficits, seizure, worsening dysphagia, shoulder hand syndrome, sensory deficits, spasticity, bowel/bladder deficits, sleep disturbance, vision deficits and DVT. Dysarthria: Continue VIDEO CLERK to improve ability to speak clearly by strengthening and improving control of muscles, improving breath support and slowing rate of speech. Diplopia: Continue to work with patient to improve scanning and ability to strengthen right eye. Follow-up with ophthalmology. Stable Dysphagia: Continue current diet. VIDEO CLERK to monitor and advance diet as able, and perform FEES, MBSS or EStim as needed. Hypertension: Blood pressure elevated, required as needed dose of hydralazine. Continue on increased dose of ARB and monitor for changes, if this does not improve will consider increasing dose. Monitor for improvement. Glaucoma: continue medications. Will need follow up with meat soaker COPD: Continue formulary substituted inhalers. No shortness of breath currently. Monitor for need to increase medications are supplemental oxygen. Chest x-ray as needed Osteoarthritis: Pain improved with Tylenol currently. Continue to monitor. Has Tylenol for symptomatic relief. Mild to moderate degenerative changes on x-ray previously seen. Modalities as needed Rhabdomyolysis: Total CK has normalized at 138. Renal function doing well. Continue to monitor but this is likely resolved. Thrombocytopenia: improved, restart Lovenox. Monitor Parotid and lacrimal gland abnormalities: Continue to monitor. Patient will need outpatient follow-up with ENT and heme-onc. With new information obtained from the brother will obtain records from [facility]. Still have not heard back from outside hospital. All records, vitals, labs and medications were reviewed. No other issues per p atient, nursing or therapy. Patient discussed in team conference. Making good progress with therapy overall however still having loss of balance especially when moving towards the right- hand side. Poor carryover and requires multiple cues in order to avoid transitions to the right side and/or if he does this to make sure that his right leg is in the proper position. Speech therapy notes that the patient is not performing some of their task somewhat by choice as he says he is laid back typically. Have discussed discharge with the patient which is pending for next week. Patient's brother has arranged for him to move into the home in [place] however now the patient is second guessing this. We will continue to work with therapy to attempt to improve his safety in order to provide for safe transfer home. Patient did state today that he recently got up from his wheelchair went to the bathroom and got back to his wheelchair without falling. Reminded him that he does have frequent loss of balance with therapy when performing these transfers as well as when walking and that he would be safer at this point to contact nursing for assistance transferring to the bathroom. Objective - Exam Narrative Exam: MUSCULOSKELETAL SPECIALTY EXAM CONSTITUTIONAL: Well developed, well nourished, appropriately groomed. RIGHT hand dominant. HEENT: Right eyelid eversion on the inferior aspect. Red and irritated looking. Left eye less red and irritated appearance Quarter sized structure just anterior to the left ear, nontender to palpation, mobile. Right eye slight medial gaze preference, however extraocular eye movements full and intact RESPIRATORY: Clear to auscultation bilaterally, distant lung sounds, no increased work of breathing CARDIOVASCULAR: Regular Rate/ Rhythm, no swelling, edema or tenderness in BUE or BLE. All extremities warm. GI: + bowel sounds, soft, NTTP, nondistended. INTEGUMENTARY: Normal, no lesion, rash, masses or bruising noted in extremities. MUSCULOSKELETAL: BUE and BLE normal without defect, crepitus, subluxation, effusion, arthritic changes or TTP. R 3 /5 L 4+ /5 ROM reduced on right Tone reduced on right NEURO: CN V : Facial sensation impaired on right CN VII : Right facial droop CN XII : Tongue protrudes slightly right Sensation intact in all extremities without extinction. No tremor noted in 4 extremities. Naming and repetition intact. Follows 2 step commands. Aphasia not appreciated Dysarthria present Dysphagia present Neglect not appreciated POSTURE and GAIT: Sitting posture good. Loss of balance when walking. Able to ambulate with a rolling walker fairly well at this point, but still has noticeable issues with guidance of walker and progression of right foot without dragging, still has loss of balance with transfers as well. PSYCH: Alert, oriented x3, affect appears euthymic. Insight appears intact. - Constitutional Vitals: Vital Signs - 12hr 10/26/19 10/26/19 10/26/19 04:36 07:48 08:40 Temperature 97.6 F 98.2 F Pulse Rate 59 L 54 L Pulse Rate [ 60 Anterior Bilateral Throughout] Respiratory 16 18 Rate Respiratory 20 Rate [Anterior Bilateral Throughout] Blood Pressure 148/84 153/82 O2 Sat by Pulse 96 98 Oximetry - Allied health notes Allied health notes reviewed: nursing, PT, ST, OT - Labs CBC & Chem 7: 10/23/19 07:02 10/20/19 06:29 Assessment and Plan CVA with right hemiparesis: Continue Secondary Stroke Prevention (Antithrombotic, Statin (Goal LDL-C <70), BP control (Goal <140/90), GLU control (Goal A1c <7), and lifestyle modification). Monitor for recurrent stroke or post-stroke recrudescence. Continue neuromotor therapy as above. Family training when available. Monitor for post stroke depression, cognitive deficits, seizure, dysphagia, aphasia, shoulder hand syndrome, sensory deficits, spasticity, bowel/bladder deficits, sleep disturbance, vision deficits and DVT. Prognosis for recovery and Secondary Stroke Prevention discussed. Follow up with Neurology. No driving until cleared by Neurologist. Diplopia: Slight medial deviation of right eye resulting in diplopia as well as a sense of dizziness at times. Continue to work on scanning to improve adaptive strategies. Unfortunately we do not have ophthalmology or neuro optometry available at the hospital. Patient will need to follow-up with meat soaker at discharge. Dysarthria: Continue VIDEO CLERK to improve ability to speak clearly by strengthening and improving control of muscles, improving breath support and slowing rate of speech. Dysphagia: Continue current diet. VIDEO CLERK to monitor and advance diet as able, and perform FEES, MBSS or EStim as needed. Hypertension: Continue medication. Monitor blood pressure. Adjust medications as needed for normotension. Hold for hypotension. Patient was previously on losartan, amlodipine, clonidine. Glaucoma: Restart latanoprost. COPD: Restart montelukast and inhalers. Patient previously on Symbicort 160/45 at home will substitute per our formulary here. Monitor along with respiratory therapy. Osteoarthritis: Tylenol for pain relief. X-rays reviewed and show mild degenerative changes in the right hip which is where the patient predominately has pain. Rhabdomyolysis: Appears resolved Thrombocytopenia Improved, monitor. Consider heme-onc consult if needed. Parotid and lacrimal gland abnormalities: Continue to monitor. Patient will n eed outpatient follow-up with ENT. Apparently this is a known issue and was treated previously at [facility]. Will attempt to request records ADL dysfunction: OT will work on improving ability to perform ADLs (including assistive devices) to increase independence and decrease caregiver burden and improve functional transfers and mobility training. Difficulty walking: PT will work on gait training and proper use of assistive devices and advance as appropriate to use of stairs and outside ambulation on uneven surfaces. Unsteadiness on feet: PT will work on improving static and dynamic sitting and standing balance as well as proper use of assistive devices to decrease risk of falls. Abnormality of gait: PT will work to improve safety and efficiency of gait through neuromotor training and gait training along with instruction on proper use of assistive devices. Muscle weakness: PT & OT will work on strengthening exercises to improve functional strength including mixture of closed and open kinetic chain exercises. Debility: PT & OT will work on improving overall functional status to improve participation with ADLs, mobility and social involvement. Fatigue: PT & OT will work on improving endurance through aerobic exercises and therapeutic activity while monitoring patients tolerance for activity and vital signs as needed. DVT ppx: Lovenox - On hold due to thrombocytopenia, look to restart in next few days if platelets improve. Pain: Continue physical modalities in therapy and pain medications as needed to achieve functional pain control. Sleep: Monitor and address as needed. Bowel: Monitor and address as needed. Appetite: Monitor and address as needed. Discharge planning: Pending therapy progress and care plan meeting. Will continue discussion with therapy team, SW, patient and family. Restrictions/ Precautions: Falls WB status: FWB Functional Hx: ADLs: Independent Cognition: Independent Mobility: Cane Barriers to Discharge: Decreased mobility and ability to perform self care, balance deficits, weakness Estimated Length of Stay: 1421 days Discharge Destination: Home with family Versus home alone, may be able to go back to [place] near family, look to discharge next week.
[2019-10-26] MEDS: ASPIRIN EC 325 MG TAB PO SCH (12:17)
[2019-10-26] MEDS ORDERED: LOSARTAN 25 MG TAB ONE (12:26)
[2019-10-26] MEDS: LOSARTAN 50 MG TAB PO SCH (12:44)
[2019-10-26] MEDS: LATANOPROST 0.005% OPHTH SOLN 2.5 ML OU SCH (17:59)
[2019-10-26] MEDS: MONTELUKAST 10 MG TAB PO SCH (18:00)
[2019-10-26] MEDS: LOSARTAN 25 MG TAB PO SCH (20:28)
[2019-10-26] MEDS: ENOXAPARIN 40 MG/0.4 ML INJ SUB-Q SCH (22:32)
[2019-10-26] MEDS: hydrALAZINE 20 MG/1 ML INJ IV PRN (23:22)
[2019-10-27] MEDS: ASPIRIN EC 325 MG TAB PO SCH ×2 (08:26→10:27)
[2019-10-27] MEDS: LOSARTAN 50 MG TAB PO SCH ×2 (08:26→10:27)
[2019-10-27] MEDS: BUDESONIDE 0.5 MG/2 ML NEBU IH SCH ×2 (08:52→22:04)
[2019-10-27] MEDS: ARFORMOTEROL 15 MCG/2 ML NEBU IH SCH ×2 (08:53→22:04)
[2019-10-27] MEDS ORDERED: LOSARTAN 50 MG TAB PO SCH (10:00)
--- NOTE | 2019-10-27 13:38 | Progress Note ---
Subjective Date of service: 10/27/19 Principal diagnosis: CVA with right hemiparesis Interval history: Patient was found down on the floor for approximately 2 days and was brought to the ER. He had slurred speech along with right-sided weakness. CT head showed no acute changes but did show chronic infarcts as well as notable enlargements of the lacrimal glands and parotid gland. MRI brain showed subacute infarct in the maryjo. Echocardiogram showed mild left ventricular diastolic dysfunction and an EF of 55%. CTA neck showed no acute abnormalities but did notate the parotid gland abnormalities. CTA head also noted the enlarged lacrimal glands, bilateral parotid lesions with the largest on the left, incidental development of venous anomaly on the left inferior frontal lobe, and a right superior ophthalmic vein dilation. Otherwise [place] and MCA were normal. Radiologist opined the lesions in the parotid and lacrimal glands could be benign however could also be worrisome for lymphoma. Pelvic x-ray showed mild degenerative changes but no acute fracture. Heme-onc consult was obtained and he opined that the enlarged lacrimal gland and parotid glands could also be due to a rheumatologic issue. At any rate and ENT follow-up as an outpatient would be needed for further diagnostic biopsies. He also evaluated the patient for elevated hemoglobin hematocrit. Iron was given and the patient was also referred for outpatient follow-up. Neurology was also consulted and agreed with the findings above however also mentioned that the bitemporal atrophy could point to a level of dementia in the patient. Patient was start on secondary stroke prevention. Hyperkalemia was treated with Kayexalate and did resolve. Patient was given IV fluids for rhabdomyolysis and total CK was still elevated at 291 at last check. Platelets consistently decreased during his admission and Lovenox was held due to platelets of 139. At this point the patient continues to be high risk for further complications including bleeding risk, recurrent stroke, unknown lacrimal and parotid gland disease, venous malformation and elevated CK. Will need to monitor the patient closely along with labs and make adjustments accordingly. Patient also high risk due to not being on any blood pressure medication at the time of discharge with ongoing blood pressure issues and a total of 3 blood pressure medications prior to admission. Interval History: Patient is participating in therapy and making reasonable progress. Taking rest breaks as needed. +BM. Afebrile. Denies palpitations, dyspnea, cough, N/V. Patient now stating hew does not want to go to [place]. Will make other arrangements. CVA with right hemiparesis: Monitor for neuro decline, post stroke depression, cognitive deficits, seizure, worsening dysphagia, shoulder hand syndrome, sensory deficits, spasticity, bowel/bladder deficits, sleep disturbance, vision deficits and DVT. Dysarthria: Continue CALENDER TENDER to improve ability to speak clearly by strengthening and improving control of muscles, improving breath support and slowing rate of speech. Diplopia: Continue to work with patient to improve scanning and ability to s trengthen right eye. Follow-up with ophthalmology. Stable Dysphagia: Continue current diet. CALENDER TENDER to monitor and advance diet as able, and perform FEES, MBSS or EStim as needed. Hypertension: Blood pressure improved on increased dose of ARB and monitor for changes. Monitor for improvement. Glaucoma: continue medications. Will need follow up with assault amphibious vehicle crewman COPD: Continue formulary substituted inhalers. No shortness of breath currently. Monitor for need to increase medications are supplemental oxygen. Chest x-ray as needed Osteoarthritis: Pain improved with Tylenol currently. Continue to monitor. Has Tylenol for symptomatic relief. Mild to moderate degenerative changes on x-ray previously seen. Modalities as needed Rhabdomyolysis: Total CK has normalized at 138. Renal function doing well. Continue to monitor but this is likely resolved. Thrombocytopenia: improved, restart Lovenox. Monitor Parotid and lacrimal gland abnormalities: Continue to monitor. Patient will need outpatient follow-up with ENT and heme-onc. With new information obtained from the brother will obtain records from [facility]. Still have not heard back from outside hospital. All records, vitals, labs and medications were reviewed. No other issues per patient, nursing or therapy. Objective - Exam Narrative Exam: MUSCULOSKELETAL SPECIALTY EXAM CONSTITUTIONAL: Well developed, well nourished, appropriately groomed. RIGHT hand dominant. HEENT: Right eyelid eversion on the inferior aspect. Red and irritated looking. Left eye less red and irritated appearance Quarter sized structure just anterior to the left ear, nontender to palpation, mobile. Right eye slight medial gaze preference, however extraocular eye movements full and intact RESPIRATORY: Clear to auscultation bilaterally, distant lung sounds, no increased work of breathing CARDIOVASCULAR: Regular Rate/ Rhythm, no swelling, edema or tenderness in BUE or BLE. All extremities warm. GI: + bowel sounds, soft, NTTP, nondistended. INTEGUMENTARY: Normal, no lesion, rash, masses or bruising noted in extremities. MUSCULOSKELETAL: BUE and BLE normal without defect, crepitus, subluxation, effusion, arthritic changes or TTP. R 3 /5 L 4+ /5 ROM reduced on right Tone reduced on right NEURO: CN V : Facial sensation impaired on right CN VII : Right facial droop CN XII : Tongue protrudes slightly right Sensation intact in all extremities without extinction. No tremor noted in 4 extremities. Naming and repetition intact. Follows 2 step commands. Aphasia not appreciated Dysarthria present Dysphagia present Neglect not appreciated POSTURE and GAIT: Sitting posture good. Loss of balance when walking. Able to ambulate with a rolling walker fairly well at this point, but still has noticeable issues with guidance of walker and progression of right foot without dragging, still has loss of balance with transfers as well. PSYCH: Alert, oriented x3, affect appears euthymic. Insight appears intact. - Constitutional Vitals: Vital Signs - 12hr 10/27/19 10/27/19 10/27/19 05:27 07:38 08:26 Temperature 98.2 F 98.4 F Pulse Rate 66 61 61 Pulse Rate [ Anterior Bilateral Throughout] Respiratory 16 18 Rate Respiratory Rate [Anterior Bilateral Throughout] Blood Pressure 137/70 137/78 137/78 O2 Sat by Pulse 96 98 Oximetry 10/27/19 10/27/19 08:53 12:32 Temperature 98.2 F Pulse Rate 64 Pulse Rate [ 71 Anterior Bilateral Throughout] Respiratory 17 Rate Respiratory 18 Rate [Anterior Bilateral Throughout] Blood Pressure 143/83 O2 Sat by Pulse 98 Oximetry - Allied health notes Allied health notes reviewed: nursing, PT, ST, OT - Labs CBC & Chem 7: 10/23/19 07:02 10/20/19 06:29 Assessment and Plan CVA with right hemiparesis: Continue Secondary Stroke Prevention (Antithrombotic, Statin (Goal LDL-C <70), BP control (Goal <140/90), GLU control (Goal A1c <7), and lifestyle modification). Monitor for recurrent stroke or po st-stroke recrudescence. Continue neuromotor therapy as above. Family training when available. Monitor for post stroke depression, cognitive deficits, seizure, dysphagia, aphasia, shoulder hand syndrome, sensory deficits, spasticity, bowel/bladder deficits, sleep disturbance, vision deficits and DVT. Prognosis for recovery and Secondary Stroke Prevention discussed. Follow up with Neurology. No driving until cleared by Neurologist. Diplopia: Slight medial deviation of right eye resulting in diplopia as well as a sense of dizziness at times. Continue to work on scanning to improve adaptive strategies. Unfortunately we do not have ophthalmology or neuro optometry available at the hospital. Patient will need to follow-up with assault amphibious vehicle crewman at discharge. Dysarthria: Continue CALENDER TENDER to improve ability to speak clearly by strengthening and improving control of muscles, improving breath support and slowing rate of speech. Dysphagia: Continue current diet. CALENDER TENDER to monitor and advance diet as able, and perform FEES, MBSS or EStim as needed. Hypertension: Continue medication. Monitor blood pressure. Adjust medications as needed for normotension. Hold for hypotension. Patient was previously on losartan, amlodipine, clonidine. Glaucoma: Restart latanoprost. COPD: Restart montelukast and inhalers. Patient previously on Symbicort 160/45 at home will substitute per our formulary here. Monitor along with respiratory therapy. Osteoarthritis: Tylenol for pain relief. X-rays reviewed and show mild degenerative changes in the right hip which is where the patient predominately has pain. Rhabdomyolysis: Appears resolved Thrombocytopenia Improved, monitor. Consider heme-onc consult if needed. Parotid and lacrimal gland abnormalities: Continue to monitor. Patient will need outpatient follow-up with ENT. Apparently this is a known issue and was treated previously at [facility]. Will attempt to request records ADL dysfunction: OT will work on improving ability to perform ADLs (including assistive devices) to increase independence and decrease caregiver burden and improve functional transfers and mobility training. Difficulty walking: PT will work on gait training and proper use of assistive devices and advance as appropriate to use of stairs and outside ambulation on uneven surfaces. Unsteadiness on feet: PT will work on improving static and dynamic sitting and standing balance as well as proper use of assistive devices to decrease risk of falls. Abnormality of gait: PT will work to improve safety and efficiency of gait through neuromotor training and gait training along with instruction on proper use of assistive devices. Muscle weakness: PT & OT will work on strengthening exercises to improve functional strength including mixture of closed and open kinetic chain exercises. Debility: PT & OT will work on improving overall functional status to improve participation with ADLs, mobility and social involvement. Fatigue: PT & OT will work on improving endurance through aerobic exercises and therapeutic activity while monitoring patients tolerance for activity and vital signs as needed. DVT ppx: Lovenox - On hold due to thrombocytopenia, look to restart in next few days if platelets improve. Pain: Continue physical modalities in therapy and pain medications as needed to achieve functional pain control. Sleep: Monitor and address as needed. Bowel: Monitor and address as needed. Appetite: Monitor and address as needed. Discharge planning: Pending therapy progress and care plan meeting. Will continue discussion with therapy team, SW, patient and family. Restrictions/ Precautions: Falls WB status: FWB Functional Hx: ADLs: Independent Cognition: Independent Mobility: Cane Barriers to Discharge: Decreased mobility and ability to perform self care, balance deficits, weakness Estimated Length of Stay: 1421 days Discharge Destination: Home with family Versus home alone, may be able to go back to [place] near family, look to discharge next week.
[2019-10-27] MEDS: LATANOPROST 0.005% OPHTH SOLN 2.5 ML OU SCH (17:54)
[2019-10-27] MEDS: MONTELUKAST 10 MG TAB PO SCH (17:54)
[2019-10-27] MEDS: ENOXAPARIN 40 MG/0.4 ML INJ SUB-Q SCH (21:20)
[2019-10-28 07:33] LABS: Hematocrit 40.4 % (35.5-45.6); Hemoglobin 13.1 gm/dl (11.8-15.2); Mean Corpuscular HGB Conc 32 % (32-34); Mean Corpuscular Volume 75 fl (84-94); Platelet Count 212 K/mm3 (140-440); Red Blood Count 5.42 M/mm3 (3.65-5.03); Red Cell Distribution Width 15.3 % (13.2-15.2)
[2019-10-28 07:56] LABS: BUN/Creatinine Ratio 16; Blood Urea Nitrogen 16 mg/dL (9-20); Calcium 9.3 mg/dL (8.4-10.2); Hemolysis Index 4
[2019-10-28] MEDS: BUDESONIDE 0.5 MG/2 ML NEBU IH SCH ×2 (07:57→21:13)
[2019-10-28] MEDS: ARFORMOTEROL 15 MCG/2 ML NEBU IH SCH ×2 (07:57→21:13)
[2019-10-28] MEDS: LOSARTAN 50 MG TAB PO SCH (09:25)
[2019-10-28] MEDS: ASPIRIN EC 325 MG TAB PO SCH (09:25)
[2019-10-28] MEDS: LATANOPROST 0.005% OPHTH SOLN 2.5 ML OU SCH (18:11)
[2019-10-28] MEDS: MONTELUKAST 10 MG TAB PO SCH (18:11)
[2019-10-28] MEDS: ENOXAPARIN 40 MG/0.4 ML INJ SUB-Q SCH (21:39)
[2019-10-29] MEDS: ARFORMOTEROL 15 MCG/2 ML NEBU IH SCH ×2 (08:33→20:14)
[2019-10-29] MEDS: BUDESONIDE 0.5 MG/2 ML NEBU IH SCH ×2 (08:33→20:15)
[2019-10-29] MEDS: ASPIRIN EC 325 MG TAB PO SCH (09:39)
[2019-10-29] MEDS: LOSARTAN 50 MG TAB PO SCH (09:39)
[2019-10-29] MEDS: LATANOPROST 0.005% OPHTH SOLN 2.5 ML OU SCH (18:51)
[2019-10-29] MEDS: MONTELUKAST 10 MG TAB PO SCH (18:51)
[2019-10-29] MEDS: hydrALAZINE 20 MG/1 ML INJ IV PRN (21:22)
[2019-10-29] MEDS: ENOXAPARIN 40 MG/0.4 ML INJ SUB-Q SCH (21:22)
[2019-10-30] MEDS: hydrALAZINE 20 MG/1 ML INJ IV PRN (05:08)
[2019-10-30] MEDS: ARFORMOTEROL 15 MCG/2 ML NEBU IH SCH ×2 (08:00→20:23)
[2019-10-30] MEDS: BUDESONIDE 0.5 MG/2 ML NEBU IH SCH ×2 (08:00→20:23)
--- NOTE | 2019-10-30 10:12 | Progress Note ---
Subjective Date of service: 10/30/19 Principal diagnosis: CVA with right hemiparesis Interval history: Patient was found down on the floor for approximately 2 days and was brought to the ER. He had slurred speech along with right-sided weakness. CT head showed no acute changes but did show chronic infarcts as well as notable enlargements of the lacrimal glands and parotid gland. MRI brain showed subacute infarct in the m[place]jo. Echocardiogram showed mild left ventricular diastolic dysfunction and an EF of 55%. CTA neck showed no acute abnormalities but did notate the parotid gland abnormalities. CTA head also noted the enlarged lacrimal glands, bilateral parotid lesions with the largest on the left, incidental development of venous anomaly on the left inferior frontal lobe, and a right superior ophthalmic vein dilation. Otherwise [place] and MCA were normal. Radiologist opined the lesions in the parotid and lacrimal glands could be benign however could also be worrisome for lymphoma. Pelvic x-ray showed mild degenerative changes but no acute fracture. Heme-onc consult was obtained and he opined that the enlarged lacrimal gland and parotid glands could also be due to a rheumatologic issue. At any rate and ENT follow-up as an outpatient would be needed for further diagnostic biopsies. He also evaluated the patient for elevated hemoglobin hematocrit. Iron was given and the patient was also referred for outpatient follow-up. Neurology was also consulted and agreed with the findings above however also mentioned that the bitemporal atrophy could point to a level of dementia in the patient. Patient was start on secondary stroke prevention. Hyperkalemia was treated with Kayexalate and did resolve. Patient was given IV fluids for rhabdomyolysis and total CK was still elevated at 291 at last check. Platelets consistently decreased during his admission and Lovenox was held due to platelets of 139. At this point the patient continues to be high risk for further complications including bleeding risk, recurrent stroke, unknown lacrimal and parotid gland disease, venous malformation and elevated CK. Will need to monitor the patient closely along with labs and make adjustments accordingly. Patient also high risk due to not being on any blood pressure medication at the time of discharge with ongoing blood pressure issues and a total of 3 blood pressure medications prior to admission. Interval History: Patient is participating in therapy and making reasonable progress. Taking rest breaks as needed. +BM. Afebrile. Denies palpitations, dyspnea, cough, N/V. Patient does have dizziness and is stating that his vision seems to be getting worse. He is able to read signs which are fairly close and at times is able to read signs greater than 25 feet. Still has a slight disconjugate gaze, which is likely contributing to the dizziness. Uncertain of intraocular pressure. Have contacted his operator/assistant foreman and am waiting on a return call. Also contacted his pharmacy as the patient now states he was taking 3 different eyedrops. According to the pharmacy the only eyedrops he was taking was latanoprost, gentamicin, sulfacetamide, and artificial tears. I am attempting to confirm with the operator/assistant foreman that the 2 antibiotics were only for postprocedural and are conjunctivitis. We will try to ascertain whether or not we can check intraocular pressure here at the hospital, that is not within my skill set. CVA with right hemiparesis: Monitor for neuro decline, post stroke depression, cognitive deficits, seizure, worsening dysphagia, shoulder hand syndrome, sensory deficits, spasticity, bowel/bladder deficits, sleep disturbance, vision deficits and DVT. Dysarthria: Continue HOME HEALTH CNA to improve ability to speak clearly by strengthening and improving control of muscles, improving breath support and slowing rate of speech. Diplopia: Continue to work with patient to improve scanning and ability to strengthen right eye. Follow-up with ophthalmology. Stable Dysphagia: Continue current diet. HOME HEALTH CNA to monitor and advance diet as able, and perform FEES, MBSS or EStim as needed. Hypertension: Blood pressure elevated over last several days. Will start amlodipine. Monitor for improvement. Glaucoma: continue medications. Will need follow up with operator/assistant foreman COPD: Continue formulary substituted inhalers. No shortness of breath currently. Monitor for need to increase medications are supplemental oxygen. Chest x-ray as needed Osteoarthritis: Pain improved with Tylenol currently. Continue to monitor. Has Tylenol for symptomatic relief. Mild to moderate degenerative changes on x-ray previously seen. Modalities as needed Rhabdomyolysis: Total CK has normalized at 138. Renal function doing well. Co ntinue to monitor but this is likely resolved. Thrombocytopenia: improved, Monitor Parotid and lacrimal gland abnormalities: Continue to monitor. Patient will need outpatient follow-up with ENT and heme-onc. With new information obtained from the brother will obtain records from [facility]. Still have not heard back from outside hospital. All records, vitals, labs and medications were reviewed. No other issues per patient, nursing or therapy. Objective - Exam Narrative Exam: MUSCULOSKELETAL SPECIALTY EXAM CONSTITUTIONAL: Well developed, well nourished, appropriately groomed. RIGHT hand dominant. HEENT: Right eyelid eversion on the inferior aspect. Red and irritated looking. Left eye less red and irritated appearance Quarter sized structure just anterior to the left ear, nontender to palpation, mobile. Right eye slight medial gaze preference, however extraocular eye movements full and intact RESPIRATORY: Clear to auscultation bilaterally, distant lung sounds, no increased work of breathing CARDIOVASCULAR: Regular Rate/ Rhythm, no swelling, edema or tenderness in BUE or BLE. All extremities warm. GI: + bowel sounds, soft, NTTP, nondistended. INTEGUMENTARY: Normal, no lesion, rash, masses or bruising noted in extremities. MUSCULOSKELETAL: BUE and BLE normal without defect, crepitus, subluxation, effusion, arthritic changes or TTP. R 3 /5 L 4+ /5 ROM reduced on right Tone reduced on right NEURO: CN V : Facial sensation impaired on right CN VII : Right facial droop CN XII : Tongue protrudes slightly right Sensation intact in all extremities without extinction. No tremor noted in 4 extremities. Naming and repetition intact. Follows 2 step commands. Aphasia not appreciated Dysarthria present Dysphagia present Neglect not appreciated POSTURE and GAIT: Sitting posture good. Loss of balance when walking. Able to ambulate with a rolling walker fairly well at this point, but still has noticeable issues with guidance of walker and progression of right foot without dragging, still has loss of balance with transfers as well, also walking with wide-based quad cane. PSYCH: Alert, oriented x3, affect appears euthymic. Insight appears intact. - Constitutional Vitals: Vital Signs - 12hr 10/29/19 10/29/19 10/30/19 22:52 23:22 04:02 Temperature 98.1 F 98.2 F Pulse Rate 71 73 Pulse Rate [ Anterior Bilateral Throughout] Respiratory 20 16 16 Rate Respiratory Rate [Anterior Bilateral Throughout] Blood Pressure 137/68 168/86 O2 Sat by Pulse 94 94 Oximetry 10/30/19 10/30/19 10/30/19 05:08 08:00 08:07 Temperature 97.4 F L Pulse Rate 73 65 Pulse Rate [ 66 Anterior Bilateral Throughout] Respiratory 18 Rate Respiratory 16 Rate [Anterior Bilateral Throughout] Blood Pressure 168/86 151/77 O2 Sat by Pulse 97 Oximetry 10/30/19 08:08 Temperature Pulse Rate Pulse Rate [ Anterior Bilateral Throughout] Respiratory 20 Rate Respiratory Rate [Anterior Bilateral Throughout] Blood Pressure O2 Sat by Pulse 96 Oximetry - Allied health notes Allied health notes reviewed: nursing, PT, ST, OT - Labs CBC & Chem 7: 10/28/19 06:48 10/28/19 06:48 Labs: Laboratory Results - last 72 hr 10/28/19 10/28/19 06:48 06:48 WBC 5.3 RBC 5.42 H Hgb 13.1 Hct 40.4 MCV 75 L MCH 24 L MCHC 32 RDW 15.3 H Plt Count 212 Sodium 142 Potassium 4.0 Chloride 104.1 Carbon Dioxide 26 Anion Gap 16 BUN 16 Creatinine 1.0 Estimated GFR > 60 BUN/Creatinine Ratio 16 Glucose 93 Calcium 9.3 Assessment and Plan CVA with right hemiparesis: Continue Secondary Stroke Prevention (Antithrombotic, Statin (Goal LDL-C <70), BP control (Goal <140/90), GLU control (Goal A1c <7), and lifestyle modification). Monitor for recurrent stroke or post-stroke recrudescence. Continue neuromotor therapy as above. Family training when available. Monitor for post stroke depression, cognitive deficits, seizure, dysphagia, aphasia, shoulder hand syndrome, sensory deficits, spasticity, bowel/bladder deficits, sleep disturbance, vision deficits and DVT. Prognosis for recovery and Secondary Stroke Prevention discussed. Follow up with Neurology. No driving until cleared by Neurologist. Diplopia: Slight medial deviation of right eye resulting in diplopia as well as a sense of dizziness at times. Continue to work on scanning to improve adaptive strategies. Unfortunately we do not have ophthalmology or neuro optometry available at the hospital. Patient will need to follow-up with operator/assistant foreman at discharge. Dysarthria: Continue HOME HEALTH CNA to improve ability to speak clearly by strengthening and improving control of muscles, improving breath support and slowing rate of speech. Dysphagia: Continue current diet. HOME HEALTH CNA to monitor and advance diet as able, and perform FEES, MBSS or EStim as needed. Hypertension: Continue medications. Monitor blood pressure. Adjust medications as needed for normotension. Hold for hypotension. Patient was previously on losartan, amlodipine, clonidine. Glaucoma: Continue latanoprost. Contacted operator/assistant foreman, awaiting callback COPD: Restart montelukast and inhalers. Patient previously on Symbicort 160/45 at home will substitute per our formulary here. Monitor along with respiratory therapy. Osteoarthritis: Tylenol for pain relief. X-rays reviewed and show mild degenerative changes in the right hip which is where the patient predominately has pain. Rhabdomyolysis: Appears resolved Thrombocytopenia Improved, monitor. Consider heme-onc consult if needed. Parotid and lacrimal gland abnormalities: Continue to monitor. Patient will need outpatient follow-up with ENT. Apparently this is a known issue and was treated previously at [facility]. Will attempt to request records ADL dysfunction: OT will work on improving ability to perform ADLs (including assistive devices) to increase independence and decrease caregiver burden and improve functional transfers and mobility training. Difficulty walking: PT will work on gait training and proper use of assistive de vices and advance as appropriate to use of stairs and outside ambulation on uneven surfaces. Unsteadiness on feet: PT will work on improving static and dynamic sitting and standing balance as well as proper use of assistive devices to decrease risk of falls. Abnormality of gait: PT will work to improve safety and efficiency of gait through neuromotor training and gait training along with instruction on proper use of assistive devices. Muscle weakness: PT & OT will work on strengthening exercises to improve functional strength including mixture of closed and open kinetic chain exercises. Debility: PT & OT will work on improving overall functional status to improve participation with ADLs, mobility and social involvement. Fatigue: PT & OT will work on improving endurance through aerobic exercises and therapeutic activity while monitoring patients tolerance for activity and vital signs as needed. DVT ppx: Lovenox Pain: Continue physical modalities in therapy and pain medications as needed to achieve functional pain control. Sleep: Monitor and address as needed. Bowel: Monitor and address as needed. Appetite: Monitor and address as needed. Discharge planning: Pending therapy progress and care plan meeting. Will continue discussion with therapy team, SW, patient and family. Restrictions/ Precautions: Falls WB status: FWB Functional Hx: ADLs: Independent Cognition: Independent Mobility: Cane Barriers to Discharge: Decreased mobility and ability to perform self care, balance deficits, weakness Estimated Length of Stay: 1421 days Discharge Destination: Home with family Versus home alone, may be able to go back to [place] near family, look to discharge next week.
[2019-10-30] MEDS: LOSARTAN 50 MG TAB PO SCH (11:12)
[2019-10-30] MEDS: ASPIRIN EC 325 MG TAB PO SCH (11:12)
[2019-10-30] MEDS ORDERED: HYPROMELLOSE 0.5% OPHTH SOLN 15 ML OU PRN (11:14)
[2019-10-30] MEDS: amLODIPine 5 MG TAB PO SCH (11:15)
[2019-10-30] MEDS ORDERED: TETRACAINE 0.5% OPHTH SOLN 4ML OU ONE (12:15)
[2019-10-30] MEDS ORDERED: TETRACAINE 0.5% OPHTH SOLN 4ML ONE (12:33)
--- NOTE | 2019-10-30 12:44 | Event Note ---
Date: 10/30/19 I was asked to see the patient due to a change in his vision. Patient rehab physician is Dr. Holliday. Patient states this morning he had change in his vision there was acute in nature. He was asked to check the intraocular pressures on the patient to rule out acute closed angle glaucoma. OS: 11 OD: 14
[2019-10-30] MEDS: MONTELUKAST 10 MG TAB PO SCH (17:15)
[2019-10-30] MEDS: LATANOPROST 0.005% OPHTH SOLN 2.5 ML OU SCH (17:15)
[2019-10-30] MEDS: ENOXAPARIN 40 MG/0.4 ML INJ SUB-Q SCH (21:15)
[2019-10-31] MEDS: ARFORMOTEROL 15 MCG/2 ML NEBU IH SCH ×3 (07:43→21:23)
[2019-10-31] MEDS: BUDESONIDE 0.5 MG/2 ML NEBU IH SCH ×3 (07:43→21:23)
[2019-10-31] MEDS: ASPIRIN EC 325 MG TAB PO SCH (09:00)
[2019-10-31] MEDS: LOSARTAN 50 MG TAB PO SCH (09:00)
[2019-10-31] MEDS: amLODIPine 5 MG TAB PO SCH (09:00)
--- NOTE | 2019-10-31 10:58 | Cat Scan Report ---
CT BRAIN: 10/31/2019 INDICATION / CLINICAL INFORMATION: Vision changes, Known CVA. COMPARISON: CT brain 10/13/2019. MRI brain 10/14/2019. FINDINGS: BRAIN/INTRACRANIAL STRUCTURES: Unenhanced CT images of the brain were obtained and compared to the pr ior exams. Overall, there is been no change. Again seen is pronounced chronic white matter hypoattenuation, with evidence of lacunar changes in th e periventricular white matter and basal ganglia. Thalamic lacunar changes are present. Chronic and subacute ischemic changes in the maryjo are noted, corresponding to the findings on the josselin or exam. There is no CT evidence of acute superimposed ischemic injury, hemorrhage, or mass. There are no abno rmal extra-axial fluid collections. EXTRACRANIAL STRUCTURES: Incidental note is again made of prominent diffuse enlargement of the lacrim al glands. In addition, bilateral parotid lesions are present, unchanged when compared to the prior e xams. IMPRESSION: No acute abnormality. Extensive chronic ischemic changes. All CT scans at this location are performed using dose reduction to ALARA by means of automated expos ure control. Signer Name: Darryl Patino MD Signed: 10/31/2019 10:54 AM Workstation Name: [id number]
--- NOTE | 2019-10-31 14:28 | Progress Note ---
Subjective Date of service: 10/31/19 Principal diagnosis: CVA with right hemiparesis Interval history: Patient was found down on the floor for approximately 2 days and was brought to the ER. He had slurred speech along with right-sided weakness. CT head showed no acute changes but did show chronic infarcts as well as notable enlargements of the lacrimal glands and parotid gland. MRI brain showed subacute infarct in the maryjo. Echocardiogram showed mild left ventricular diastolic dysfunction and an EF of 55%. CTA neck showed no acute abnormalities but did notate the parotid gland abnormalities. CTA head also noted the enlarged lacrimal glands, bilateral parotid lesions with the largest on the left, incidental development of venous anomaly on the left inferior frontal lobe, and a right superior ophthalmic vein dilation. Otherwise [place] of [place] and MCA were normal. Radiologist opined the lesions in the parotid and lacrimal glands could be benign however could also be worrisome for lymphoma. Pelvic x-ray showed mild degenerative changes but no acute fracture. Heme-onc consult was obtained and he opined that the enlarged lacrimal gland and parotid glands could also be due to a rheumatologic issue. At any rate and ENT follow-up as an outpatient would be needed for further diagnostic biopsies. He also evaluated the patient for elevated hemoglobin hematocrit. Iron was given and the patient was also referred for outpatient follow-up. Neurology was also consulted and agreed with the findings above however also mentioned that the bitemporal atrophy could point to a level of dementia in the patient. Patient was start on secondary stroke prevention. Hyperkalemia was treated with Kayexalate and did resolve. Patient was given IV fluids for rhabdomyolysis and total CK was still elevated at 291 at last check. Platelets consistently decreased during his admission and Lovenox was held due to platelets of 139. At this point the patient continues to be high risk for further complications including bleeding risk, recurrent stroke, unknown lacrimal and parotid gland disease, venous malformation and elevated CK. Will need to monitor the patient closely along with labs and make adjustments accordingly. Patient also high risk due to not being on any blood pressure medication at the time of discharge with ongoing blood pressure issues and a total of 3 blood pressure medications prior to admission. Interval History: Patient is participating in therapy and making reasonable progress. Taking rest breaks as needed. +BM. Afebrile. Denies palpitations, dyspnea, cough, N/V. Transient vision loss?: Patient states that he is still having issues with inte rmittent "white out" of his vision lasting a few seconds. Denies any changes in issues that exacerbate or make this better and it is inconsistent as to when it occurs. This does occur in both eyes, not necessarily associated with any pain in the eyes. I was able to contact the eye clinic that he told me he has previously been seen (recently according to him). They informed me that they have not seen him since 2016. Uncertain as to where he is getting the medications from but was able to confirm with pharmacy what he has had recently. Unfortunately the physician who also saw him back in 2016 is on hiatus and not available to discuss his case with. We do not have ophthalmology available for consult. Could very well be related to the current CVA and possible vasospasm. Less likely causes include increased intracranial pressure, and possibility of a relation to the unknown cause of his enlarged lacrimal and parotid glands. Have encouraged the patient to definitely follow-up with ENT and ophthalmology and heme-onc at discharge. CT head was done this morning and I have personally reviewed the images as well as the report. No interval changes since previous imaging. Blood pressure slightly improved with addition of amlodipine. CVA with right hemiparesis: Monitor for neuro decline, post stroke depression, cognitive deficits, seizure, worsening dysphagia, shoulder hand syndrome, sensory deficits, spasticity, bowel/bladder deficits, sleep disturbance, vision deficits and DVT. Dysarthria: Continue MANAGING COGNITIVE ENGINEER to improve ability to speak clearly by strengthening and improving control of muscles, improving breath support and slowing rate of speech. Diplopia: Continue to work with patient to improve scanning and ability to strengthen right eye. Follow-up with ophthalmology. Stable Dysphagia: Continue current diet. MANAGING COGNITIVE ENGINEER to monitor and advance diet as able, and perform FEES, MBSS or EStim as needed. Hypertension: Blood pressure elevated over last several days. Will start amlodipine. Monitor for improvement. Glaucoma: continue medications. Intraocular pressure check was normal when performed by ER physician. Will need follow up with plate filler COPD: Continue formulary substituted inhalers. No shortness of breath currently. Monitor for need to increase medications are supplemental oxygen. Chest x-ray as needed Osteoarthritis: Pain improved with Tylenol currently. Continue to monitor. Has Tylenol for symptomatic relief. Mild to moderate degenerative changes on x-ray previously seen. Modalities as needed Rhabdomyolysis: Total CK has normalized at 138. Renal function doing well. Continue to monitor but this is likely resolved. Thrombocytopenia: improved, Monitor Parotid and lacrimal gland abnormalities: Continue to monitor. Patient will need outpatient follow-up with ENT and heme-onc. Still have not heard back from outside hospital. All records, vitals, labs and medications were reviewed. No other issues per patient, nursing or therapy. Objective - Exam Narrative Exam: MUSCULOSKELETAL SPECIALTY EXAM CONSTITUTIONAL: Well developed, well nourished, appropriately groomed. RIGHT hand dominant. HEENT: Right eyelid eversion on the inferior aspect. Red and irritated looking. Left eye less red and irritated appearance Quarter sized structure just anterior to the left ear, nontender to palpation, mobile. Right eye slight medial gaze preference, however extraocular eye movements full and intact RESPIRATORY: Clear to auscultation bilaterally, distant lung sounds, no increased work of breathing CARDIOVASCULAR: Regular Rate/ Rhythm, no swelling, edema or tenderness in BUE or BLE. All extremities warm. GI: + bowel sounds, soft, NTTP, nondistended. INTEGUMENTARY: Normal, no lesion, rash, masses or bruising noted in extremities. MUSCULOSKELETAL: BUE and BLE normal without defect, crepitus, subluxation, effusion, arthritic changes or TTP. R 4- /5 L 4+ /5 ROM reduced on right Tone reduced on right NEURO: CN V : Facial sensation impaired on right CN VII : Right facial droop CN XII : Tongue protrudes slightly right Sensation intact in all extremities without extinction. No tremor noted in 4 extremities. Naming and repetition intact. Follows 2 step commands. Aphasia not appreciated Dysarthria present Dysphagia present Neglect not appreciated POSTURE and GAIT: Sitting posture good. Loss of balance when walking. Able to ambulate with a rolling walker fairly well at this point, but still has noticeable issues with guidance of walker and progression of right foot without dragging, still has loss of balance with transfers as well, also walking with wide-based quad cane. PSYCH: Alert, oriented x3, affect appears euthymic. Insight appears intact. - Constitutional Vitals: Vital Signs - 12hr 10/31/19 10/31/19 10/31/19 04:47 08:22 09:00 Temperature 98.2 F 98.3 F Pulse Rate 64 62 62 Pulse Rate [ Anterior Bilateral Throughout] Respiratory 18 18 Rate Respiratory Rate [Anterior Bilateral Throughout] Blood Pressure 167/83 167/83 Blood Pressure 136/65 [Left] O2 Sat by Pulse 95 98 Oximetry 10/31/19 10/31/19 09:05 11:18 Temperature 98.4 F Pulse Rate 63 Pulse Rate [ 68 Anterior Bilateral Throughout] Respiratory 19 Rate Respiratory 19 Rate [Anterior Bilateral Throughout] Blood Pressure 137/74 Blood Pressure [Left] O2 Sat by Pulse 98 Oximetry - Allied health notes Allied health notes reviewed: nursing, PT, ST, OT - Labs CBC & Chem 7: 10/28/19 06:48 10/28/19 06:48 - Imaging and cardiology CT Scan - head: report reviewed, image reviewed Assessment and Plan CVA with right hemiparesis: Continue Secondary Stroke Prevention (Antithrombotic, Statin (Goal LDL-C <70), BP control (Goal <140/90), GLU control (Goal A1c <7), and lifestyle modification). Monitor for recurrent stroke or post-stroke recrudescence. Continue neuromotor therapy as above. Family training when available. Monitor for post stroke depression, cognitive deficits, seizure, dysphagia, aphasia, shoulder hand syndrome, sensory deficits, spasticity, bowel/bladder deficits, sleep disturbance, vision deficits and DVT. Prognosis for recovery and Secondary Stroke Prevention discussed. Follow up with Neurology. No driving until cleared by Neurologist. Diplopia: Slight medial deviation of right eye resulting in diplopia as well as a sense of dizziness at times. Continue to work on scanning to improve adaptive strategies. Unfortunately we do not have ophthalmology or neuro optometry available at the hospital. Patient will need to follow-up with plate filler at discharge. Dysarthria: Continue MANAGING COGNITIVE ENGINEER to improve ability to speak clearly by strengthening and improving control of muscles, improving breath support and slowing rate of speech. Dysphagia: Continue current diet. MANAGING COGNITIVE ENGINEER to monitor and advance diet as able, and perform FEES, MBSS or EStim as needed. Hypertension: Continue medications. Monitor blood pressure. Adjust medications as needed for normotension. Hold for hypotension. Patient was previously on losartan, amlodipine, clonidine. Glaucoma: Continue latanoprost. Contacted plate filler office again, they last saw patient in 2016 and the MD is on extended leave. COPD: Restart montelukast and inhalers. Patient previously on Symbicort 160/45 at home will substitute per our formulary here. Monitor along with respiratory therapy. Osteoarthritis: Tylenol for pain relief. X-rays reviewed and show mild degenerative changes in the right hip which is where the patient predominately has pain. Rhabdomyolysis: Appears resolved Thrombocytopenia Improved, monitor. Consider heme-onc consult if needed. Parotid and lacrimal gland abnormalities: Continue to monitor. Patient will need outpatient follow-up with ENT. Apparently this is a known issue and was treated previously at [facility]. Will attempt to request records ADL dysfunction: OT will work on improving ability to perform ADLs (including assistive devices) to increase independence and decrease caregiver burden and improve functional transfers and mobility training. Difficulty walking: PT will work on gait training and proper use of assistive devices and advance as appropriate to use of stairs and outside ambulation on uneven surfaces. Unsteadiness on feet: PT will work on improving static and dynamic sitting and standing balance as well as proper use of assistive devices to decrease risk of falls. Abnormality of gait: PT will work to improve safety and efficiency of gait through neuromotor training and gait training along with instruction on proper use of assistive devices. Muscle weakness: PT & OT will work on strengthening exercises to improve functional strength including mixture of closed and open kinetic chain exercises. Debility: PT & OT will work on improving overall functional status to improve participation with ADLs, mobility and social involvement. Fatigue: PT & OT will work on improving endurance through aerobic exercises and therapeutic activity while monitoring patients tolerance for activity and vital signs as needed. DVT ppx: Lovenox Pain: Continue physical modalities in therapy and pain medications as needed to achieve functional pain control. Sleep: Monitor and address as needed. Bowel: Monitor and address as needed. Appetite: Monitor and address as needed. Discharge planning: Pending therapy progress and care plan meeting. Will continue discussion with therapy team, SW, patient and family. Restrictions/ Precautions: Falls WB status: FWB Functional Hx: ADLs: Independent Cognition: Independent Mobility: Cane Barriers to Discharge: Decreased mobility and ability to perform self care, balance deficits, weakness Estimated Length of Stay: 1421 days Discharge Destination: Home with family Versus home alone, may be able to go back to [place] near family, look to discharge next week.
[2019-10-31] MEDS: MONTELUKAST 10 MG TAB PO SCH (17:16)
[2019-10-31] MEDS: LATANOPROST 0.005% OPHTH SOLN 2.5 ML OU SCH (17:16)
[2019-10-31] MEDS: ENOXAPARIN 40 MG/0.4 ML INJ SUB-Q SCH (21:15)
[2019-10-31] MEDS: hydrALAZINE 20 MG/1 ML INJ IV PRN (21:15)
[2019-11-01] MEDS: ARFORMOTEROL 15 MCG/2 ML NEBU IH SCH ×2 (08:58→21:30)
[2019-11-01] MEDS: BUDESONIDE 0.5 MG/2 ML NEBU IH SCH ×2 (08:58→21:30)
[2019-11-01] MEDS: ASPIRIN EC 325 MG TAB PO SCH (09:06)
[2019-11-01] MEDS: amLODIPine 5 MG TAB PO SCH (09:09)
[2019-11-01] MEDS: LOSARTAN 50 MG TAB PO SCH (09:09)
--- NOTE | 2019-11-01 12:56 | Progress Note ---
Subjective Date of service: 11/01/19 Principal diagnosis: CVA with right hemiparesis Interval history: Patient was found down on the floor for approximately 2 days and was brought to the ER. He had slurred speech along with right-sided weakness. CT head showed no acute changes but did show chronic infarcts as well as notable enlargements of the lacrimal glands and parotid gland. MRI brain showed subacute infarct in the [place]. Echocardiogram showed mild left ventricular diastolic dysfunction and an EF of 55%. CTA neck showed no acute abnormalities but did notate the parotid gland abnormalities. CTA head also noted the enlarged lacrimal glands, bilateral parotid lesions with the largest on the left, incidental development of venous anomaly on the left inferior frontal lobe, and a right superior ophthalmic vein dilation. Otherwise [place] and MCA were normal. Radiologist opined the lesions in the parotid and lacrimal glands could be benign however could also be worrisome for lymphoma. Pelvic x-ray showed mild degenerative changes but no acute fracture. Heme-onc consult was obtained and he opined that the enlarged lacrimal gland and parotid glands could also be due to a rheumatologic issue. At any rate and ENT follow-up as an outpatient would be needed for further diagnostic biopsies. He also evaluated the patient for elevated hemoglobin hematocrit. Iron was given and the patient was also referred for outpatient follow-up. Neurology was also consulted and agreed with the findings above however also mentioned that the bitemporal atrophy could point to a level of dementia in the patient. Patient was start on secondary stroke prevention. Hyperkalemia was treated with Kayexalate and did resolve. Patient was given IV fluids for rhabdomyolysis and total CK was still elevated at 291 at last check. Platelets consistently decreased during his admission and Lovenox was held due to platelets of 139. At this point the patient continues to be high risk for further complications including bleeding risk, recurrent stroke, unknown lacrimal and parotid gland disease, venous malformation and elevated CK. Will need to monitor the patient closely along with labs and make adjustments accordingly. Patient also high risk due to not being on any blood pressure medication at the time of discharge with ongoing blood pressure issues and a total of 3 blood pressure medications prior to admission. Interval History: Patient is participating in therapy and making reasonable progress. Taking rest breaks as needed. +BM. Afebrile. Denies palpitations, dyspnea, cough, N/V. Transient vision loss?: Patient states that he is having issues with intermitte nt "white out" of his vision lasting a few seconds. Denies any changes in issues that exacerbate or make this better and it is inconsistent as to when it occurs. This does occur in both eyes, not necessarily associated with any pain in the eyes. I was able to contact the eye clinic that he told me he has previously been seen (recently according to him). They informed me that they have not seen him since 2016. Unfortunately the physician who also saw him back in 2016 is on hiatus and not available to discuss his case with. We do not have ophthalmology available for consult. Could very well be related to the current CVA and possible vasospasm. Less likely causes include increased intracranial pressure, and possibility of a relation to the unknown cause of his enlarged lacrimal and parotid glands. Have encouraged the patient to definitely follow- up with ENT and ophthalmology and heme-onc at discharge. Intraocular pressure is normal and CT Head shows no new issues. CVA with right hemiparesis: Monitor for neuro decline, post stroke depression, cognitive deficits, seizure, worsening dysphagia, shoulder hand syndrome, sensory deficits, spasticity, bowel/bladder deficits, sleep disturbance, vision deficits and DVT. Dysarthria: Continue BACKHOE OPERATOR to improve ability to speak clearly by strengthening and improving control of muscles, improving breath support and slowing rate of speech. Diplopia: Continue to work with patient to improve scanning and ability to strengthen right eye. Follow-up with ophthalmology. Stable Dysphagia: Continue current diet. BACKHOE OPERATOR to monitor and advance diet as able, and perform FEES, MBSS or EStim as needed. Hypertension: Improving on current doses, monitor for stabilization. Monitor for improvement. Glaucoma: continue medications. Intraocular pressure check was normal when performed by ER physician. Will need follow up with automatic lathe operator COPD: Continue formulary substituted inhalers. No shortness of breath currently. Monitor for need to increase medications are supplemental oxygen. Chest x-ray as needed Osteoarthritis: Pain improved with Tylenol currently. Continue to monitor. Has Tylenol for symptomatic relief. Mild to moderate degenerative changes on x-ray previously seen. Modalities as needed Rhabdomyolysis: Total CK has normalized at 138. Renal function doing well. Continue to monitor but this is likely resolved. Thrombocytopenia: improved, Monitor. Recheck labs in AM Parotid and lacrimal gland abnormalities: Continue to monitor. Patient will need outpatient follow-up with ENT and heme-onc. Still have not heard back from outside hospital. All records, vitals, labs and medications were reviewed. No other issues per patient, nursing or therapy. Objective - Exam Narrative Exam: MUSCULOSKELETAL SPECIALTY EXAM CONSTITUTIONAL: Well developed, well nourished, appropriately groomed. RIGHT hand dominant. HEENT: Right eyelid eversion on the inferior aspect. Red and irritated looking. Left eye less red and irritated appearance Quarter sized structure just anterior to the left ear, nontender to palpation, mobile. Right eye slight medial gaze preference, however extraocular eye movements full and intact RESPIRATORY: Clear to auscultation bilaterally, distant lung sounds, no increased work of breathing CARDIOVASCULAR: Regular Rate/ Rhythm, no swelling, edema or tenderness in BUE or BLE. All extremities warm. GI: + bowel sounds, soft, NTTP, nondistended. INTEGUMENTARY: Normal, no lesion, rash, masses or bruising noted in extremities. MUSCULOSKELETAL: BUE and BLE normal without defect, crepitus, subluxation, effusion, arthritic changes or TTP. R 4- /5 L 4+ /5 ROM reduced on right Tone reduced on right NEURO: CN V : Facial sensation impaired on right CN VII : Right facial droop CN XII : Tongue protrudes slightly right Sensation intact in all extremities without extinction. No tremor noted in 4 extremities. Naming and repetition intact. Follows 2 step commands. Aphasia not appreciated Dysarthria present Dysphagia present Neglect not appreciated POSTURE and GAIT: Sitting posture good. Loss of balance when walking. Able to ambulate with a rolling walker fairly well at this point, but still has noticeable issues with guidance of walker and progression of right foot without dragging, still has loss of balance with transfers as well, also walking with wide-based quad cane. PSYCH: Alert, oriented x3, affect appears euthymic. Insight appears intact. - Constitutional Vitals: Vital Signs - 12hr 11/01/19 11/01/19 11/01/19 03:43 07:06 08:58 Temperature 98.1 F 97.8 F Pulse Rate 62 61 Pulse Rate [ 72 Anterior Bilateral Throughout] Respiratory 16 20 Rate Respiratory 18 Rate [Anterior Bilateral Throughout] Blood Pressure 131/70 Blood Pressure 159/86 [Left] O2 Sat by Pulse 96 Oximetry 11/01/19 11/01/19 09:09 12:09 Temperature 97.9 F Pulse Rate 88 75 Pulse Rate [ Anterior Bilateral Throughout] Respiratory 18 Rate Respiratory Rate [Anterior Bilateral Throughout] Blood Pressure 140/77 131/73 Blood Pressure [Left] O2 Sat by Pulse 97 Oximetry - Allied health notes Allied health notes reviewed: nursing, PT, ST, OT - Labs CBC & Chem 7: 10/28/19 06:48 10/28/19 06:48 Assessment and Plan CVA with right hemiparesis: Continue Secondary Stroke Prevention (Antit hrombotic, Statin (Goal LDL-C <70), BP control (Goal <140/90), GLU control (Goal A1c <7), and lifestyle modification). Monitor for recurrent stroke or post- stroke recrudescence. Continue neuromotor therapy as above. Family training when available. Monitor for post stroke depression, cognitive deficits, seizure, dysphagia, aphasia, shoulder hand syndrome, sensory deficits, spasticity, bowel/bladder deficits, sleep disturbance, vision deficits and DVT. Prognosis for recovery and Secondary Stroke Prevention discussed. Follow up with Neurology. No driving until cleared by Neurologist. Diplopia: Slight medial deviation of right eye resulting in diplopia as well as a sense of dizziness at times. Continue to work on scanning to improve adaptive strategies. Unfortunately we do not have ophthalmology or neuro optometry available at the hospital. Patient will need to follow-up with automatic lathe operator at discharge. Dysarthria: Continue BACKHOE OPERATOR to improve ability to speak clearly by strengthening and improving control of muscles, improving breath support and slowing rate of speech. Dysphagia: Continue current diet. BACKHOE OPERATOR to monitor and advance diet as able, and perform FEES, MBSS or EStim as needed. Hypertension: Continue medications. Monitor blood pressure. Adjust medications as needed for normotension. Hold for hypotension. Patient was previously on losartan, amlodipine, clonidine. Glaucoma: Continue latanoprost. Contacted automatic lathe operator office again, they last saw patient in 2016 and the MD is on extended leave. COPD: Restart montelukast and inhalers. Patient previously on Symbicort 160/45 at home will substitute per our formulary here. Monitor along with respiratory therapy. Osteoarthritis: Tylenol for pain relief. X-rays reviewed and show mild degenerative changes in the right hip which is where the patient predominately has pain. Rhabdomyolysis: Appears resolved Thrombocytopenia Improved, monitor. Consider heme-onc consult if needed. Parotid and lacrimal gland abnormalities: Continue to monitor. Patient will need outpatient follow-up with ENT. Apparently this is a known issue and was treated previously at [facility]. Will attempt to request records ADL dysfunction: OT will work on improving ability to perform ADLs (including as sistive devices) to increase independence and decrease caregiver burden and improve functional transfers and mobility training. Difficulty walking: PT will work on gait training and proper use of assistive devices and advance as appropriate to use of stairs and outside ambulation on uneven surfaces. Unsteadiness on feet: PT will work on improving static and dynamic sitting and standing balance as well as proper use of assistive devices to decrease risk of falls. Abnormality of gait: PT will work to improve safety and efficiency of gait through neuromotor training and gait training along with instruction on proper use of assistive devices. Muscle weakness: PT & OT will work on strengthening exercises to improve functional strength including mixture of closed and open kinetic chain exerc ises. Debility: PT & OT will work on improving overall functional status to improve participation with ADLs, mobility and social involvement. Fatigue: PT & OT will work on improving endurance through aerobic exercises and therapeutic activity while monitoring patients tolerance for activity and vital signs as needed. DVT ppx: Lovenox Pain: Continue physical modalities in therapy and pain medications as needed to achieve functional pain control. Sleep: Monitor and address as needed. Bowel: Monitor and address as needed. Appetite: Monitor and address as needed. Discharge planning: Pending therapy progress and care plan meeting. Will continue discussion with therapy team, SW, patient and family. Restrictions/ Precautions: Falls WB status: FWB Functional Hx: ADLs: Independent Cognition: Independent Mobility: Cane Barriers to Discharge: Decreased mobility and ability to perform self care, balance deficits, weakness Estimated Length of Stay: 1421 days Discharge Destination: Home with family in [facility] Wednesday. Family training prior to discharge
[2019-11-01] MEDS: LATANOPROST 0.005% OPHTH SOLN 2.5 ML OU SCH (17:24)
[2019-11-01] MEDS: MONTELUKAST 10 MG TAB PO SCH (17:24)
[2019-11-01] MEDS: ENOXAPARIN 40 MG/0.4 ML INJ SUB-Q SCH (22:26)
[2019-11-02 07:11] LABS: Hemoglobin 14.1 gm/dl (11.8-15.2); Mean Corpuscular HGB Conc 31 % (32-34); Mean Corpuscular Volume 76 fl (84-94); Platelet Count 300 K/mm3 (140-440); Red Blood Count 5.96 M/mm3 (3.65-5.03); Red Cell Distribution Width 16.1 % (13.2-15.2)
[2019-11-02 07:28] LABS: BUN/Creatinine Ratio 17; Blood Urea Nitrogen 15 mg/dL (9-20); Calcium 9.6 mg/dL (8.4-10.2); Hemolysis Index 15
[2019-11-02] MEDS: BUDESONIDE 0.5 MG/2 ML NEBU IH SCH ×3 (08:16→20:44)
[2019-11-02] MEDS: ARFORMOTEROL 15 MCG/2 ML NEBU IH SCH ×3 (08:16→20:44)
[2019-11-02] MEDS: amLODIPine 5 MG TAB PO SCH (09:37)
[2019-11-02] MEDS: ASPIRIN EC 325 MG TAB PO SCH (09:38)
[2019-11-02] MEDS: LOSARTAN 50 MG TAB PO SCH (09:38)
[2019-11-02] MEDS: MONTELUKAST 10 MG TAB PO SCH (17:52)
[2019-11-02] MEDS: LATANOPROST 0.005% OPHTH SOLN 2.5 ML OU SCH (17:54)
[2019-11-02] MEDS: ENOXAPARIN 40 MG/0.4 ML INJ SUB-Q SCH (22:05)
[2019-11-03] MEDS: BUDESONIDE 0.5 MG/2 ML NEBU IH SCH ×2 (08:49→20:17)
[2019-11-03] MEDS: ARFORMOTEROL 15 MCG/2 ML NEBU IH SCH ×2 (08:49→20:17)
[2019-11-03] MEDS: LOSARTAN 50 MG TAB PO SCH (10:45)
[2019-11-03] MEDS: ASPIRIN EC 325 MG TAB PO SCH (10:45)
[2019-11-03] MEDS: amLODIPine 5 MG TAB PO SCH (10:45)
--- NOTE | 2019-11-03 12:47 | Progress Note ---
Subjective Date of service: 11/03/19 Principal diagnosis: CVA with right hemiparesis Interval history: Patient was found down on the floor for approximately 2 days and was brought to the ER. He had slurred speech along with right-sided weakness. CT head showed no acute changes but did show chronic infarcts as well as notable enlargements of the lacrimal glands and parotid gland. MRI brain showed subacute infarct in the maryjo. Echocardiogram showed mild left ventricular diastolic dysfunction and an EF of 55%. CTA neck showed no acute abnormalities but did notate the parotid gland abnormalities. CTA head also noted the enlarged lacrimal glands, bilateral parotid lesions with the largest on the left, incidental development of venous anomaly on the left inferior frontal lobe, and a right superior ophthalmic vein dilation. Otherwise [place] of [place] and MCA were normal. Radiologist opined the lesions in the parotid and lacrimal glands could be benign however could also be worrisome for lymphoma. Pelvic x-ray showed mild degenerative changes but no acute fracture. Heme-onc consult was obtained and he opined that the enlarged lacrimal gland and parotid glands could also be due to a rheumatologic issue. At any rate and ENT follow-up as an outpatient would be needed for further diagnostic biopsies. He also evaluated the patient for elevated hemoglobin hematocrit. Iron was given and the patient was also referred for outpatient follow-up. Neurology was also consulted and agreed with the findings above however also mentioned that the bitemporal atrophy could point to a level of dementia in the patient. Patient was start on secondary stroke prevention. Hyperkalemia was treated with Kayexalate and did resolve. Patient was given IV fluids for rhabdomyolysis and total CK was still elevated at 291 at last check. Platelets consistently decreased during his admission and Lovenox was held due to platelets of 139. At this point the patient continues to be high risk for further complications including bleeding risk, recurrent stroke, unknown lacrimal and parotid gland disease, venous malformation and elevated CK. Will need to monitor the patient closely along with labs and make adjustments accordingly. Patient also high risk due to not being on any blood pressure medication at the time of discharge with ongoing blood pressure issues and a total of 3 blood pressure medications prior to admission. Interval History: Patient is participating in therapy and making reasonable progress. Taking rest breaks as needed. +BM. Afebrile. Denies palpitations, dyspnea, cough, N/V. CVA with right hemiparesis: Monitor for neuro decline, post stroke depression, cognitive deficits, seizure, worsening dysphagia, shoulder hand syndrome, sensory deficits, spasticity, bowel/bladder deficits, sleep disturbance, vision deficits and DVT. Dysarthria: Continue CERTIFIED CONTROL SYSTEMS TECHNICIAN to improve ability to speak clearly by strengthening and improving control of muscles, improving breath support and slowing rate of speech. Diplopia: Continue to work with patient to improve scanning and ability to strengthen right eye. Follow-up with ophthalmology. Stable Dysphagia: Continue current diet. CERTIFIED CONTROL SYSTEMS TECHNICIAN to monitor and advance diet as able, and perform FEES, MBSS or EStim as needed. Hypertension: Improving on current doses, monitor for stabilization. Monitor for improvement. Glaucoma: continue medications. Intraocular pressure check was normal when performed by ER physician. Will need follow up with precision instrument maker and repairer COPD: Continue formulary substituted inhalers. No shortness of breath currently. Monitor for need to increase medications are supplemental oxygen. Chest x-ray as needed Osteoarthritis: Pain improved with Tylenol currently. Continue to monitor. Has Tylenol for symptomatic relief. Mild to moderate degenerative changes on x-ray previously seen. Modalities as needed Rhabdomyolysis: Total CK has normalized at 138. Renal function doing well. Continue to monitor but this is likely resolved. Thrombocytopenia: improved, Monitor. Recheck labs in AM Parotid and lacrimal gland abnormalities: Continue to monitor. Patient will need outpatient follow-up with ENT and heme-onc. Still have not heard back from outside hospital. Transient vision loss?: Patient states that he is having issues with intermittent "white out" of his vision lasting a few seconds. Denies any changes in issues that exacerbate or make this better and it is inconsistent as to when it occurs. This does occur in both eyes, not necessarily associated with any pain in the eyes. I was able to contact the eye clinic that he told me he has previously been seen (recently according to him). They informed me that they have not seen him since 2016. Unfortunately the physician who also saw him back in 2016 is on hiatus and not available to discuss his case with. We do not have ophthalmology available for consult. Could very well be related to the current CVA and possible vasospasm. Less likely causes include increased intracranial pressure, and possibility of a relation to the unknown cause of his enlarged lacrimal and parotid glands. Have encouraged the patient to definitely follow-up with ENT and ophthalmology and heme-onc at discharge. Intraocular pressure is normal and CT Head shows no new issues. Team conference conducted yesterday via telephone due to physician needing to be at another facility for COVID-19 management. Patient continues to make progress and will be discharged this weekend. Still has difficulty with safety awareness at times but has progressed to an acceptable level for discharge home with family support and home health. Have discussed with a physician in [place] who will take over as PCP for the patient. We will get information to them for discharge and follow-up. All records, vitals, labs and medications were reviewed. No other issues per patient, nursing or therapy. Objective - Exam Narrative Exam: MUSCULOSKELETAL SPECIALTY EXAM CONSTITUTIONAL: Well developed, well nourished, appropriately groomed. RIGHT hand dominant. HEENT: Right eyelid eversion on the inferior aspect. Red and irritated looking. Left eye less red and irritated appearance Quarter sized structure just anterior to the left ear, nontender to palpation, mobile. Right eye slight medial gaze preference, however extraocular eye movements full and intact RESPIRATORY: Clear to auscultation bilaterally, distant lung sounds, no increased work of breathing CARDIOVASCULAR: Regular Rate/ Rhythm, no swelling, edema or tenderness in BUE or BLE. All extremities warm. GI: + bowel sounds, soft, NTTP, nondistended. INTEGUMENTARY: Normal, no lesion, rash, masses or bruising noted in extremities. MUSCULOSKELETAL: BUE and BLE normal without defect, crepitus, subluxation, effusion, arthritic changes or TTP. R 4- /5 L 4+ /5 ROM reduced on right Tone reduced on right NEURO: CN V : Facial sensation impaired on right CN VII : Right facial droop CN XII : Tongue protrudes slightly right Sensation intact in all extremities without extinction. No tremor noted in 4 extremities. Naming and repetition intact. Follows 2 step commands. Aphasia not appreciated Dysarthria present Dysphagia present Neglect not appreciated POSTURE and GAIT: Sitting posture good. Loss of balance when walking has improved. Able to ambulate with a rolling walker fairly well at this point, but still has noticeable issues with guidance of walker and progression of right foot without dragging, still has some loss of balance with transfers as well, also walking with wide-based quad cane. Safety awareness is still an issue. PSYCH: Alert, oriented x3, affect appears euthymic. Insight appears intact. - Constitutional Vitals: Vital Signs - 12hr 11/03/19 11/03/19 11/03/19 04:11 08:22 08:25 Temperature 98.3 F 98.7 F Pulse Rate 62 63 Pulse Rate [ Anterior Bilateral Throughout] Respiratory 17 20 Rate Respiratory Rate [Anterior Bilateral Throughout] Blood Pressure 147/72 177/93 Blood Pressure 177/93 [Left] O2 Sat by Pulse 96 99 Oximetry 11/03/19 08:49 Temperature Pulse Rate Pulse Rate [ 66 Anterior Bilateral Throughout] Respiratory Rate Respiratory 18 Rate [Anterior Bilateral Throughout] Blood Pressure Blood Pressure [Left] O2 Sat by Pulse Oximetry - Allied health notes Allied health notes reviewed: nursing, PT, ST, OT - Labs CBC & Chem 7: 11/02/19 06:37 11/02/19 06:37 Labs: Laboratory Results - last 72 hr 11/02/19 11/02/19 06:37 06:37 WBC 5.1 RBC 5.96 H Hgb 14.1 Hct 45.0 MCV 76 L MCH 24 L MCHC 31 L RDW 16.1 H Plt Count 300 Sodium 139 Potassium 4.3 Chloride 102.1 Carbon Dioxide 27 Anion Gap 14 BUN 15 Creatinine 0.9 Estimated GFR > 60 BUN/Creatinine Ratio 17 Glucose 91 Calcium 9.6 Assessment and Plan CVA with right hemiparesis: Continue Secondary Stroke Prevention (Antithrombotic, Statin (Goal LDL-C <70), BP control (Goal <140/90), GLU control (Goal A1c <7), and lifestyle modification). Monitor for recurrent stroke or post-stroke recrudescence. Continue neuromotor therapy as above. Family training when available. Monitor for post stroke depression, cognitive deficits, seizure, dysphagia, aphasia, shoulder hand syndrome, sensory deficits, spasticity, bowel/bladder deficits, sleep disturbance, vision deficits and DVT. Prognosis for recovery and Secondary Stroke Prevention discussed. Follow up with Neurology. No driving until cleared by Neurologist. Diplopia: Slight medial deviation of right eye resulting in diplopia as well as a sense of dizziness at times. Continue to work on scanning to improve adaptive strategies. Unfortunately we do not have ophthalmology or neuro optometry available at the hospital. Patient will need to follow-up with precision instrument maker and repairer at discharge. Dysarthria: Continue CERTIFIED CONTROL SYSTEMS TECHNICIAN to improve ability to speak clearly by strengthening and improving control of muscles, improving breath support and slowing rate of speech. Dysphagia: Continue current diet. CERTIFIED CONTROL SYSTEMS TECHNICIAN to monitor and advance diet as able, and perform FEES, MBSS or EStim as needed. Hypertension: Continue medications. Monitor blood pressure. Adjust medications as needed for normotension. Hold for hypotension. Patient was previously on losartan, amlodipine, clonidine. Glaucoma: Continue latanoprost. Contacted precision instrument maker and repairer office again, they last saw patient in 2015 and the MD is on extended leave. COPD: Restart montelukast and inhalers. Patient previously on Symbicort 160/45 at home will substitute per our formulary here. Monitor along with respiratory therapy. Osteoarthritis: Tylenol for pain relief. X-rays reviewed and show mild degenerative changes in the right hip which is where the patient predominately has pain. Rhabdomyolysis: Appears resolved Thrombocytopenia Improved, monitor. Consider heme-onc consult if needed. Parotid and lacrimal gland abnormalities: Continue to monitor. Patient will ne ed outpatient follow-up with ENT. Apparently this is a known issue and was treated previously at [facility]. Will attempt to request records ADL dysfunction: OT will work on improving ability to perform ADLs (including assistive devices) to increase independence and decrease caregiver burden and improve functional transfers and mobility training. Difficulty walking: PT will work on gait training and proper use of assistive devices and advance as appropriate to use of stairs and outside ambulation on uneven surfaces. Unsteadiness on feet: PT will work on improving static and dynamic sitting and standing balance as well as proper use of assistive devices to decrease risk of falls. Abnormality of gait: PT will work to improve safety and efficiency of gait through neuromotor training and gait training along with instruction on proper use of assistive devices. Muscle weakness: PT & OT will work on strengthening exercises to improve functional strength including mixture of closed and open kinetic chain exercises. Debility: PT & OT will work on improving overall functional status to improve participation with ADLs, mobility and social involvement. Fatigue: PT & OT will work on improving endurance through aerobic exercises and therapeutic activity while monitoring patients tolerance for activity and vital signs as needed. DVT ppx: Lovenox Pain: Continue physical modalities in therapy and pain medications as needed to achieve functional pain control. Sleep: Monitor and address as needed. Bowel: Monitor and address as needed. Appetite: Monitor and address as needed. Discharge planning: Plan to discharge with family tomorrow on Wednesday, November 2.. Will continue discussion with therapy team, SW, patient and family. Restrictions/ Precautions: Falls WB status: FWB Functional Hx: ADLs: Independent Cognition: Independent Mobility: Cane Barriers to Discharge: Decreased mobility and ability to perform self care, balance deficits, weakness Estimated Length of Stay: 1421 days Discharge Destination: Home with family in [place] on Wednesday. Family training prior to discharge
--- NOTE | 2019-11-03 13:15 | Discharge Summary ---
Providers - Providers Date of Admission: 10/17/19 13:13 Date of discharge: 11/04/19 Attending physician: MINESH AVILA III, MD 10/17/19 13:04 Occupational Therapy Evaluate and Treat [CONS] Routine Comment: Reason For Exam: ADL dysfunction Physical Therapy Evaluation and Treat [CONS] Routine Comment: Reason For Exam: Mobility Dysfunction Speech Therapy Evaluation and Treat [CONS] Routine Reason For Exam: Dysphagia, CVA 10/17/19 13:12 Consult to Case Management [CONS] Routine Services Needed at Discharge: Home Health Services Notified:: case management [facility] Reason for admission: CVA Condition: Good Pertinent studies: CT brain without contrast performed on October 31, 2019: When compared to prior CT brain there is no change. Pronounced chronic white matter hypoattenuation is seen with evidence of lacunar changes in the periventricular white matter and basal ganglia. Thalamic lacunar changes are also present. Chronic and subacute ischemic changes in the maryjo are noted. No acute abnormality otherwise noted. Hospital course: Patient was found down on the floor for approximately 2 days and was brought to the ER. He had slurred speech along with right-sided weakness. CT head showed no acute changes but did show chronic infarcts as well as notable enlargements of the lacrimal glands and parotid gland. MRI brain showed subacute infarct in the maryjo. Echocardiogram showed mild left ventricular diastolic dysfunction and an EF of 55%. CTA neck showed no acute abnormalities but did notate the parotid gland abnormalities. CTA head also noted the enlarged lacrimal glands, bilateral parotid lesions with the largest on the left, incidental development of venous anomaly on the left inferior frontal lobe, and a right superior ophthalmic vein dilation. Otherwise [place] of [place] and MCA were normal. Radiologist opined the lesions in the parotid and lacrimal glands could be benign however could also be worrisome for lymphoma. Pelvic x-ray showed mild degenerative changes but no acute fracture. Heme-onc consult was obtained and he opined that the enlarged lacrimal gland and parotid glands could also be due to a rheumatologic issue. At any rate and ENT follow-up as an outpatient would be needed for further diagnostic biopsies. He also evaluated the patient for elevated hemoglobin hematocrit. Iron was given and the patient was also referred for outpatient follow-up. Neurology was also consulted and agreed with the findings above however also mentioned that the bitemporal atrophy could point to a level of dementia in the patient. Patient was start on secondary stroke prevention. Hyperkalemia was treated with Kayexalate and did resolve. Patient was given IV fluids for rhabdomyolysis and total CK was still elevated at 291 at last check. Platelets consistently decreased during his admission and Lovenox was held due to platelets of 139. At this point the patient continues to be high risk for further complications including bleeding risk, recurrent stroke, unknown lacrimal and parotid gland disease, venous malformation and elevated CK. Will need to monitor the patient closely along with labs and make adjustments accordingly. Patient also high risk due to not being on any blood pressure medication at the time of discharge with ongoing blood pressure issues and a total of 3 blood pressure medications prior to admission. CVA with right hemiparesis: Continue Secondary Stroke Prevention (Antithrombotic, Statin (Goal LDL-C <70), BP control (Goal <140/90), GLU control (Goal A1c <7), and lifestyle modification). Monitor for recurrent stroke or post-stroke recrudescence. Continue neuromotor therapy as above. Family training when available. Monitor for post stroke depression, cognitive deficits, seizure, dysphagia, aphasia, shoulder hand syndrome, sensory deficits, spasticity, bowel/bladder deficits, sleep disturbance, vision deficits and DVT. Prognosis for recovery and Secondary Stroke Prevention discussed. Follow up with Neurology. No driving until cleared by Neurologist. Dysarthria: Continue CDS SALES ADVISOR to improve ability to speak clearly by strengthening and improving control of muscles, improving breath support and slowing rate of speech. Dysphagia: Continue current diet. CDS SALES ADVISOR to monitor and advance diet as able, and perform FEES, MBSS or EStim as needed. Hypertension: Improved on current doses, monitor for stabilization. Patient was previously on losartan, amlodipine, clonidine. COPD: Continue formulary substituted inhalers. No shortness of breath currently. Monitor for need to increase medications are supplemental oxygen. Osteoarthritis: Pain improved with Tylenol currently. Continue to monitor. Has Tylenol for symptomatic relief. Mild to moderate degenerative changes on x-ray previously seen. Modalities as needed Rhabdomyolysis: Total CK has normalized at 138. Renal function doing well. Continue to monitor but this is likely resolved. Thrombocytopenia: Normalized at 300 on last check 11/01. Monitor. Parotid and lacrimal gland abnormalities: Continue to monitor. Patient will need outpatient follow-up with ENT and heme-onc. Attempted to get OSH records with no luck. Transient vision loss?: Patient states that he is having issues with intermittent "white out" of his vision lasting a few seconds. Denies any changes in issues that exacerbate or make this better and it is inconsistent as to when it occurs. This does occur in both eyes, not necessarily associated with any pain in the eyes. I was able to contact the eye clinic that he told me he has previously been seen (recently according to him). They informed me that they have not seen him since 2016. Unfortunately the physician who also saw him back in 2016 is on hiatus and not available to discuss his case with. We do not have ophthalmology available for consult. Could very well be related to the current CVA and possible vasospasm. Less likely causes include increased intracranial pressure, and possibility of a relation to the unknown cause of his enlarged lacrimal and parotid glands. Have encouraged the patient to definitely follow-up with ENT and ophthalmology and heme-onc at discharge. Intraocular pressure is normal and CT Head shows no new issues. Diplopia: Continue to work with patient to improve scanning and ability to strengthen right eye. Follow-up with ophthalmology. Stable Glaucoma: continue medications. Intraocular pressure check was normal when performed by ER physician. Will need follow up with hospital aide Disposition: [id number] HOME UNDER HOME [facility] Time spent for discharge: >40mins Core Measure Documentation - Palliative Care Palliative Care/ Comfort Measures: Not Applicable - Core Measures Any of the following diagnoses?: stroke - Stroke Discharge Requirements Statin for LDL = or >70 mg/dl on DC: Yes Anticoag for atrial fib/atrial flutter: Not Applicable Antithrombotic for ischemic stroke: Yes Exam - Physical Exam Narrative exam: MUSCULOSKELETAL SPECIALTY EXAM CONSTITUTIONAL: Well developed, well nourished, appropriately groomed. RIGHT hand dominant. HEENT: Right eyelid eversion on the inferior aspect. Red and irritated looking. Left eye less red and irritated appearance Quarter sized structure just anterior to the left ear, nontender to palpation, mobile. Right eye slight medial gaze preference, however extraocular eye movements full and intact RESPIRATORY: Clear to auscultation bilaterally, distant lung sounds, no increased work of breathing CARDIOVASCULAR: Regular Rate/ Rhythm, no swelling, edema or tenderness in BUE or BLE. All extremities warm. GI: + bowel sounds, soft, NTTP, nondistended. INTEGUMENTARY: Normal, no lesion, rash, masses or bruising noted in extremities. MUSCULOSKELETAL: BUE and BLE normal without defect, crepitus, subluxation, effusion, arthritic changes or TTP. R 4 /5 L 4+ /5 ROM reduced on right Tone reduced on right NEURO: CN V : Facial sensation impaired on right CN VII : Right facial droop CN XII : Tongue protrudes slightly right Sensation intact in all extremities without extinction. No tremor noted in 4 extremities. Naming and repetition intact. Follows 2 step commands. Aphasia not appreciated Dysarthria present Dysphagia present Neglect not appreciated POSTURE and GAIT: Sitting posture good. Loss of balance when walking has improved. Able to ambulate with a rolling walker fairly well at this point, but still has noticeable issues with guidance of walker and progression of right foot without dragging, still has some loss of balance with transfers as well, also walking with wide-based quad cane. Safety awareness is still an issue. PSYCH: Alert, oriented x3, affect appears euthymic. Insight appears intact. - Constitutional Vitals: Temp Pulse Resp BP Pulse Ox 98.7 F 66 18 177/93 99 11/03/19 08:25 11/03/19 08:49 11/03/19 08:49 11/03/19 08:25 11/03/19 08:25 Plan Activity: advance as tolerated, no driving until cleared by PCP, fall precautions Diet: other (Cardiac, Ground meats, Mechanical soft) Special Instructions: record daily BP diary, physical therapy, occupational therapy, home health RN, other (CDS SALES ADVISOR) Durable Medical Equipment Needed Upon Discharge: Walker-Rolling, Bedside Commode Care Plan Goals: Patient will need to follow-up with new PCP to establish care. We have contacted a local physician in [place] to get this started. At that point the physician in [place] will need to authorize home health nursing and PT/OT/CDS SALES ADVISOR. Medications have been sent to a local pharmacy and will need to be picked up prior to the patient leaving the state. Patient will also need to follow-up with an hospital aide for glaucoma as well as this ill-defined transient vision change. Patient will also need to follow-up with ENT and Hem/Onc for further testing concerning the mass on the left cheek and lacrimal glands. Patient will need to follow-up with a neurologist for further surveillance of CVA. Follow up with: FREDDY LOCKHART MD [Primary Care Provider] - 7 Days Prescriptions: AtorvaSTATin [Lipitor] 40 mg PO QHS #30 tablet amLODIPine 5 mg PO QDAY #30 tablet Losartan [Cozaar] 50 mg PO QDAY #30 tablet Aspirin EC [Ecotrin] 325 mg PO QDAY #30 tablet Latanoprost 0.005% 1 drops OU QPM #1 bottle Montelukast [Singulair] 10 mg PO QPM #30 tablet Budesonide/Formoterol Fumarate [Symbicort 160-4.5 Mcg Inhaler] 10.2 gm IH BID #1 [email or web address]
[2019-11-03] MEDS: MONTELUKAST 10 MG TAB PO SCH (17:00)
[2019-11-03] MEDS: LATANOPROST 0.005% OPHTH SOLN 2.5 ML OU SCH (17:59)
[2019-11-03] MEDS: ENOXAPARIN 40 MG/0.4 ML INJ SUB-Q SCH (21:13)
--- NOTE | 2019-11-04 06:05 | Event Note ---
Date: 11/04/19 Due to increased concern for patient safety due to comorbidities, contact, scheduled discharge to another state today and lack of established physician services, will test patient for COVID-19 today prior to discharge. If NEGATIVE, will discharge home as planned. If POSITIVE will discharge to 3rd floor.
[2019-11-04] MEDS: ARFORMOTEROL 15 MCG/2 ML NEBU IH SCH (09:47)
[2019-11-04] MEDS: BUDESONIDE 0.5 MG/2 ML NEBU IH SCH (09:47)
[2019-11-04] MEDS: LOSARTAN 50 MG TAB PO SCH (11:40)
[2019-11-04 11:42] VITALS: BP 140/82
[2019-11-04] MEDS: amLODIPine 5 MG TAB PO SCH (11:42)
[2019-11-04] MEDS: ASPIRIN EC 325 MG TAB PO SCH (11:42)
== END 2019-11-04 13:00 | disposition home health service (06) | DRG 56 ==
LOC: 4A 11:33 → UNDOADMIN 11:33 → 4A 13:13
PROVIDERS: ADMIT Physical Medicine & Rehabilitation; ATTEND Physical Medicine & Rehabilitation
DX: I69.351 Hemiplegia and hemiparesis following cerebral infarction affecting right dominant side (principal); I63.9 Cerebral infarction, unspecified; M62.82 Rhabdomyolysis; I10 Essential (primary) hypertension; J44.9 Chronic obstructive pulmonary disease, unspecified; M19.90 Unspecified osteoarthritis, unspecified site; R47.1 Dysarthria and anarthria; R13.10 Dysphagia, unspecified; H40.9 Unspecified glaucoma; E87.5 Hyperkalemia; H53.2 Diplopia; D69.6 Thrombocytopenia, unspecified; R26.2 Difficulty in walking, not elsewhere classified; R53.81 Other malaise; Z80.9 Family history of malignant neoplasm, unspecified; Z82.49 Family history of ischemic heart disease and other diseases of the circulatory system; Z83.3 Family history of diabetes mellitus; Z82.3 Family history of stroke; Z79.82 Long term (current) use of aspirin; Z79.899 Other long term (current) drug therapy
CPT/HCPCS: 36415; 70450; 80048; 80053; 82550; 85025; 85027; 94640; G0378; A9270-GY; J0360; J1650; U0003